=== PATIENT | male | born 1950 | race Caucasian/White ===

== ENCOUNTER 2021-02-25 08:13 | Outpatient (REF) | payer MEDICARE, OTHER, SELFPAY ==
[2021-02-25 12:06] LABS: Prostate Specific Antigen 3.41 ng/mL (<0.05-4.0)
== END 2021-02-25 08:14 | disposition home or self-care (01) ==
LOC: HO.HMGCLDS 08:13
PROVIDERS: Absent Provider Urology; PCP Internal Medicine; Visit Provider Internal Medicine
DX: Z12.5 Encounter for screening for malignant neoplasm of prostate (principal); R97.20 Elevated prostate specific antigen [PSA]
CPT/HCPCS: 36415; 84153

== ENCOUNTER → 2021-03-06 10:54 | Outpatient (BNVA) | payer MEDICARE, OTHER, SELFPAY | PROVIDERS: PCP Internal Medicine; Referring Provider Internal Medicine; Visit Provider Urology | CPT/HCPCS: Q3014 ==

== ENCOUNTER 2021-12-25 12:26 | Emergency (ER) | payer MEDICARE, OTHER, SELFPAY ==
--- NOTE | ~2021-12-25 | XR_ITS ---
EXAMINATION: XR CHEST CLINICAL INFORMATION: Fever COMPARISON: Previous chest x-ray October 2017 TECHNIQUE: Frontal view of the chest was obtained. FINDINGS: No significant abnormality is noted involving the heart, lungs, mediastinum, bony thorax or soft tissues. XR/XR chest 1V IMPRESSION: Unremarkable examination.
[2021-12-25 12:34] VITALS: BP 145/80; PULSE 96; RESP 18; TEMP 37.7; O2SAT 96; BMI 22.7
[2021-12-25] MEDS: Ondansetron ODT 4 MG TAB.RAPDIS TRANSLINGU ×2 (12:41→21:17)
[2021-12-25 12:51] LABS: MANUAL DIFF FLAG NO
[2021-12-25 13:03] LABS: Basophils Percent Auto 0.4 % (0-2); Hematocrit 45.3 % (42.0-52.0); Hemoglobin 16.2 g/dl (14.0-18.0); Imm Gran Abs Auto 0.02 X10*3/uL (0.00-0.03); Imm Gran Pct Auto 0.4 % (0.0-0.4); Lymphocytes Absolute Auto 0.3 X10*3/uL (1.2-4.9); Lymphocytes Percent Auto 5.7 % (20-40); Mean Corpuscular HGB Conc 35.8 g/dl (31.0-36.0); Mean Corpuscular Hemoglobin 31.9 pg (27.0-33.0); Mean Corpuscular Volume 89.2 fL (80.0-98.0); Mean Platelet Volume 8.7 fL (9.4-12.4); Monocytes Absolute Auto 0.4 X10*3/uL (0.1-1.2); Monocytes Percent Auto 6.9 % (2-11); Neutrophils Absolute Auto 4.6 x10*3/uL (2.0-8.3); Neutrophils Percent Auto 86.6 % (45-73); Platelet Count 131 X10*3/uL (160-400); Red Blood Count 5.08 X10*6/uL (4.60-5.80); Red Cell Distribution Width 12.3 % (11.0-16.0); White Blood Count 5.3 X10*3/uL (4.8-10.8)
[2021-12-25 13:07] LABS: Anion Gap 15 (12-20); Blood Urea Nitrogen 13 mg/dL (9-16); Calcium 9.3 mg/dL (8.4-10.2); Carbon Dioxide 24 mmol/L (22-29); Chloride 99 mmol/L (96-108); Estimated Glomerular Filt Rate > 60; Glucose Random 127 mg/dL (60-115); Potassium 4.5 mmol/L (3.3-5.1); Sodium 133 mmol/L (135-145)
[2021-12-25 13:09] LABS: COVID-19 Test Negative (Negative)
[2021-12-25 15:00] LABS: Alanine Aminotransferase 26 U/L (0-40); Albumin Level 4.3 g/dL (3.5-5.0); Alkaline Phosphatase 50 U/L (39-117); Aspartate Amino Transferase 41 U/L (5-37); Bilirubin Direct 0.4 mg/dL (0.0-0.5); Lipase 31 U/L (8-78); Magnesium 1.8 mg/dL (1.6-2.6); Total Protein 6.7 g/dL (6.5-8.0)
[2021-12-25 15:01] LABS: Appearance Urine CLEAR; Color Urine YELLOW; Glucose Urine UA NEG (NEG); Leukocyte Esterase Urine NEG (NEG); Nitrite Urine NEG (NEG); PH 5.5 (5.0-8.0); Specific Gravity - Urine >= 1.030 (1.005-1.025); UACC Culture Trigger NO; Urine Blood 1+ (NEG); Urine Ketones 40 MG/DL (NEG); Urine Protein 2+ MG/DL (NEG-TRACE)
[2021-12-25 15:09] LABS: WBC Urine 0-2 /HPF (0-4)
[2021-12-25 15:10] LABS: Bacteria Urine 1+ /LPF; Squamous Epithelial Cell Urine 1+ /LPF
[2021-12-25] MEDS: 0.9 % Sodium Chloride 1,000 ML 999 ML IV (15:12)
[2021-12-25] MEDS: Metoclopramide HCl 10 MG/2 ML VIAL IVPUSH (15:58)
[2021-12-25 16:00] VITALS: BP 138/82; PULSE 84; RESP 16; TEMP 38.8; O2SAT 98
--- NOTE | 2021-12-25 16:23 | ED.FEVER ---
HPI - Fever General Chief Complaint: Fever <PETE Hamm Last Filed: 12/25/21 16:46> Stated Complaint: Back pain/Fever/Nausea <PETE Hamm Last Filed: 12/25/21 16:46> Time Seen by Provider: 12/25/21 14:24 <PETE Hamm Last Filed: 12/25/21 16:46> Source: patient <PETE Hamm Last Filed: 12/25/21 16:46> Mode of arrival: ambulatory <PETE Hamm Last Filed: 12/25/21 16:46> History of Present Illness HPI Narrative: 71-year-old male with past medical history of BPH, presenting to the ED complaining of chills, intermittent fever T-max 101 degrees, body aches/myalgias, nausea, emesis, nonbloody watery diarrhea x3 days. Also reports tick bite to left lower extremity last which initially had a red circular rash which is now resolved. Denies recent antibiotic use/bad food exposure. Denies headache, CP/SOB, cough, dysuria/hematuria, recent travel <PETE Hamm Last Filed: 12/25/21 16:46> MD elicited complaint: fever <PETE Hamm Last Filed: 12/25/21 16:46> Onset (ago): day(s) <PETE Hamm Last Filed: 12/25/21 16:46> Related Data Home Medications: Previous Rx's Medication Instructions Recorded doxycycline hyclate 100 mg tablet 100 mg PO BID 7 Days #14 tab 12/25/21 <PETE Hamm Last Filed: 12/25/21 16:46> Allergies/Adverse Reactions: Allergies Allergy/AdvReac Type Severity Reaction Status Date / Time No Known Allergies Allergy Verified 12/25/21 12:34 <PETE Hamm Last Filed: 12/25/21 16:46> Review of Systems Review of Systems: Constitutional: + Fever, + Chills, No Night Sweats, + Fatigue, No Malaise ENT/Mouth: No Ear Pain, No Nasal Congestion, No Sinus Pain, No sore throat Eyes: No Eye Pain, No Swelling, No Redness Cardiovascular: No Chest Pain, No SOB, No Dyspnea on Exertion, No Edema, No Palpitations Respiratory: No Cough, No Dyspnea Gastrointestinal: + Nausea, + Vomiting, + Diarrhea, No Constipation, No Abdominal pain Genitourinary: No irregular bleeding, No Dysuria, No Urinary Frequency, No Hematuria, No Urinary Incontinence, No Urgency, No Flank Pain, No Urinary Flow Changes, No Hesitancy Musculoskeletal: No joint pain, No Myalgias, No Joint Swelling Skin: No Skin Lesions, No rash, +tick bite Neuro: No Weakness, No Numbness, No Loss of Consciousness, No Dizziness, No Headache <PETE Hamm - Last Filed: 12/25/21 16:46> Yes all other systems are reviewed and are negative <PETE Hamm - Last Filed: 12/25/21 16:46> [facility] Past Medical History Attestation statement: The following information was validated with the patient. <PETE Hamm - Last Filed: 12/25/21 16:46> Medical History: Medical History Benign prostatic hyperplasia with lower urinary tract symptoms Elevated PSA <PETE Hamm - Last Filed: 12/25/21 16:46> Surgical History: Surgical History History of surgery <PETE Hamm - Last Filed: 12/25/21 16:46> Social History Social History: Social History Advance Directives: No Advance Directives Information Provided: No <PETE Hamm - Last Filed: 12/25/21 16:46> Physical Exam Vital Signs: Vital Signs: Last Vital Signs Temp 102.1 F H 12/25/21 17:25 Pulse 87 12/25/21 17:25 Resp 16 12/25/21 17:25 BP 145/79 H 12/25/21 17:25 Pulse Ox 97 12/25/21 17:25 BMI result Body Mass Index 22.7 <PETE Hamm - Last Filed: 12/25/21 16:46> Vital Signs: Last Vital Signs Temp 102.1 F H 12/25/21 17:25 Pulse 87 12/25/21 17:25 Resp 16 12/25/21 17:25 BP 145/79 H 12/25/21 17:25 Pulse Ox 97 12/25/21 17:25 BMI result Body Mass Index 22.7 <PETE Lassiter - Last Filed: 12/25/21 20:41> Const: General: cooperative, healthy appearing and no acute distress <PETE Hamm - Last Filed: 12/25/21 16:46> Orientation/consciousness: patient oriented x3 <PETE Hamm - Last Filed: 12/25/21 16:46> Limitations: no limitations <PETE Hamm - Last Filed: 12/25/21 16:46> HENMT: Head: Yes normal to inspection and Yes atraumatic <PETE Hamm - Last Filed: 12/25/21 16:46> Ears: hearing grossly normal bilaterally <PETE Hamm - Last Filed: 12/25/21 16:46> General nose exam: Normal external nose present <PETE Hamm - Last Filed: 12/25/21 16:46> Face and sinus: Yes normal facial exam <PETE Hamm - Last Filed: 12/25/21 16:46> Eyes: General: appearance normal, both eyes and all related structures <PETE Hamm - Last Filed: 12/25/21 16:46> EOM: EOMs intact bilaterally <PETE Hamm - Last Filed: 12/25/21 16:46> Neck: Neck: Yes normal visual inspection and Yes no meningeal signs <PETE Hamm - Last Filed: 12/25/21 16:46> Resp: Effort & Inspection: normal respiratory effort and no respiratory distress <PETE Hamm - Last Filed: 12/25/21 16:46> Auscultation: clear to auscultation bilaterally, no rales, no rhonchi and no wheezes <PETE Hamm - Last Filed: 12/25/21 16:46> Cardio: Rate: regular rate <PETE Hamm - Last Filed: 12/25/21 16:46> Heart sounds: S1 normal heart sound present and S2 normal heart sound present <PETE Hamm - Last Filed: 12/25/21 16:46> GI: Inspection: Yes normal to inspection <PETE Hamm - Last Filed: 12/25/21 16:46> Palpation (GI): Soft to palpation, nontender, no guarding and not rigid <PETE Hamm - Last Filed: 12/25/21 16:46> : General: Yes no CVA tenderness <Lea Noel PA - Last Filed: 12/25/21 16:46> Back/Spine/Pelvis: Back: no CVA tenderness <PETE Hamm - Last Filed: 12/25/21 16:46> Skin: Other: No appreciable rash. Small papule noted to left lower extremity at prior tick site <PETE Hamm - Last Filed: 12/25/21 16:46> Rashes: no rashes <Lea Noel PA - Last Filed: 12/25/21 16:46> Wounds: no wounds <Lea Noel PA - Last Filed: 12/25/21 16:46> Neuro: General: patient oriented x3 and no meningeal signs <PETE Hamm - Last Filed: 12/25/21 16:46> Gait exam (Neuro): Normal gait present <PETE Hamm - Last Filed: 12/25/21 16:46> Extrem: General: Yes normal to inspection and Yes no pedal edema <PETE Hamm - Last Filed: 12/25/21 16:46> Course Course Course Narrative: -1640--no leukocytosis. H&H stable. Pale it is mildly low at 131. AST mildly elevated. Labs otherwise unremarkable. -UA with RBCs/not infected. -COVID-19 negative -1700--ED care transferred PETE Gayathri pending lactic/blood cultures, stool studies, influenza swab, CXR, and re-evaluation. <PETE Hamm - Last Filed: 12/25/21 16:46> Reevaluation(s) Reevaluation #1: Lactic of 1. C diff negative. Influenza negative. Chest x-ray within normal limits. At this time patient will be discharged home on doxycycline. <PETE Lassiter - Last Filed: 12/25/21 20:41> Time: 20:39 <PETE Lassiter - Last Filed: 12/25/21 20:41> MDM - Fever MDM Narrative Medical decision making narrative: 71-year-old male with past medical history of BPH, presenting to the ED complaining of chills, intermittent fever T-max 101 degrees, body aches/myalgias, nausea, emesis, nonbloody watery diarrhea x3 days. On exam low-grade temp 99.8 degrees orally, 101.9 rectally, NAD/nontoxic, abdomen soft/nontender, lungs CTA. No CVA tenderness. Concern for viral syndrome/COVID-19 versus influenza vs gastroenteritis/infectious diarrhea vs ?Tick-borne illness although less likely. Low concern for severe sepsis at this time. Unlikely appendicitis/diverticulitis without tenderness on exam Plan: Labs, UA, COVID-19 testing, influenza testing, IVF, stool studies, CXR, re-evaluate <PETE Hamm - Last Filed: 12/25/21 16:46> Differential Diagnosis Differential diagnosis: Likely fever of unknown origin, gastroenteritis and viral infection <PETE Hamm - Last Filed: 12/25/21 16:46> Medical Records Attestation: I reviewed the patient's medical records. <PETE Hamm - Last Filed: 12/25/21 16:46> Lab Data Attestation: I reviewed the patient's lab results. <PETE Hamm - Last Filed: 12/25/21 16:46> Result diagrams: : 12/25/21 12:47 12/25/21 12:47 <PETE Hamm - Last Filed: 12/25/21 16:46> Labs: Lab Results 12/25/21 12/25/21 12/25/21 Range/Units 12:47 12:47 12:47 WBC 5.3 (4.8-10.8) X10*3/uL RBC 5.08 (4.60-5.80) X10*6/uL Hgb 16.2 (14.0-18.0) g/dl Hct 45.3 (42.0-52.0) % MCV 89.2 (80.0-98.0) fL MCH 31.9 (27.0-33.0) pg MCHC 35.8 (31.0-36.0) g/dl RDW 12.3 (11.0-16.0) % Plt Count 131 L (160-400) X10*3/uL MPV 8.7 L (9.4-12.4) fL Immature Gran % (Auto) 0.4 (0.0-0.4) % Neut % (Auto) 86.6 H (45-73) % Lymph % (Auto) 5.7 L (20-40) % [place] % (Auto) 6.9 (2-11) % Eos % (Auto) 0.0 (0-4) % Baso % (Auto) 0.4 (0-2) % Lymph # (Auto) 0.3 L (1.2-4.9) X10*3/uL [place] # (Auto) 0.4 (0.1-1.2) X10*3/uL Eos # (Auto) 0.0 (0.0-0.4) X10*3/uL Baso # (Auto) 0.0 (0.0-0.2) X10*3/uL Abs Immat Gran (auto) 0.02 (0.00-0.03) X10*3/uL Absolute Neuts (auto) 4.6 (2.0-8.3) x10*3/uL Absolute Nucleated RBC 0.000 (0.0-0.012) X10*3/uL Nucleated RBC % (auto) 0.0 (0.0-0.2) /100WBC Sodium 133 L (135-145) mmol/L Potassium 4.5 (3.3-5.1) mmol/L Chloride 99 (96-108) mmol/L Carbon Dioxide 24 (22-29) mmol/L Anion Gap 15 (12-20) BUN 13 (9-16) mg/dL Creatinine 0.97 (0.5-1.4) mg/dL Estim Creat Clear Calc 63.0 Estimated GFR > 60 Random Glucose 127 H (60-115) mg/dL Lactic Acid (0.5-2.0) mmol/L Calcium 9.3 (8.4-10.2) mg/dL Magnesium 1.8 (1.6-2.6) mg/dL Total Bilirubin 1.0 (0.0-1.0) mg/dL Direct Bilirubin 0.4 (0.0-0.5) mg/dL AST 41 H (5-37) U/L ALT 26 (0-40) U/L Alkaline Phosphatase 50 (39-117) U/L Total Protein 6.7 (6.5-8.0) g/dL Albumin 4.3 (3.5-5.0) g/dL Lipase 31 (8-78) U/L Urine Color Urine Appearance Urine pH (5.0-8.0) Ur Specific [place] (1.005-1.025) Urine Protein (NEG-TRACE) MG/DL Urine Glucose (UA) (NEG) MG/DL Urine Ketones (NEG) MG/DL Urine Blood (NEG) Urine Nitrite (NEG) Ur Leukocyte Esterase (NEG) Urine RBC (0) /HPF Urine WBC (0-4) /HPF Ur Squamous Epith Cells /LPF Urine Bacteria /LPF Hyaline Casts /LPF Granular Casts /LPF Stool Leukocytes, Qual (NEGATIVE) C. difficile Tox B Gene (Negative) COVID-19 (JOLEEN) Negative (Negative) COVID-19 Clin Com See Note Influenza Type A ([facility]) (Negative) Influenza Type B ([facility]) (Negative) Influenza A & B Note 12/25/21 12/25/21 12/25/21 Range/Units 14:34 17:20 18:57 WBC (4.8-10.8) X10*3/uL RBC (4.60-5.80) X10*6/uL Hgb (14.0-18.0) g/dl Hct (42.0-52.0) % MCV (80.0-98.0) fL MCH (27.0-33.0) pg MCHC (31.0-36.0) g/dl RDW (11.0-16.0) % Plt Count (160-400) X10*3/uL MPV (9.4-12.4) fL Immature Gran % (Auto) (0.0-0.4) % Neut % (Auto) (45-73) % Lymph % (Auto) (20-40) % [place] % (Auto) (2-11) % Eos % (Auto) (0-4) % Baso % (Auto) (0-2) % Lymph # (Auto) (1.2-4.9) X10*3/uL [place] # (Auto) (0.1-1.2) X10*3/uL Eos # (Auto) (0.0-0.4) X10*3/uL Baso # (Auto) (0.0-0.2) X10*3/uL Abs Immat Gran (auto) (0.00-0.03) X10*3/uL Absolute Neuts (auto) (2.0-8.3) x10*3/uL Absolute Nucleated RBC (0.0-0.012) X10*3/uL Nucleated RBC % (auto) (0.0-0.2) /100WBC Sodium (135-145) mmol/L Potassium (3.3-5.1) mmol/L Chloride (96-108) mmol/L Carbon Dioxide (22-29) mmol/L Anion Gap (12-20) BUN (9-16) mg/dL Creatinine (0.5-1.4) mg/dL Estim Creat Clear Calc Estimated GFR Random Glucose (60-115) mg/dL Lactic Acid (0.5-2.0) mmol/L Calcium (8.4-10.2) mg/dL Magnesium (1.6-2.6) mg/dL Total Bilirubin (0.0-1.0) mg/dL Direct Bilirubin (0.0-0.5) mg/dL AST (5-37) U/L ALT (0-40) U/L Alkaline Phosphatase (39-117) U/L Total Protein (6.5-8.0) g/dL Albumin (3.5-5.0) g/dL Lipase (8-78) U/L Urine Color YELLOW Urine Appearance CLEAR Urine pH 5.5 (5.0-8.0) Ur Specific [place] >= 1.030 H (1.005-1.025) Urine Protein 2+ H (NEG-TRACE) MG/DL Urine Glucose (UA) NEG (NEG) MG/DL Urine Ketones 40 (NEG) MG/DL Urine Blood 1+ H (NEG) Urine Nitrite NEG (NEG) Ur Leukocyte Esterase NEG (NEG) Urine RBC 5-9 H (0) /HPF Urine WBC 0-2 (0-4) /HPF Ur Squamous Epith Cells 1+ /LPF Urine Bacteria 1+ /LPF Hyaline Casts 1-4 /LPF Granular Casts 1-4 /LPF Stool Leukocytes, Qual (NEGATIVE) C. difficile Tox B Gene NEGATIVE (Negative) COVID-19 (JOLEEN) (Negative) COVID-19 Clin Com Influenza Type A ([facility]) Negative (Negative) Influenza Type B ([facility]) Negative (Negative) Influenza A & B Note See Note 12/25/21 12/25/21 Range/Units 18:57 19:02 WBC (4.8-10.8) X10*3/uL RBC (4.60-5.80) X10*6/uL Hgb (14.0-18.0) g/dl Hct (42.0-52.0) % MCV (80.0-98.0) fL MCH (27.0-33.0) pg MCHC (31.0-36.0) g/dl RDW (11.0-16.0) % Plt Count (160-400) X10*3/uL MPV (9.4-12.4) fL Immature Gran % (Auto) (0.0-0.4) % Neut % (Auto) (45-73) % Lymph % (Auto) (20-40) % [place] % (Auto) (2-11) % Eos % (Auto) (0-4) % Baso % (Auto) (0-2) % Lymph # (Auto) (1.2-4.9) X10*3/uL [place] # (Auto) (0.1-1.2) X10*3/uL Eos # (Auto) (0.0-0.4) X10*3/uL Baso # (Auto) (0.0-0.2) X10*3/uL Abs Immat Gran (auto) (0.00-0.03) X10*3/uL Absolute Neuts (auto) (2.0-8.3) x10*3/uL Absolute Nucleated RBC (0.0-0.012) X10*3/uL Nucleated RBC % (auto) (0.0-0.2) /100WBC Sodium (135-145) mmol/L Potassium (3.3-5.1) mmol/L Chloride (96-108) mmol/L Carbon Dioxide (22-29) mmol/L Anion Gap (12-20) BUN (9-16) mg/dL Creatinine (0.5-1.4) mg/dL Estim Creat Clear Calc Estimated GFR Random Glucose (60-115) mg/dL Lactic Acid 1.0 (0.5-2.0) mmol/L Calcium (8.4-10.2) mg/dL Magnesium (1.6-2.6) mg/dL Total Bilirubin (0.0-1.0) mg/dL Direct Bilirubin (0.0-0.5) mg/dL AST (5-37) U/L ALT (0-40) U/L Alkaline Phosphatase (39-117) U/L Total Protein (6.5-8.0) g/dL Albumin (3.5-5.0) g/dL Lipase (8-78) U/L Urine Color Urine Appearance Urine pH (5.0-8.0) Ur Specific [place] (1.005-1.025) Urine Protein (NEG-TRACE) MG/DL Urine Glucose (UA) (NEG) MG/DL Urine Ketones (NEG) MG/DL Urine Blood (NEG) Urine Nitrite (NEG) Ur Leukocyte Esterase (NEG) Urine RBC (0) /HPF Urine WBC (0-4) /HPF Ur Squamous Epith Cells /LPF Urine Bacteria /LPF Hyaline Casts /LPF Granular Casts /LPF Stool Leukocytes, Qual NEGATIVE (NEGATIVE) C. difficile Tox B Gene (Negative) COVID-19 (OJLEEN) (Negative) COVID-19 Clin Com Influenza Type A ([facility]) (Negative) Influenza Type B ([facility]) (Negative) Influenza A & B Note <PETE Hamm - Last Filed: 12/25/21 16:46> Lab Results 12/25/21 12/25/21 12/25/21 Range/Units 12:47 12:47 12:47 WBC 5.3 (4.8-10.8) X10*3/uL RBC 5.08 (4.60-5.80) X10*6/uL Hgb 16.2 (14.0-18.0) g/dl Hct 45.3 (42.0-52.0) % MCV 89.2 (80.0-98.0) fL MCH 31.9 (27.0-33.0) pg MCHC 35.8 (31.0-36.0) g/dl RDW 12.3 (11.0-16.0) % Plt Count 131 L (160-400) X10*3/uL MPV 8.7 L (9.4-12.4) fL Immature Gran % (Auto) 0.4 (0.0-0.4) % Neut % (Auto) 86.6 H (45-73) % Lymph % (Auto) 5.7 L (20-40) % [place] % (Auto) 6.9 (2-11) % Eos % (Auto) 0.0 (0-4) % Baso % (Auto) 0.4 (0-2) % Lymph # (Auto) 0.3 L (1.2-4.9) X10*3/uL [place] # (Auto) 0.4 (0.1-1.2) X10*3/uL Eos # (Auto) 0.0 (0.0-0.4) X10*3/uL Baso # (Auto) 0.0 (0.0-0.2) X10*3/uL Abs Immat Gran (auto) 0.02 (0.00-0.03) X10*3/uL Absolute Neuts (auto) 4.6 (2.0-8.3) x10*3/uL Absolute Nucleated RBC 0.000 (0.0-0.012) X10*3/uL Nucleated RBC % (auto) 0.0 (0.0-0.2) /100WBC Sodium 133 L (135-145) mmol/L Potassium 4.5 (3.3-5.1) mmol/L Chloride 99 (96-108) mmol/L Carbon Dioxide 24 (22-29) mmol/L Anion Gap 15 (12-20) BUN 13 (9-16) mg/dL Creatinine 0.97 (0.5-1.4) mg/dL Estim Creat Clear Calc 63.0 Estimated GFR > 60 Random Glucose 127 H (60-115) mg/dL Lactic Acid (0.5-2.0) mmol/L Calcium 9.3 (8.4-10.2) mg/dL Magnesium 1.8 (1.6-2.6) mg/dL Total Bilirubin 1.0 (0.0-1.0) mg/dL Direct Bilirubin 0.4 (0.0-0.5) mg/dL AST 41 H (5-37) U/L ALT 26 (0-40) U/L Alkaline Phosphatase 50 (39-117) U/L Total Protein 6.7 (6.5-8.0) g/dL Albumin 4.3 (3.5-5.0) g/dL Lipase 31 (8-78) U/L Urine Color Urine Appearance Urine pH (5.0-8.0) Ur Specific [place] (1.005-1.025) Urine Protein (NEG-TRACE) MG/DL Urine Glucose (UA) (NEG) MG/DL Urine Ketones (NEG) MG/DL Urine Blood (NEG) Urine Nitrite (NEG) Ur Leukocyte Esterase (NEG) Urine RBC (0) /HPF Urine WBC (0-4) /HPF Ur Squamous Epith Cells /LPF Urine Bacteria /LPF Hyaline Casts /LPF Granular Casts /LPF Stool Leukocytes, Qual (NEGATIVE) C. difficile Tox B Gene (Negative) COVID-19 (JOLEEN) Negative (Negative) COVID-19 Clin Com See Note Influenza Type A ([facility]) (Negative) Influenza Type B ([facility]) (Negative) Influenza A & B Note 12/25/21 12/25/21 12/25/21 Range/Units 14:34 17:20 18:57 WBC (4.8-10.8) X10*3/uL RBC (4.60-5.80) X10*6/uL Hgb (14.0-18.0) g/dl Hct (42.0-52.0) % MCV (80.0-98.0) fL MCH (27.0-33.0) pg MCHC (31.0-36.0) g/dl RDW (11.0-16.0) % Plt Count (160-400) X10*3/uL MPV (9.4-12.4) fL Immature Gran % (Auto) (0.0-0.4) % Neut % (Auto) (45-73) % Lymph % (Auto) (20-40) % [place] % (Auto) (2-11) % Eos % (Auto) (0-4) % Baso % (Auto) (0-2) % Lymph # (Auto) (1.2-4.9) X10*3/uL [place] # (Auto) (0.1-1.2) X10*3/uL Eos # (Auto) (0.0-0.4) X10*3/uL Baso # (Auto) (0.0-0.2) X10*3/uL Abs Immat Gran (auto) (0.00-0.03) X10*3/uL Absolute Neuts (auto) (2.0-8.3) x10*3/uL Absolute Nucleated RBC (0.0-0.012) X10*3/uL Nucleated RBC % (auto) (0.0-0.2) /100WBC Sodium (135-145) mmol/L Potassium (3.3-5.1) mmol/L Chloride (96-108) mmol/L Carbon Dioxide (22-29) mmol/L Anion Gap (12-20) BUN (9-16) mg/dL Creatinine (0.5-1.4) mg/dL Estim Creat Clear Calc Estimated GFR Random Glucose (60-115) mg/dL Lactic Acid (0.5-2.0) mmol/L Calcium (8.4-10.2) mg/dL Magnesium (1.6-2.6) mg/dL Total Bilirubin (0.0-1.0) mg/dL Direct Bilirubin (0.0-0.5) mg/dL AST (5-37) U/L ALT (0-40) U/L Alkaline Phosphatase (39-117) U/L Total Protein (6.5-8.0) g/dL Albumin (3.5-5.0) g/dL Lipase (8-78) U/L Urine Color YELLOW Urine Appearance CLEAR Urine pH 5.5 (5.0-8.0) Ur Specific [place] >= 1.030 H (1.005-1.025) Urine Protein 2+ H (NEG-TRACE) MG/DL Urine Glucose (UA) NEG (NEG) MG/DL Urine Ketones 40 (NEG) MG/DL Urine Blood 1+ H (NEG) Urine Nitrite NEG (NEG) Ur Leukocyte Esterase NEG (NEG) Urine RBC 5-9 H (0) /HPF Urine WBC 0-2 (0-4) /HPF Ur Squamous Epith Cells 1+ /LPF Urine Bacteria 1+ /LPF Hyaline Casts 1-4 /LPF Granular Casts 1-4 /LPF Stool Leukocytes, Qual (NEGATIVE) C. difficile Tox B Gene NEGATIVE (Negative) COVID-19 ([facility]LEEN) (Negative) COVID-19 Clin Com Influenza Type A ([facility]) Negative (Negative) Influenza Type B ([facility]) Negative (Negative) Influenza A & B Note See Note 12/25/21 12/25/21 Range/Units 18:57 19:02 WBC (4.8-10.8) X10*3/uL RBC (4.60-5.80) X10*6/uL Hgb (14.0-18.0) g/dl Hct (42.0-52.0) % MCV (80.0-98.0) fL MCH (27.0-33.0) pg MCHC (31.0-36.0) g/dl RDW (11.0-16.0) % Plt Count (160-400) X10*3/uL MPV (9.4-12.4) fL Immature Gran % (Auto) (0.0-0.4) % Neut % (Auto) (45-73) % Lymph % (Auto) (20-40) % [place] % (Auto) (2-11) % Eos % (Auto) (0-4) % Baso % (Auto) (0-2) % Lymph # (Auto) (1.2-4.9) X10*3/uL [place] # (Auto) (0.1-1.2) X10*3/uL Eos # (Auto) (0.0-0.4) X10*3/uL Baso # (Auto) (0.0-0.2) X10*3/uL Abs Immat Gran (auto) (0.00-0.03) X10*3/uL Absolute Neuts (auto) (2.0-8.3) x10*3/uL Absolute Nucleated RBC (0.0-0.012) X10*3/uL Nucleated RBC % (auto) (0.0-0.2) /100WBC Sodium (135-145) mmol/L Potassium (3.3-5.1) mmol/L Chloride (96-108) mmol/L Carbon Dioxide (22-29) mmol/L Anion Gap (12-20) BUN (9-16) mg/dL Creatinine (0.5-1.4) mg/dL Estim Creat Clear Calc Estimated GFR Random Glucose (60-115) mg/dL Lactic Acid 1.0 (0.5-2.0) mmol/L Calcium (8.4-10.2) mg/dL Magnesium (1.6-2.6) mg/dL Total Bilirubin (0.0-1.0) mg/dL Direct Bilirubin (0.0-0.5) mg/dL AST (5-37) U/L ALT (0-40) U/L Alkaline Phosphatase (39-117) U/L Total Protein (6.5-8.0) g/dL Albumin (3.5-5.0) g/dL Lipase (8-78) U/L Urine Color Urine Appearance Urine pH (5.0-8.0) Ur Specific [place] (1.005-1.025) Urine Protein (NEG-TRACE) MG/DL Urine Glucose (UA) (NEG) MG/DL Urine Ketones (NEG) MG/DL Urine Blood (NEG) Urine Nitrite (NEG) Ur Leukocyte Esterase (NEG) Urine RBC (0) /HPF Urine WBC (0-4) /HPF Ur Squamous Epith Cells /LPF Urine Bacteria /LPF Hyaline Casts /LPF Granular Casts /LPF Stool Leukocytes, Qual NEGATIVE (NEGATIVE) C. difficile Tox B Gene (Negative) COVID-19 (JOLEEN) (Negative) COVID-19 Clin Com Influenza Type A ([facility]) (Negative) Influenza Type B ([facility]) (Negative) Influenza A & B Note <PETE Lassiter - Last Filed: 12/25/21 20:41> Critical Care Time Critical Care Time Critical Care Time: No <PETE Lassiter - Last Filed: 12/25/21 20:41> Discharge Plan Discharge Clinical Impression: Gastroenteritis, Tick bite <PETE Hamm - Last Filed: 12/25/21 16:46> Patient Disposition: Home, Self-Care <PETE Hamm - Last Filed: 12/25/21 16:46> Instructions: Tick Bite (ED), Gastroenteritis (DC) <PETE Hamm - Last Filed: 12/25/21 16:46> Additional Instructions: Your blood work is reassuring. Please follow-up with your primary care doctor. You need to have stool studies taken. You tested negative for COVID-19 Due to your history startg taking doxycycline twice daily for 1 week until your tick-borne illness studies result If symptoms persist or worsen, you have fever unresolved with medications, persistent or worsening nausea/vomiting or diarrhea please return to the ED <PETE Hamm - Last Filed: 12/25/21 16:46> Prescriptions: New doxycycline hyclate 100 mg tablet 100 mg PO BID 7 Days Qty: 14 0RF <PETE Hamm - Last Filed: 12/25/21 16:46> Referrals: Darryl Bone MD [Primary Care Provider] - 2 days <PETE Hamm - Last Filed: 12/25/21 16:46> Stand Alone Forms: Work/School Release <PETE Hamm - Last Filed: 12/25/21 16:46>
[2021-12-25 17:25] VITALS: BP 145/79; PULSE 87; RESP 16; TEMP 38.9; O2SAT 97
[2021-12-25] MEDS: Acetaminophen 325 MG TABLET 650 MG PO (17:56)
[2021-12-25 18:07] LABS: IDNOW Serial# 55D5AD1C; Influenza A Negative (Negative); Influenza B2 Negative (Negative)
[2021-12-25 19:40] LABS: Leukocytes Stool Qualitative NEGATIVE (NEGATIVE)
[2021-12-25 19:56] LABS: CDiff Gene PCR NEGATIVE (Negative)
[2021-12-25 20:43] VITALS: BP 141/76; PULSE 56; RESP 16; TEMP 37.1; O2SAT 98
--- NOTE | 2021-12-25 20:45 | PC.NURSE ---
patient tolerating PO intake, reports nausea comes and goes. patient in no obvious distress. reports feeling mostly improved at this time. family at bedside
[2021-12-26 08:32] LABS: Lyme Abs Screen <0.90 index
[2021-12-30 16:41] LABS: A. Phagocytphilium DNA,RT-PCR DETECTED (NOT DETECTED); Babesia Microti DNA, RT-PCR NOT DETECTED (NOT DETECTED); Borrelia Miyamotoi,DNA RT-PCR NOT DETECTED (NOT DETECTED); E.Chaffeensis DNA RT-PCR NOT DETECTED (NOT DETECTED); Lyme(Borrelia ssp)DNA RT-PCR NOT DETECTED (NOT DETECTED); Source-Tick borne disease BLOOD
== END 2021-12-25 21:28 | disposition home or self-care (01) ==
PROVIDERS: Physician Assistant; Emergency Provider Emergency Medicine Emergency Medical Services; PCP Internal Medicine
DX: A93.8 Other specified arthropod-borne viral fevers (principal); K52.9 Noninfective gastroenteritis and colitis, unspecified; M54.50 Low back pain, unspecified; M79.10 Myalgia, unspecified site; Z20.822 Contact with and (suspected) exposure to COVID-19; Z79.899 Other long term (current) drug therapy
CPT/HCPCS: 36415; 71045; 80048; 80076; 81001; 81003; 83605; 83690; 83735; 85025; 86617; 86618; 87040; 87045; 87046; 87493; 87502; 87635; 87798; 87801; 89055; 96361; 96374; 99284; 99285; J2765

== ENCOUNTER 2021-12-31 08:49 | Outpatient (REF) | payer MEDICARE, OTHER, SELFPAY ==
[2021-12-31 12:00] LABS: Estimated Average Glucose 103 mg/dL; Hemoglobin A1c % 5.2 %
[2021-12-31 12:02] LABS: Anion Gap 12 (12-20); Blood Urea Nitrogen 10 mg/dL (9-16); C Reactive Protein 0.55 mg/dL (< or = 0.50); Calcium 9.6 mg/dL (8.4-10.2); Carbon Dioxide 31 mmol/L (22-29); Chloride 104 mmol/L (96-108); Cholesterol 199 mg/dL; Estimated Glomerular Filt Rate > 60; Glucose Fasting 101 mg/dL (60-99); HDL Cholesterol 44 mg/dL; LDL Cholesterol Calculated 124 mg/dl; Lipase 71 U/L (8-78); Potassium 4.4 mmol/L (3.3-5.1); Sodium 143 mmol/L (135-145); Triglycerides 159 mg/dL
== END 2021-12-31 08:50 | disposition home or self-care (01) ==
LOC: HO.HMGCLDS 08:49
PROVIDERS: PCP Internal Medicine; Visit Provider Internal Medicine
DX: R10.9 Unspecified abdominal pain (principal); R19.7 Diarrhea, unspecified; E78.00 Pure hypercholesterolemia, unspecified; R73.9 Hyperglycemia, unspecified
CPT/HCPCS: 36415; 80048; 80061; 83036; 83690; 86140

== ENCOUNTER 2022-06-15 10:58 | Outpatient (REF) | payer MEDICARE, OTHER, SELFPAY ==
--- NOTE | ~2022-06-15 | XR_ITS ---
EXAMINATION: XR FOOT, LEFT CLINICAL INFORMATION: Heel pain COMPARISON: None TECHNIQUE: AP, lateral, and oblique views of the left foot. FINDINGS: No fracture or dislocation. Mild subchondral sclerosis and small osteophytes the PIP and DIP joints of the second third toes and fourth toe DIP joint. Joint spaces are maintained. Normal Lisfranc alignment. Minimal posterior calcaneal enthesophyte formation. XR/XR foot LT min 3V IMPRESSION: 1. No osseous injury identified. 2. Mild IP joint osteoarthritis.
== END 2022-06-15 10:59 | disposition home or self-care (01) ==
LOC: HO.XRAY 10:58
PROVIDERS: PCP Internal Medicine; Visit Provider Internal Medicine
DX: M79.672 Pain in left foot (principal)
CPT/HCPCS: 73630

== ENCOUNTER 2022-08-23 11:26 | Outpatient (REF) | payer MEDICARE, OTHER, SELFPAY ==
[2022-08-23 14:40] LABS: PSA,Total (Free>4and<10) 3.55 ng/mL (0.00-4.00)
== END 2022-08-23 11:27 | disposition home or self-care (01) ==
LOC: HO.HMGCLDS 11:26
PROVIDERS: PCP Internal Medicine; Visit Provider Urology
DX: R97.20 Elevated prostate specific antigen [PSA] (principal); Z12.5 Encounter for screening for malignant neoplasm of prostate
CPT/HCPCS: 36415; 84153

== ENCOUNTER → 2022-09-01 15:03 | Outpatient (BNVA) | payer MEDICARE, OTHER, SELFPAY | PROVIDERS: PCP Internal Medicine; Visit Provider Urology | DX: R97.20 Elevated prostate specific antigen [PSA] (principal); N40.0 Benign prostatic hyperplasia without lower urinary tract symptoms | CPT/HCPCS: 51798; 99212 ==

== ENCOUNTER 2023-08-29 09:01 | Outpatient (REF) | payer MEDICARE, OTHER, SELFPAY ==
[2023-08-30 11:53] LABS: Free Prostate Spec Ag 1.3 ng/mL; Percent Free Prostate Spec Ag 18 % (calc) (>25); Prostate Specific Ag Total 7.2 ng/mL (< OR = 4.0)
== END 2023-08-29 09:02 | disposition home or self-care (01) ==
LOC: HO.HMGCLDS 09:01
PROVIDERS: PCP Internal Medicine; Visit Provider Urology
DX: N40.1 Benign prostatic hyperplasia with lower urinary tract symptoms (principal); R97.20 Elevated prostate specific antigen [PSA]; Z12.5 Encounter for screening for malignant neoplasm of prostate
CPT/HCPCS: 36415; 84153; 84154

== ENCOUNTER 2023-09-01 08:55 | Outpatient (AMB) | payer MEDICARE, OTHER, SELFPAY ==
--- NOTE | 2023-09-01 08:55 | MHC.OFFVIS ---
Intake Intake Visit Reasons: 1Y PSA(set) Intake Note: Patient is Present for Telephone Follow Up For Urology Med:None Antibiotic Allergy: None Blood Thinner:None Allergies No Known Allergies Allergy (Verified 09/01/23 08:57) Medication List - Last Reconciled 09/01/23 by Bentley Torres MD doxycycline hyclate 100 mg PO BID 7 days doxycycline hyclate 100 mg PO BID 5 days ondansetron 4 mg PO ONCE PRN HPI HPI Comments History of Present Illness Details Tristan is a very pleasant male. He is a patient of Dr. Bone. He is in for the following issues - elevated PSA - lower urinary tract symptoms Telemedicine Evaluation 15 min Consultation [employer] Declan Video attempted Feeling slight incomplete bladder emptying PSA has jumped Previously high in 2019 with prostatic inflammation Recommend repeat PSA in 2 months with no coffee morning of If indicated would then plan MRI with directed biopsy Elevated PSA Discussed current results Prior biopsy 2018 negative, PSA at biopsy 9 PSA 03/12 4.4, 03/13 3.4, 08/14 3.5, 09/15 7.2 18% Keep doing green tea extract [facility] Medical History Benign prostatic hyperplasia with lower urinary tract symptoms Elevated PSA Surgical History History of surgery Review of Systems Const All systems reviewed & are unremarkable except as noted in HPI and below Reports no additional complaints Resp Reports no additional complaints GI Reports no additional complaints Reports as per HPI Musc Reports no additional complaints Physical Exam Telemedicine evaluation Appropriate responses Regular breathing rate and rhythm HEENT Head: Yes normal to inspection Ears: hearing grossly normal bilaterally Eyes General: appearance normal, both eyes and all related structures Neck Neck: Yes normal visual inspection Chest Chest palpation & inspection: normal inspection of the chest Resp Effort & Inspection: normal respiratory effort and able to speak in complete sentences Assessment & Plan Assessment & Plan (1) Elevated PSA: Code(s): R97.20 - Elevated prostate specific antigen [PSA] (2) Benign prostatic hyperplasia with lower urinary tract symptoms: Code(s): N40.1 - Benign prostatic hyperplasia with lower urinary tract symptoms Qualifiers: Lower urinary tract symptom detail: incomplete bladder emptying Qualified Code(s): N40.1 - Benign prostatic hyperplasia with lower urinary tract symptoms; R39.14 - Feeling of incomplete bladder emptying Plan Two month follow-up PSA Orders: Orders Prostate Specific Antigen 08/29/23 R97.20 - Elevated prostate specific antigen [PSA] PSA,Total (Free>4and<10) 2 Months R97.20 - Elevated prostate specific antigen [PSA] Patient Instructions: Imaging studies, laboratory and physical exam results were discussed and reviewed in detail. No major barriers to patient understanding were identified. An opportunity to ask questions regarding the treatment plan was provided. All questions were answered. The patient expressed understanding and agreement with the above treatment plan. The patient is aware they should contact our office by phone for worsening of their current condition or the appearance of new urologic symptoms. Compliance is encouraged with any medications and followup testing that is ordered. It is a privilege to participate in the urologic care of your patient. If you have any questions or concerns regarding treatment for the above conditions, or other urologic issues, please do not hesitate to contact me. The office telephone contact is [phone]. This note is constructed using voice recognition software. While every effort has been made to ensure accuracy developmental services worker errors may have been included. Yours sincerely, Dr Bentley Torres MD, [facility] - Urology Providers of Expert, Compassionate Care for the Genitourinary System Telehealth Telehealth Location of provider rendering services: practice address Location of patient: address on file Patient Identification confirmed using: Name, : Yes Telehealth method: video Patient verbally consented to treatment: Yes Patient verbally consented to billing insurance company: Yes Patient informed of any privacy concerns related to visit: Yes Coding Level of Care Code Tele Est Pt Level 4 (14410) Diagnoses Elevated PSA R97.20 Benign prostatic hyperplasia with incomplete bladder emptying N40.1; R39.14 Lower urinary tract symptom detail: incomplete bladder emptying
== END 2023-09-01 09:08 | disposition home or self-care (01) ==
LOC: HO.HUSH 08:55
PROVIDERS: PCP Internal Medicine; Visit Provider Urology
DX: R97.20 Elevated prostate specific antigen [PSA] (principal); N40.1 Benign prostatic hyperplasia with lower urinary tract symptoms; R39.14 Feeling of incomplete bladder emptying
CPT/HCPCS: 99213

== ENCOUNTER → 2023-09-01 08:55 | Outpatient (BNVA) | payer MEDICARE, OTHER, SELFPAY | PROVIDERS: PCP Internal Medicine; Visit Provider Urology | DX: R97.20 Elevated prostate specific antigen [PSA] (principal) ==

== ENCOUNTER 2023-10-28 10:31 | Outpatient (REF) | payer MEDICARE, OTHER, SELFPAY ==
[2023-10-28 14:26] LABS: PSA,Total (Free>4and<10) 3.27 ng/mL (0.00-4.00)
== END 2023-10-28 10:32 | disposition home or self-care (01) ==
LOC: HO.HMGCLDS 10:31
PROVIDERS: Visit Provider Urology
DX: R97.20 Elevated prostate specific antigen [PSA] (principal); Z12.5 Encounter for screening for malignant neoplasm of prostate
CPT/HCPCS: 36415; 84153

== ENCOUNTER 2023-11-04 09:41 | Outpatient (AMB) | payer MEDICARE, OTHER, SELFPAY ==
--- NOTE | 2023-11-04 10:06 | A.OFFVIS_ITS ---
Intake Intake Visit Reasons: 2m/PSA(set) Intake Note: Patient is Present for Follow Up PSA Urology Medication: None Antibiotic Allergies: None Blood Thinners: None PVR: 58 PSA- 10/28/2023 3.27 Patient states that he does get up 4-5 times during the night Allergies No Known Allergies Allergy (Verified 11/04/23 10:10) HPI HPI Comments History of Present Illness Details Tristan is a very pleasant male. He is a patient of Dr. Bone. He is in for the following issues - elevated PSA - lower urinary tract symptoms PSA 3.2 - dropped PVR 58 Discussed possible use of finasteride We will continue to check PSAs q.6 months Previously high in 2019 with prostatic inflammation Elevated PSA Discussed current results Prior biopsy 2019 negative, PSA at biopsy 9 PSA 03/12 4.4, 03/13 3.4, 08/14 3.5, 09/15 7.2 18% Keep doing green tea extract PFSH Medical History Elevated PSA Benign prostatic hyperplasia with lower urinary tract symptoms Surgical History History of surgery Review of Systems Const Denies chills and Denies fever(s) Card Reports no additional complaints and Denies syncope Resp Denies cough GI Denies abdominal pain and Denies heartburn Reports as per HPI and Denies change in libido Neuro Denies syncope Psych Denies change in libido Endo Denies change in libido Physical Exam Const General: cooperative, healthy appearing, comfortable and no acute distress Orientation/consciousness: patient oriented x3 HEENT Face and sinus: Yes normal facial exam Mouth: moist mucous membranes Neck Neck: Yes normal visual inspection, Yes full ROM and Yes trachea midline Chest Chest palpation & inspection: normal inspection of the chest Resp Effort & Inspection: normal respiratory effort, able to speak in complete sentences and no respiratory distress GI Inspection: Yes normal to inspection Back/Spine/Pelvis Cervical Spine: normal cervical lordosis Thoracic/Lumbar Spine: thoracic and lumbar spine normal to inspection Skin General skin exam: no rashes or lesions noted Neuro General: patient oriented x3, gait normal, tone normal and moves all extremities Extrem General: Yes normal to inspection and Yes capillary refill normal Office Procedures Post Void Residual Post Residual Void Post Void Residual (PVR): 58 [id number]-Egct Void Residual by ultrasound Assessment & Plan Assessment & Plan (1) Benign prostatic hyperplasia with lower urinary tract symptoms: Code(s): N40.1 - Benign prostatic hyperplasia with lower urinary tract symptoms Qualifiers: Lower urinary tract symptom detail: incomplete bladder emptying Qualified Code(s): N40.1 - Benign prostatic hyperplasia with lower urinary tract symptoms; R39.14 - Feeling of incomplete bladder emptying (2) Elevated PSA: Code(s): R97.20 - Elevated prostate specific antigen [PSA] Plan Six-month follow-up Orders: Orders AMB Post Void Residual by ultrasound Today N40.1 - Benign prostatic hyperplasia with lower urinary tract symptoms, R39.14 - Feeling of incomplete bladder emptying PSA,Total (Free>4and<10) 6 Months R97.20 - Elevated prostate specific antigen [PSA] Patient Instructions: Imaging studies, laboratory and physical exam results were discussed and reviewed in detail. No major barriers to patient understanding were identified. An opportunity to ask questions regarding the treatment plan was provided. All questions were answered. The patient expressed understanding and agreement with the above treatment plan. The patient is aware they should contact our office by phone for worsening of their current condition or the appearance of new urologic symptoms. Compliance is encouraged with any medications and followup testing that is ordered. It is a privilege to participate in the urologic care of your patient. If you have any questions or concerns regarding treatment for the above conditions, or other urologic issues, please do not hesitate to contact me. The office telephone contact is [phone]. This note is constructed using voice recognition software. While every effort has been made to ensure accuracy lockstitch tunnel elastic operator errors may have been included. Yours sincerely, Dr Bentley Torres MD, [facility] - Urology Providers of Expert, Compassionate Care for the Genitourinary System Coding Level of Care Code Est Pt Level 3 (81445) Diagnoses Benign prostatic hyperplasia with incomplete bladder emptying N40.1; R39.14 Lower urinary tract symptom detail: incomplete bladder emptying Elevated PSA R97.20 CPT Codes Post Residual Void - PVR CPT Code: 36230-Zaai Void Residual by ultrasound ([id number])
== END 2023-11-04 10:41 | disposition home or self-care (01) ==
PROVIDERS: PCP Internal Medicine; Visit Provider Urology
DX: N40.1 Benign prostatic hyperplasia with lower urinary tract symptoms (principal); R39.14 Feeling of incomplete bladder emptying; R97.20 Elevated prostate specific antigen [PSA]
CPT/HCPCS: 99213

== ENCOUNTER → 2023-11-04 09:41 | Outpatient (BNVA) | payer MEDICARE, OTHER, SELFPAY | PROVIDERS: PCP Internal Medicine; Visit Provider Urology | DX: N40.1 Benign prostatic hyperplasia with lower urinary tract symptoms (principal); R39.14 Feeling of incomplete bladder emptying; R97.20 Elevated prostate specific antigen [PSA] | CPT/HCPCS: 51798; 99212 ==

== ENCOUNTER 2024-02-13 08:48 | Outpatient (REF) | payer MEDICARE, OTHER, SELFPAY ==
[2024-02-13 10:24] LABS: MANUAL DIFF FLAG NO
[2024-02-13 10:33] LABS: Basophils Absolute Auto 0.1 X10*3/uL (0.0-0.2); Basophils Percent Auto 0.9 % (0-2); Eosinophils Absolute Auto 0.2 X10*3/uL (0.0-0.4); Eosinophils Percent Auto 2.8 % (0-4); Hemoglobin 15.1 g/dl (14.0-18.0); Imm Gran Abs Auto 0.03 X10*3/uL (0.00-0.03); Imm Gran Pct Auto 0.6 % (0.0-0.4); Lymphocytes Absolute Auto 1.9 X10*3/uL (1.2-4.9); Lymphocytes Percent Auto 35.6 % (20-40); Mean Corpuscular HGB Conc 34.3 g/dl (31.0-36.0); Mean Corpuscular Hemoglobin 31.9 pg (27.0-33.0); Mean Corpuscular Volume 92.8 fL (80.0-98.0); Mean Platelet Volume 9.4 fL (9.4-12.4); Monocytes Absolute Auto 0.6 X10*3/uL (0.1-1.2); Monocytes Percent Auto 10.3 % (2-11); Neutrophils Absolute Auto 2.7 x10*3/uL (2.0-8.3); Neutrophils Percent Auto 49.8 % (45-73); Platelet Count 220 X10*3/uL (160-400); Red Blood Count 4.74 X10*6/uL (4.60-5.80); White Blood Count 5.3 X10*3/uL (4.8-10.8)
[2024-02-13 10:58] LABS: Alanine Aminotransferase 13 U/L (0-40); Albumin Level 4.2 g/dL (3.5-5.0); Alkaline Phosphatase 40 U/L (39-117); Anion Gap 10 (12-20); Aspartate Amino Transferase 18 U/L (5-37); Bilirubin Total 0.6 mg/dL (0.0-1.0); Blood Urea Nitrogen 9 mg/dL (9-16); Calcium 9.4 mg/dL (8.4-10.2); Carbon Dioxide 27 mmol/L (22-29); Chloride 110 mmol/L (96-108); Cholesterol 207 mg/dL (<200); Estimated Glomerular Filt Rate > 60; Glucose Fasting 93 mg/dL (60-99); HDL Cholesterol 60 mg/dL (>40); LDL Cholesterol Calculated 125 mg/dL (<100); Potassium 3.9 mmol/L (3.3-5.1); Sodium 143 mmol/L (135-145); Total Protein 6.6 g/dL (6.5-8.0); Triglycerides 112 mg/dL (<150)
== END 2024-02-13 08:49 | disposition home or self-care (01) ==
LOC: HO.HMGCLDS 08:48
PROVIDERS: PCP Internal Medicine; Visit Provider Internal Medicine
DX: R07.9 Chest pain, unspecified (principal); N40.0 Benign prostatic hyperplasia without lower urinary tract symptoms
CPT/HCPCS: 36415; 80053; 80061; 85025

== ENCOUNTER → 2024-02-15 07:47 | Outpatient (REF) | payer MEDICARE, OTHER, SELFPAY ==
--- NOTE | 2024-02-15 07:51 | CA_ITS ---
Acquisition Time: 2024-02-15 08:13:27 Total Exercise Time: 00:07:31 Test Indications: CHEST PAIN Medications: NONE Protocol: PARAG Max HR: 142 BPM 96% of Pred: 147 BPM Max BP: 134/082 mmHG Max Work Load: 9.3 METS PT EXERCISED ON STD PARAG PROTOCOL FOR 730 INTO STAGE 3. MAX HR 141-95%MAX. NO CP OR SOB. NO EKG CHANGES. ONE ISOLATED COUPLET. CLINICALLY AND ELEC NEG TEST. Referred By: Darryl Swift Overread By: YADY SWIFT MD
== END ==
LOC: HO.CARD 07:47
PROVIDERS: PCP Internal Medicine; Visit Provider Internal Medicine
DX: R07.9 Chest pain, unspecified (principal)
CPT/HCPCS: 93017

== ENCOUNTER 2024-03-17 10:20 | Observation (INO) | payer MEDICARE, OTHER, SELFPAY ==
[2024-03-17] VITALS (9 sets, daily range): BP systolic 112–131; BP diastolic 64–75; PULSE 58–85; RESP 14–18; TEMP 36.6–37; O2SAT 96–98; BMI 23.4
--- NOTE | ~2024-03-17 | CT_ITS ---
EXAMINATION: CT HEAD WITHOUT CONTRAST CLINICAL INFORMATION: Syncope hit head COMPARISON: None TECHNIQUE: Contiguous axial imaging was performed from the skull base to vertex without intravenous administration of contrast. This CT examination was performed using dose optimization techniques as appropriate, variously including the following: *Automated exposure control *Adjustment of mA and/or kV according to patient size (this includes techniques or standardized protocols for targeted exams where dose is matched to indication/reason for exam; i.e. extremities or head) *Use of iterative reconstruction technique DLP: 756.56 mGy-cm FINDINGS: There is no evidence of acute intracranial hemorrhage or territorial infarction. Chronic white matter small vessel ischemic changes. No abnormal mass effect or midline shift is seen. [place]a to white matter differentiation is well preserved. No extra-axial fluid collections are identified. The ventricles are normal in size. There is no abnormal attenuation within the brain parenchyma. The osseous structures and soft tissues are normal. The mastoid air cells and visualized portions of the paranasal sinuses are well aerated. CT/CT cervical spine wo IV con IMPRESSION: 1. No acute intracranial pathology. 2. Chronic white matter small vessel ischemic changes. EXAMINATION: Noncontrast CT scan of the cervical spine. INDICATION: Hit head COMPARISON: None. TECHNIQUE: Helical, multidetector axial images were obtained from the occiput to the upper thorax. Coronal and sagittal reformats of the cervical spine were provided for interpretation. DLP: 1077 mGy-cm FINDINGS: No acute fractures or dislocations of the cervical spine are seen. Multilevel degenerative changes. Anatomic alignment and positioning of the vertebral bodies and posterior elements is noted. The atlantoaxial joint and craniovertebral articulations are normal without evidence of subluxation. There is no prevertebral soft tissue swelling. The thyroid gland and visualized portions of the lung apices and mediastinum are unremarkable. IMPRESSION: 1. No acute visible fracture or dislocation. 2. Multilevel degenerative changes.
--- NOTE | ~2024-03-17 | XR_ITS ---
EXAMINATION: XR chest 2V CLINICAL INFORMATION: Reason for Exam SYNCOPE COMPARISON: No prior chest x-ray available in our system for comparison at the time of this dictation. TECHNIQUE: XR chest 2V, 2 Views Lungs and Carleen: Both lungs are clear. Pleura: Normal. Costophrenic angles are sharp. No pneumothorax. Heart: The heart is normal in size. Mediastinum: The mediastinum is within normal limits.. Bones: Skeletal structures included are normal for patient's age. XR/XR chest 2V IMPRESSION: No radiographic evidence of acute cardiopulmonary disease.
--- NOTE | ~2024-03-17 | CT_ITS ---
EXAMINATION: CT ANGIOGRAM OF THE CHEST WITH AND WITHOUT CONTRAST (CT PULMONARY ANGIOGRAM FOR PE) CLINICAL INFORMATION: Reason for Exam syncope, + d dimer, recent flight COMPARISON: None available. TECHNIQUE: Prior to contrast administration, noncontrast localization images were obtained. Subsequently, multidetector volumetric imaging was performed from the thoracic inlet to below the diaphragms following the administration of 65 mL Omnipaque 350 intravenous contrast. No contrast reaction reported Sagittal, coronal, and MIP oblique sagittal reformatted images were obtained on the CT workstation, uploaded to PACS, and reviewed. This CT examination was performed using dose optimization techniques as appropriate, variously including the following: *Automated exposure control *Adjustment of mA and/or kV according to patient size (this includes techniques or standardized protocols for targeted exams where dose is matched to indication/reason for exam; i.e. extremities or head) *Use of iterative reconstruction technique Total exam dose-length product 259 mGy-cm FINDINGS: QUALITY OF STUDY/CONTRAST BOLUS: Satisfactory. PULMONARY ARTERIES: No pulmonary emboli. THORACIC AORTA: No aneurysm. LUNG: No focal consolidation, nodules or masses. PLEURA: No pleural effusion or pneumothorax. MEDIASTINUM: Normal heart size. No pericardial effusion. No hilar or mediastinal lymphadenopathy. No evidence of septal bowing or right heart strain. CORONARY ARTERY CALCIFICATION: Moderate CHEST WALL/AXILLA: Bilateral gynecomastia OSSEOUS STRUCTURES: Nondisplaced fracture of the left fifth rib posteriorly. UPPER ABDOMEN: Unremarkable. No reflux of contrast into the hepatic veins to suggest elevated right heart pressures. CT/CT angio chest PE protocol IMPRESSION: 1. No acute pulmonary embolus. 2. Nondisplaced fracture of the left fifth rib posteriorly. VTE: negative
--- NOTE | ~2024-03-17 | US_ITS ---
EXAMINATION: US VENOUS ULTRASOUND WITH DOPPLER LOWER EXTREMITY, BILATERAL CLINICAL INFORMATION: Positive d-dimer, syncope. Recent flight COMPARISON: None available. TECHNIQUE: Ultrasound of the deep veins is performed from the hip to the calf with compression sonography and color and pulse Doppler assessment. Spectral analysis with color-flow imaging is performed. FINDINGS: RIGHT: There is normal venous compression and respiratory variation and augmented flow. The visualized common femoral vein, superficial femoral vein, profunda femoral vein, popliteal vein, and the trifurcation region shows no evidence of deep venous thrombosis. There is no significant popliteal fossa cyst. LEFT: There is normal venous compression and respiratory variation and augmented flow. The visualized common femoral vein, superficial femoral vein, profunda femoral vein, popliteal vein, and the trifurcation region shows no evidence of deep venous thrombosis. There is no significant popliteal fossa cyst. If the patient's symptoms persist, followup ultrasound in 5 days 7 days might be of value to exclude proximal propagation from a non-visualized calf vein. US/US venous duplex LE BI IMPRESSION: No DVT demonstrated either lower extremity.
--- NOTE | 2024-03-17 10:39 | ECG_ITS ---
Test Reason : SYNCOPE Blood Pressure : / mmHG Vent. Rate : 057 BPM Atrial Rate : 057 BPM P-R Int : 232 ms QRS Dur : 102 ms QT Int : 412 ms P-R-T Axes : 062 -12 042 degrees QTc Int : 401 ms Sinus bradycardia with 1st degree A-V block Otherwise normal ECG When compared with ECG of 28-JAN-2010 15:11, Nonspecific T wave abnormality no longer evident in Inferior leads Referred By: Generic ED Physician Electronically Signed By:Rafael Richardson
[2024-03-17 11:04] LABS: Basophils Percent Auto 0.5 % (0-2); Eosinophils Absolute Auto 0.1 X10*3/uL (0.0-0.4); Eosinophils Percent Auto 0.9 % (0-4); Hematocrit 43.1 % (42.0-52.0); Hemoglobin 15.2 g/dl (14.0-18.0); Imm Gran Abs Auto 0.07 X10*3/uL (0.00-0.03); Imm Gran Pct Auto 0.9 % (0.0-0.4); Lymphocytes Absolute Auto 1.7 X10*3/uL (1.2-4.9); Lymphocytes Percent Auto 21.6 % (20-40); MANUAL DIFF FLAG NO; Mean Corpuscular HGB Conc 35.3 g/dl (31.0-36.0); Mean Corpuscular Hemoglobin 32.3 pg (27.0-33.0); Mean Corpuscular Volume 91.7 fL (80.0-98.0); Mean Platelet Volume 8.9 fL (9.4-12.4); Monocytes Absolute Auto 0.5 X10*3/uL (0.1-1.2); Monocytes Percent Auto 6.5 % (2-11); Neutrophils Absolute Auto 5.5 x10*3/uL (2.0-8.3); Neutrophils Percent Auto 69.6 % (45-73); Platelet Count 179 X10*3/uL (160-400); Red Cell Distribution Width 12.6 % (11.0-16.0); White Blood Count 7.8 X10*3/uL (4.8-10.8)
[2024-03-17 11:13] LABS: Appearance Urine Clear; Color Urine Yellow; Glucose Urine UA Negative (Negative); Leukocyte Esterase Urine Negative (Negative); Nitrite Urine Negative (Negative); PH 5.5 (5.0-9.0); Urine Blood Negative (Negative); Urine Ketones Trace mg/dL (Negative); Urine Protein Trace mg/dL (Neg-Trace)
[2024-03-17 11:32] LABS: Alanine Aminotransferase 15 U/L (0-40); Albumin Level 4.1 g/dL (3.5-5.0); Alkaline Phosphatase 41 U/L (39-117); Anion Gap 13 (12-20); Aspartate Amino Transferase 20 U/L (5-37); Bilirubin Total 0.6 mg/dL (0.0-1.0); Blood Urea Nitrogen 11 mg/dL (9-16); Calcium 9.1 mg/dL (8.4-10.2); Carbon Dioxide 26 mmol/L (22-29); Chloride 109 mmol/L (96-108); Creatinine Clr Calc Pharmacy 74.2; Estimated Glomerular Filt Rate > 60; Glucose Random 101 mg/dL (60-115); Potassium 4.1 mmol/L (3.3-5.1); Sodium 144 mmol/L (135-145); Total Protein 6.3 g/dL (6.5-8.0)
[2024-03-17 11:40] LABS: Troponin-I High Sensitivity < 2.7 ng/L (<3.5-35.0)
--- NOTE | 2024-03-17 12:11 | ED_ITS ---
HPI - Syncope General Chief Complaint: Syncope Stated Complaint: passed out inj back on radiator Time Seen by Provider: 03/17/24 11:35 Source: patient and family Mode of arrival: ambulatory Limitations: no limitations History of Present Illness ED Provider: Neida Scott APRN HPI narrative: This is a 73-year-old male who has a history of BPH who is otherwise healthy who presents to the ER with complaints of syncopal episode. Patient reports that he was brushing his hair when the next thing he remembers is he was waking up on the ground. Per his she was in the other room when she heard a loud Bang and found him lying on the ground unresponsive. She tells me that she gently shook the patient and he aroused 1-2 minutes later. There was no shaking activity. There was no confusion noted after. There was no incontinence of urine or stool. The patient denies any presyncopal symptoms. He has been feeling well lately with no complaints. Of note he did have a stress test on February 14 which was negative. Related Data Previous Rx's ?Medication ?Instructions ?Recorded doxycycline hyclate 100 mg tablet 100 mg PO BID 7 days #14 tabs 12/25/21 ondansetron 4 mg disintegrating 4 mg PO ONCE PRN nausea and 12/25/21 tablet vomiting #10 tabs Allergies Allergy/AdvReac Type Severity Reaction Status Date / Time No Known Allergies Allergy Verified 03/17/24 10:37 Review of Systems 2 Review of Systems: Yes all other systems are reviewed and are negative Constitutional: Constitutional: Reports no additional constitutional complaints, Denies body ache(s), Denies chills, Denies fever(s), Denies headache(s) and Denies weakness Eyes: Eyes: Reports no additional eye complaints and Denies change in vision ENT: Reports system reviewed and no additional complaints, except as documented, Denies dizziness, Denies headache(s), Denies nasal congestion, Denies nasal discharge and Denies neck pain Cardiovascular: Cardiovascular: Reports no additional cardiovascular complaints, Denies chest pain, Denies leg edema and Denies dyspnea Respiratory: Respiratory: Reports no additional respiratory complaints, Denies cough and Denies dyspnea Gastrointestinal: Gastrointestinal: Reports no additional gastrointestinal complaints, Denies abdominal pain, Denies diarrhea, Denies nausea and Denies vomiting Genitourinary: Genitourinary: Denies urinary incontinence Musculoskeletal: Musculoskeletal: Reports no additional musculoskeletal complaints, Denies back pain, Denies arthralgias, Denies joint swelling, Denies neck pain, Denies numbness and Denies tingling Integumentary/Breasts: Skin/Breast: Reports system reviewed and no additional complaints, except as docu and Denies rash Neurologic: Reports system reviewed and no additional complaints, except as documented, Denies Abnormal speech present, Denies dizziness, Denies headache(s), Denies numbness, Denies tingling and Denies weakness PMFSH Past Medical History Attestation statement: The following information was validated with the patient. Source: old records reviewed and nursing notes reviewed Medical History Elevated PSA Benign prostatic hyperplasia with lower urinary tract symptoms Surgical History History of surgery Social History Social History Advance Directives: No Advance Directives Information Provided: No Physical Exam 2 Vital Signs: Vital Signs: Last Vital Signs Temp 98.1 F 03/17/24 14:48 Pulse 75 03/17/24 14:48 Resp 15 03/17/24 14:48 BP 125/73 03/17/24 14:48 Pulse Ox 97 03/17/24 14:48 O2 Del Method Room Air 03/17/24 14:48 BMI result Body Mass Index 23.4 Const: General: cooperative, healthy appearing, comfortable and no acute distress Orientation/consciousness: patient oriented x3 Limitations: no limitations HEENT: Head: Yes normal to inspection, No Padilla's sign and No raccoon eyes Ears: hearing grossly normal bilaterally and TM's normal bilaterally General nose exam: Normal external nose present Face and sinus: Yes normal facial exam Mouth: Normal oral and palatal mucosa present Throat: Yes posterior oropharynx normal Eyes: General: appearance normal, both eyes and all related structures P upils: Equal, round and reactive pupils present Neck: Neck: Yes normal visual inspection Chest: Chest palpation & inspection: normal inspection of the chest Resp: Effort & Inspection: normal respiratory effort Auscultation: clear to auscultation bilaterally Cardio: Rate: regular rate Rhythm: regular rhythm Peripheral pulses: P eripheral pulses 2+ throughout GI: Inspection: Yes normal to inspection Palpation (GI): Soft to palpation and nontender Auscultation: normal bowel sounds Back/Spine/Pelvis: Other: Mild tenderness the left posterior scapula with no bony abnormalities noted. Thoracic/Lumbar Spine: thoracic and lumbar spine normal to inspection Skin: General skin exam: no rashes or lesions noted Neuro: General: patient oriented x3, moves all extremities, no focal motor deficits and normal sensation to monofilament Cranial nerves: Yes CN's II-XII intact bilaterally, Yes Equal, round and reactive pupils present, Yes Bilaterally intact EOM present, Yes Nystagmus not present, Yes Normal facial strength present and Yes Midline tongue present Cognition (Neuro): normal cognition Speech: No Abnormal speech present Gait exam (Neuro): Normal gait present Motor exam (neuro): 5/5 motor strength present throughout S ensory Exam: Normal double simultaneous stimulation for sensation Extrem: General: Yes normal to inspection, Yes no pedal edema and Yes no calf tenderness Course Course Course Narrative: [id number] is elevated. Patient reports 3 days ago he flew home from [place] on a 6 hour flight. Will obtain CTA to rule out PE and obtain bilateral venous ultrasound to rule out DVT Reevaluation(s) Reevaluation #1: 1630-ultrasound is negative for DVT. CTA is negative for PE but does show single rib fracture. Troponin x2 are flat. EKG is nonischemic. I spoke to Cardiology who recommended monitoring on tele Medications Administered Discontinued Medications Generic Name Dose Route Start Last Admin Trade Name Freq PRN Reason Stop Dose Admin Iohexol 100 ml 03/17/24 13:41 03/17/24 13:41 Iohexol 350 Mg/Ml 100 Ml Infus..Btl IV 03/17/24 13:42 65 ml ONCE ONE Administration Medical Decision Making Medical Decision Making MDM Narrative: This is a 73-year-old male who has a history of BPH who is otherwise healthy who presents to the ER with complaints of syncopal episode.? Patient reports that he was brushing his hair when the next thing he remembers is he was waking up on the ground.? Per his she was in the other room when she heard a loud Bang and found him lying on the ground unresponsive.? She tells me that she gently shook the patient and he aroused 1-2 minutes later.? There was no shaking activity.? There was no confusion noted after.? There was no incontinence of urine or stool.? The patient denies any presyncopal symptoms.? He has been feeling well lately with no complaints.? Of note he did have a stress test on February 14 which was negative On arrival patient is alert and oriented. Normal neuro exam no focal deficits. Vitals are stable. He has some mild left upper tenderness to the posterior scapula but denies any other complaints. Will obtain labs, EKG, chest x-ray, CT head, orthostatic vital signs Differential Diagnosis Differential Diagnoses: The differential diagnosis associated with the presentation includes Orthostatic hypotension, subarachnoid hemorrhage, PE, ACS, arrhythmia, electrolyte abnormality Admission/Observation Consideration of admission/observation: Escalation of care including admission/observation considered Consult Healthcare Provider Management of the patient was discussed with: Hospitalist and Certified Orthotist/Pedorthist Dylan 1630 monitor on tele Spoke to Dr Montoya who accepted admission Lab Data MDM Lab Attestation statement: I reviewed the patient's lab results. 03/17/24 10:59 03/17/24 10:59 Labs: Lab Results 03/17/24 03/17/24 03/17/24 Range/Units 10:59 11:05 12:29 WBC 7.8 (4.8-10.8) X10*3/uL RBC 4.70 (4.60-5.80) X10*6/uL Hgb 15.2 (14.0-18.0) g/dl Hct 43.1 (42.0-52.0) % MCV 91.7 (80.0-98.0) fL MCH 32.3 (27.0-33.0) pg MCHC 35.3 (31.0-36.0) g/dl RDW 12.6 (11.0-16.0) % Plt Count 179 (160-400) X10*3/uL MPV 8.9 L (9.4-12.4) fL Immature Gran % (Auto) 0.9 H (0.0-0.4) % Neut % (Auto) 69.6 (45-73) % Lymph % (Auto) 21.6 (20-40) % Trego % (Auto) 6.5 (2-11) % Eos % (Auto) 0.9 (0-4) % Baso % (Auto) 0.5 (0-2) % Lymph # (Auto) 1.7 (1.2-4.9) X10*3/uL Trego # (Auto) 0.5 (0.1-1.2) X10*3/uL Eos # (Auto) 0.1 (0.0-0.4) X10*3/uL Baso # (Auto) 0.0 (0.0-0.2) X10*3/uL Abs Immat Gran (auto) 0.07 H (0.00-0.03) X10*3/uL Absolute Neuts (auto) 5.5 (2.0-8.3) x10*3/uL Absolute Nucleated RBC 0.000 (0.0-0.012) X10*3/uL Nucleated RBC % (auto) 0.0 (0.0-0.2) /100WBC PT 12.1 (11.1-13.3) SEC INR 1.0 (0.9-1.1) D-Dimer High Sensitivty 1559 NG/ML Sodium 144 (135-145) mmol/L Potassium 4.1 (3.3-5.1) mmol/L Chloride 109 H (96-108) mmol/L Carbon Dioxide 26 (22-29) mmol/L Anion Gap 13 (12-20) BUN 11 (9-16) mg/dL Creatinine 0.80 (0.5-1.4) mg/dL Estim Creat Clear Calc 74.2 Estimated GFR > 60 Random Glucose 101 (60-115) mg/dL Lactic Acid 1.9 (0.5-2.0) mmol/L Calcium 9.1 (8.4-10.2) mg/dL Magnesium 2.0 (1.6-2.6) mg/dL Total Bilirubin 0.6 (0.0-1.0) mg/dL AST 20 (5-37) U/L ALT 15 (0-40) U/L Alkaline Phosphatase 41 (39-117) U/L Troponin I High Sens < 2.7 (<3.5-35.0) ng/L Total Protein 6.3 L (6.5-8.0) g/dL Albumin 4.1 (3.5-5.0) g/dL Urine Color Yellow Urine Appearance Clear Urine pH 5.5 (5.0-9.0) Ur Specific [place] 1.020 (1.005-1.025) Urine Protein Trace (Neg-Trace) mg/dL Urine Glucose (UA) Negative (Negative) mg/dL Urine Ketones Trace (Negative) mg/dL Urine Blood Negative (Negative) Urine Nitrite Negative (Negative) Ur Leukocyte Esterase Negative (Negative) 03/17/24 Range/Units 13:59 WBC (4.8-10.8) X10*3/uL RBC (4.60-5.80) X10*6/uL Hgb (14.0-18.0) g/dl Hct (42.0-52.0) % MCV (80.0-98.0) fL MCH (27.0-33.0) pg MCHC (31.0-36.0) g/dl RDW (11.0-16.0) % Plt Count (160-400) X10*3/uL MPV (9.4-12.4) fL Immature Gran % (Auto) (0.0-0.4) % Neut % (Auto) (45-73) % Lymph % (Auto) (20-40) % Trego % (Auto) (2-11) % Eos % (Auto) (0-4) % Baso % (Auto) (0-2) % Lymph # (Auto) (1.2-4.9) X10*3/uL Trego # (Auto) (0.1-1.2) X10*3/uL Eos # (Auto) (0.0-0.4) X10*3/uL Baso # (Auto) (0.0-0.2) X10*3/uL Abs Immat Gran (auto) (0.00-0.03) X10*3/uL Absolute Neuts (auto) (2.0-8.3) x10*3/uL Absolute Nucleated RBC (0.0-0.012) X10*3/uL Nucleated RBC % (auto) (0.0-0.2) /100WBC PT (11.1-13.3) SEC INR (0.9-1.1) D-Dimer High Sensitivty NG/ML Sodium (135-145) mmol/L Potassium (3.3-5.1) mmol/L Chloride (96-108) mmol/L Carbon Dioxide (22-29) mmol/L Anion Gap (12-20) BUN (9-16) mg/dL Creatinine (0.5-1.4) mg/dL Estim Creat Clear Calc Estimated GFR Random Glucose (60-115) mg/dL Lactic Acid (0.5-2.0) mmol/L Calcium (8.4-10.2) mg/dL Magnesium (1.6-2.6) mg/dL Total Bilirubin (0.0-1.0) mg/dL AST (5-37) U/L ALT (0-40) U/L Alkaline Phosphatase (39-117) U/L Troponin I High Sens < 2.7 (<3.5-35.0) ng/L Total Protein (6.5-8.0) g/dL Albumin (3.5-5.0) g/dL Urine Color Urine Appearance Urine pH (5.0-9.0) Ur Specific F[place] (1.005-1.025) Urine Protein (Neg-Trace) mg/dL Urine Glucose (UA) (Negative) mg/dL Urine Ketones (Negative) mg/dL Urine Blood (Negative) Urine Nitrite (Negative) Ur Leukocyte Esterase (Negative) Independent Interpretation I performed an independent interpretation of an: EKG, Plain X-Ray, Ultrasound and CT Scan Interpretation: I independently reviewed the EKG which shows sinus bradycardia with a first- degree AV block with a rate of 57, normal [place], normal QRS, normal QT I independently reviewed the x-ray, ultrasound and CT scan and agree with the radiology report Radiology Impression Discussion of test interpretation with radiology: I have reviewed the radiologist's reading. Radiologist Impression: Launch?Image [place] [address] XRay Report Signed Patient: Tristan Moon MR#: [id number] : 1950 Acct:[id number] Age/Sex: 73 / M ADM Date: 03/17/24 Loc: .ED Attending Dr: Ordering Physician: Essie Spears MD Date of Service: 03/17/24 Procedure(s): XR chest 2V Accession Number(s): [id number] cc: Essie Spears MD; Darryl Bone MD~ EXAMINATION: XR chest 2V CLINICAL INFORMATION: Reason for Exam SYNCOPE COMPARISON: No prior chest x-ray available in our system for comparison at the time of this dictation. TECHNIQUE: XR chest 2V, 2 Views Lungs and Carleen: Both lungs are clear. Pleura: Normal. Costophrenic angles are sharp. No pneumothorax. Heart: The heart is normal in size. Mediastinum: The mediastinum is within normal limits.. Bones: Skeletal structures included are normal for patient's age. XR/XR chest 2V IMPRESSION: No radiographic evidence of acute cardiopulmonary disease. [place] [address] Ultrasound Report Signed Patient: Tristan Moon MR#: [id number] : 1950 Acct:[id number] Age/Sex: 73 / M ADM Date: 03/17/24 Loc: .ED Attending Dr: Ordering Physician: Neida Aggarwal NP Date of Service: 03/17/24 Procedure(s): US venous duplex LE BI Accession Number(s): [id number] cc: Darryl Bone MD; Neida Aggarwal NP~ EXAMINATION: US VENOUS ULTRASOUND WITH DOPPLER LOWER EXTREMITY, BILATERAL CLINICAL INFORMATION: Positive d-dimer, syncope. Recent flight COMPARISON: None available. TECHNIQUE: Ultrasound of the deep veins is performed from the hip to the calf with compression sonography and color and pulse Doppler assessment. Spectral analysis with color-flow imaging is performed. FINDINGS: RIGHT: There is normal venous compression and respiratory variation and augmented flow. The visualized common femoral vein, superficial femoral vein, profunda femoral vein, popliteal vein, and the trifurcation region shows no evidence of deep venous thrombosis. There is no significant popliteal fossa cyst. LEFT: There is normal venous compression and respiratory variation and augmented flow. The visualized common femoral vein, superficial femoral vein, profunda femoral vein, popliteal vein, and the trifurcation region shows no evidence of deep venous thrombosis. There is no significant popliteal fossa cyst. If the patient's symptoms persist, followup ultrasound in 5 days 7 days might be of value to exclude proximal propagation from a non-visualized calf vein. US/US venous duplex LE BI IMPRESSION: No DVT demonstrated either lower extremity. [address] [address] [address] Scan Report Signed Patient: Tristan Moon MR#: [id number] : 1950 Acct:[id number] Age/Sex: 73 / M ADM Date: 03/17/24 Loc: .ED Attending Dr: Ordering Physician: Neida Aggarwal NP Date of Service: 03/17/24 Procedure(s): CT angio chest PE protocol Accession Number(s): [id number] cc: Darryl Bone MD; Neida Aggarwal NP~ EXAMINATION: CT ANGIOGRAM OF THE CHEST WITH AND WITHOUT CONTRAST (CT PULMONARY ANGIOGRAM FOR PE) CLINICAL INFORMATION: Reason for Exam syncope, + d dimer, recent flight COMPARISON: None available. TECHNIQUE: Prior to contrast administration, noncontrast localization images were obtained. Subsequently, multidetector volumetric imaging was performed from the thoracic inlet to below the diaphragms following the administration of 65 mL Omnipaque 350 intravenous contrast. No contrast reaction reported Sagittal, coronal, and MIP oblique sagittal reformatted images were obtained on the CT workstation, uploaded to PACS, and reviewed. This CT examination was performed using dose optimization techniques as appropriate, variously including the following: *Automated exposure control *Adjustment of mA and/or kV according to patient size (this includes techniques or standardized protocols for targeted exams where dose is matched to indication/reason for exam; i.e. extremities or head) *Use of iterative reconstruction technique Total exam dose-length product 259 mGy-cm FINDINGS: QUALITY OF STUDY/CONTRAST BOLUS: Satisfactory. PULMONARY ARTERIES: No pulmonary emboli. THORACIC AORTA: No aneurysm. LUNG: No focal consolidation, nodules or masses. PLEURA: No pleural effusion or pneumothorax. MEDIASTINUM: Normal heart size. No pericardial effusion. No hilar or mediastinal lymphadenopathy. No evidence of septal bowing or right heart strain. CORONARY ARTERY CALCIFICATION: Moderate CHEST WALL/AXILLA: Bilateral gynecomastia OSSEOUS STRUCTURES: Nondisplaced fracture of the left fifth rib posteriorly. UPPER ABDOMEN: Unremarkable. No reflux of contrast into the hepatic veins to suggest elevated right heart pressures. CT/CT angio chest PE protocol IMPRESSION: 1. No acute pulmonary embolus. 2. Nondisplaced fracture of the left fifth rib posteriorly. VTE: negative [place] [id number] [place] [address] CT Scan Report Signed Patient: Tristan Moon MR#: [id number] : 1950 Acct:[id number] Age/Sex: 73 / M ADM Date: 03/17/24 Loc: HO.ED Attending Dr: Ordering Physician: Neida Aggarwal NP Date of Service: 03/17/24 Procedure(s): CT head/brain wo IV con Accession Number(s): [id number] cc: Darryl Bone MD; Neida Aggarwal NP~ EXAMINATION: CT HEAD WITHOUT CONTRAST CLINICAL INFORMATION: Syncope hit head COMPARISON: None TECHNIQUE: Contiguous axial imaging was performed from the skull base to vertex without intravenous administration of contrast. This CT examination was performed using dose optimization techniques as appropriate, variously including the following: *Automated exposure control *Adjustment of mA and/or kV according to patient size (this includes techniques or standardized protocols for targeted exams where dose is matched to indication/reason for exam; i.e. extremities or head) *Use of iterative reconstruction technique DLP: 756.56 mGy-cm FINDINGS: There is no evidence of acute intracranial hemorrhage or territorial infarction. Chronic white matter small vessel ischemic changes. No abnormal mass effect or midline shift is seen. Verma to white matter differentiation is well preserved. No extra-axial fluid collections are identified. The ventricles are normal in size. There is no abnormal attenuation within the brain parenchyma. The osseous structures and soft tissues are normal. The mastoid air cells and visualized portions of the paranasal sinuses are well aerated. CT/CT head/brain wo IV con IMPRESSION: 1. No acute intracranial pathology. 2. Chronic white matter small vessel ischemic changes. EXAMINATION: Noncontrast CT scan of the cervical spine. INDICATION: Hit head COMPARISON: None. TECHNIQUE: Helical, multidetector axial images were obtained from the occiput to the upper thorax. Coronal and sagittal reformats of the cervical spine were provided for interpretation. DLP: 1077 mGy-cm FINDINGS: No acute fractures or dislocations of the cervical spine are seen. Multilevel degenerative changes. Anatomic alignment and positioning of the vertebral bodies and posterior elements is noted. The atlantoaxial joint and craniovertebral articulations are normal without evidence of subluxation. There is no prevertebral soft tissue swelling. The thyroid gland and visualized portions of the lung apices and mediastinum are unremarkable. IMPRESSION: 1. No acute visible fracture or dislocation. 2. Multilevel degenerative changes. Independent Historian Clinical information obtained from an independent historian. History obtained from or confirmed by: Spouse Discharge Plan Discharge Clinical Impression: Syncope, Closed rib fracture Patient Disposition: Admitted As Inpatient Additional Instructions: Please use the incentive spirometer every 2 hours while awake You may take Motrin or Tylenol for pain as needed Your lab work, EKG, x-ray, CT and ultrasound are all normal. You may need to have an outpatient Holter monitor done and therefore you should follow-up with your primary care doctor. Please return for any worsening symptoms. Print Language: Armenian
[2024-03-17 12:46] LABS: Prothrombin Time 12.1 SEC (11.1-13.3)
[2024-03-17 12:48] LABS: D Dimer High Sensitivity 1559 NG/ML
[2024-03-17 12:50] LABS: Lactic Acid 1.9 mmol/L (0.5-2.0)
[2024-03-17] MEDS: iohexoL 350 MG/ML 100 ML INFUS..BTL IV (13:41)
[2024-03-17 14:25] LABS: Troponin-I High Sensitivity < 2.7 ng/L (<3.5-35.0)
--- NOTE | 2024-03-17 16:42 | P.HPHOSP_ITS ---
History of Present Illness Date of Service: 03/17/24 Attending physician on admission: Jeane Montoya Chief Complaint: Syncopal episode Pt is a 73-year-old male with PMH significant for BPH who presents to the ED for evaluation after syncopal episode at home. Patient reports he woke this morning in his normal state of health. Went to the bathroom, had a normal bowel movement without straining, and then stood up to brush his hair when he suddenly syncopized. Patient's in the next bathroom heard a loud bang and came in to find patient unresponsive on the floor. Gently shook him until he awakened 1-2 minutes later. Did not witness any seizure-like activity or postictal state. Patient himself denies any prodromal symptoms: No lightheadedness, dizziness, headache, aura. Does endorse upper left back and left sided anterior chest wall pain, worse with movement. Patient denies any recent illness or sick contacts. Does report 3 days prior flew home from [place] on a 6 hour flight No nausea, vomiting, abdominal pain. Denies chest pressure or palpitations. No fever, chills. Denies shortness of breath. Of note, patient underwent stress test on 02/15/2024 which was negative. Patient initially could not remember why he had the stress test, though review of records indicate it was for chest pain. Patient is unable to provide any significant or detailed history regarding this chest pain, though says he probably mentioned experiencing intermittent chest pain to his PCP who ordered the stress test. Reports being quite active with walking 3-5 miles daily. In the ED pt was hemodynamically stable with vital signs WNL. Orthostatics negative. Labs were grossly unremarkable. No leukocytosis. Stable H& H. No electrolyte abnormalities. Renal and hepatic function WNL. Serial troponins negative. Lactic acid WNL. UA negative for UTI. CXR showed no radioactive evidence of acute cardiopulmonary disease. Head CT negative for acute intracranial pathology, though did show chronic white matter small-vessel ischemic changes. CT of cervical spine negative for acute visible fracture or dislocation, but with multilevel degenerative changes. Chest CTA found no acute pulmonary embolus, though showed nondisplaced fracture of the left 5th rib posteriorly. Venous duplex of lower extremities bilaterally negative for DVT. EKG demonstrated sinus bradycardia of 57 with first-degree AV block, but no evidence of significant ST elevations or depressions. Pt will be admitted to the hospital under observation for further monitoring and evaluation of syncopal episode. Review of Systems 2 Review of Systems: Syncope Left-sided upper back and anterior chest wall pain, worse with movement Denies lightheadedness or dizziness No nausea, vomiting, fever, chills, abdominal pain No diarrhea Denies chest pain/pressure, palpitations No shortness of breath or pleuritic chest pain PMFSH Medical History Elevated PSA Benign prostatic hyperplasia with lower urinary tract symptoms Surgical History History of surgery Social History Advance Directives: No Advance Directives Information Provided: No Meds Allergies Allergy/AdvReac Type Severity Reaction Status Date / Time No Known Allergies Allergy Verified 03/17/24 10:37 Home Medications ?Medication ?Instructions ?Recorded ?Confirmed ?Last Taken ?Type cranberry 400 mg capsule 400 mg PO Q OTHER DAY 03/17/24 03/17/24 Unknown History green tea extract 500 mg capsule 500 mg PO Q OTHER DAY 03/17/24 03/17/24 Unknown History Physical Exam 2 Vital Signs and Narrative: Vital Signs: Last Vital Signs Temp 98.1 F 03/17/24 14:48 Pulse 75 03/17/24 14:48 Resp 15 03/17/24 14:48 BP 125/73 03/17/24 14:48 Pulse Ox 97 03/17/24 14:48 O2 Del Method Room Air 03/17/24 14:48 BMI result Body Mass Index 23.4 Constitutional: Alert, in no acute distress. Mental Status: Oriented to person, place and time. Eyes: Pupils are equal, round, and reactive to light. Ear, Nose, and Throat: Oropharynx clear, mucous membranes moist. Ears and nose without deformities. Trachea midline. Respiratory: Clear to auscultation bilaterally. No wheezing, rales, or rhonchi. Cardiovascular: S1, S2 regular. No murmurs, rubs, or gallops. Chest: Left-sided anterior chest wall tenderness Gastrointestinal: Abdomen soft, non-tender, non-distended. Normal bowel sounds. Neurologic: Cranial nerves II-XII are grossly intact bilaterally. No focal neurological deficits. Moves all extremities spontaneously. Skin: Warm, dry. Extremities: No edema. Psychiatric: Normal mood and affect. Results Labs 03/17/24 10:59 03/17/24 10:59 Labs: Laboratory Results - last 24 hr 03/17/24 03/17/24 03/17/24 10:59 11:05 12:29 MCV 91.7 MCH 32.3 MCHC 35.3 RDW 12.6 Plt Count 179 MPV 8.9 L Immature Gran % (Auto) 0.9 H Neut % (Auto) 69.6 Lymph % (Auto) 21.6 [place] % (Auto) 6.5 Eos % (Auto) 0.9 Baso % (Auto) 0.5 Lymph # (Auto) 1.7 [place] # (Auto) 0.5 Eos # (Auto) 0.1 Baso # (Auto) 0.0 Abs Immat Gran (auto) 0.07 H Absolute Neuts (auto) 5.5 Absolute Nucleated RBC 0.000 Nucleated RBC % (auto) 0.0 PT 12.1 INR 1.0 D-Dimer High Sensitivty 1559 Anion Gap 13 Estim Creat Clear Calc 74.2 Estimated GFR > 60 Random Glucose 101 Lactic Acid 1.9 Calcium 9.1 Magnesium 2.0 Total Bilirubin 0.6 AST 20 ALT 15 Alkaline Phosphatase 41 Troponin I High Sens < 2.7 Total Protein 6.3 L Albumin 4.1 Urine Color Yellow Urine Appearance Clear Urine pH 5.5 Ur Specific [place] 1.020 Urine Protein Trace Urine Glucose (UA) Negative Urine Ketones Trace Urine Blood Negative Urine Nitrite Negative Ur Leukocyte Esterase Negative 03/17/24 13:59 MCV MCH MCHC RDW Plt Count MPV Immature Gran % (Auto) Neut % (Auto) Lymph % (Auto) [place] % (Auto) Eos % (Auto) Baso % (Auto) Lymph # (Auto) [place] # (Auto) Eos # (Auto) Baso # (Auto) Abs Immat Gran (auto) Absolute Neuts (auto) Absolute Nucleated RBC Nucleated RBC % (auto) PT INR D-Dimer High Sensitivty Anion Gap Estim Creat Clear Calc Estimated GFR Random Glucose Lactic Acid Calcium Magnesium Total Bilirubin AST ALT Alkaline Phosphatase Troponin I High Sens < 2.7 Total Protein Albumin Urine Color Urine Appearance Urine pH Ur Specific [place] Urine Protein Urine Glucose (UA) Urine Ketones Urine Blood Urine Nitrite Ur Leukocyte Esterase Imaging Radiologist's Impressions: Impressions Chest X-Ray 03/17/24 11:40 IMPRESSION: No radiographic evidence of acute cardiopulmonary disease. Cervical Spine CT 03/17/24 12:42 IMPRESSION: 1. No acute intracranial pathology. 2. Chronic white matter small vessel ischemic changes. EXAMINATION: Noncontrast CT scan of the cervical spine. INDICATION: Hit head COMPARISON: None. TECHNIQUE: Helical, multidetector axial images were obtained from the occiput to the upper thorax. Coronal and sagittal reformats of the cervical spine were provided for interpretation. DLP: 1077 mGy-cm FINDINGS: No acute fractures or dislocations of the cervical spine are seen. Multilevel degenerative changes. Anatomic alignment and positioning of the vertebral bodies and posterior elements is noted. The atlantoaxial joint and craniovertebral articulations are normal without evidence of subluxation. There is no prevertebral soft tissue swelling. The thyroid gland and visualized portions of the lung apices and mediastinum are unremarkable. IMPRESSION: 1. No acute visible fracture or dislocation. 2. Multilevel degenerative changes. Head CT 03/17/24 12:42 IMPRESSION: 1. No acute intracranial pathology. 2. Chronic white matter small vessel ischemic changes. EXAMINATION: Noncontrast CT scan of the cervical spine. INDICATION: Hit head COMPARISON: None. TECHNIQUE: Helical, multidetector axial images were obtained from the occiput to the upper thorax. Coronal and sagittal reformats of the cervical spine were provided for interpretation. DLP: 1077 mGy-cm FINDINGS: No acute fractures or dislocations of the cervical spine are seen. Multilevel degenerative changes. Anatomic alignment and positioning of the vertebral bodies and posterior elements is noted. The atlantoaxial joint and craniovertebral articulations are normal without evidence of subluxation. There is no prevertebral soft tissue swelling. The thyroid gland and visualized portions of the lung apices and mediastinum are unremarkable. IMPRESSION: 1. No acute visible fracture or dislocation. 2. Multilevel degenerative changes. Chest CTA 03/17/24 13:43 IMPRESSION: 1. No acute pulmonary embolus. 2. Nondisplaced fracture of the left fifth rib posteriorly. VTE: negative Venous Duplex 03/17/24 14:30 IMPRESSION: No DVT demonstrated either lower extremity. Assessment and Plan (1) Closed rib fracture: Status: Acute (2) Syncope: Status: Acute Plan Pt is a 73-year-old male with PMH significant for BPH who presents to the ED for evaluation after syncopal episode at home. Patient reports he woke this morning in his normal state of health. Went to the bathroom, had a normal bowel movement without straining, and then stood up to brush his hair when he suddenly syncopized. Pt will be admitted to the hospital under observation for further monitoring and evaluation of syncopal episode. Syncope Patient experienced syncopal episode with LOC 1-2 minutes Etiology unclear: Differential includes vasovagal, cardiac, neurogenic Orthostatics negative, random glucose 101, no witnessed seizure-like activity or postictal state, patient denies lightheadedness or dizziness Echocardiogram Cardiology consult Monitor on telemetry Echocardiogram Cardiology consult Monitor on telemetry Rib fracture CTA of chest found nondisplaced fracture of 5th rib posteriorly Secondary to syncopal episode Lidocaine patch, oxycodone for pain management BPH Only on dietary supplements, not prescription medicine Full Code Attending:?Dr. Montoya DVT Prophylaxis: Lovenox Pt will be admitted to the hospital under observation for monitoring and further workup for syncopal episode of unclear etiology. Patient will require hospitalization for 24 hour monitoring of cardiac function, as well as specialist consultation with Cardiology. Quality Stroke Does the patient have a stroke diagnosis?: No VTE Prior VTE?: No VTE Risk Level:: Medical - moderate - high VTE Device Contraindication: Treatment Not Indicated VTE Drug Contraindication: N/A - Med Ordered
--- NOTE | 2024-03-17 16:55 | PHA.MEDREC ---
Pharmacy Consult ? Medication Reconciliation Pharmacy has completed the medication reconciliation. spoke with patient to confirm. He takes no prescription medications. He takes cranberry and green tea extract every other day for BPH.
[2024-03-17] MEDS: Lidocaine 4 % Patch ADH..PATCH 1 PATCH TRANSDERMA (18:00)
[2024-03-17] MEDS: Enoxaparin Sodium 40 MG/0.4 ML SYRINGE SUBCUT (18:00)
[2024-03-17] MEDS: oxyCODONE HCl Immed Release 5 MG TABLET PO (19:08)
[2024-03-18] VITALS (8 sets, daily range): BP systolic 105–145; BP diastolic 60–77; PULSE 57–70; RESP 14–20; TEMP 36.3–36.8; O2SAT 95–97
--- NOTE | 2024-03-18 07:55 | PC.NURSE ---
patient is sitting at the edge of the bed eating breakfast, alert and oriented x4. respirations equal and unlabored, skin dry and intact VSS
--- NOTE | 2024-03-18 10:36 | P.CONCA_ITS ---
History of Present Illness History of Present Illness Date of Service: 03/18/24 Requesting physician: Jeane Montoya Chief complaint: Syncopal episode Narrative: 73-year-old gentleman with no significant past medical history presenting for syncope. He said he passed stool and was combing his hair when he passed out and found himself on the floor. He hit his chest and had rib fracture. No prodrome of nausea vomiting or feeling hot or flushed. He was in [place] recently where he was doing significant outdoor activities. Labs and imaging reviewed. [facility] Past Medical History Medical History Elevated PSA Benign prostatic hyperplasia with lower urinary tract symptoms Surgical History Surgical History History of surgery Social History Social History Patient Tobacco Use Status: Never used Tobacco Advance Directives: No Advance Directives Information Provided: No Do you have a plan to hurt others: No Plan Nutrition Risks: No Nutritional Risk service: No Meds Allergies Allergy/AdvReac Type Severity Reaction Status Date / Time No Known Allergies Allergy Verified 03/17/24 10:37 Active Medications: Current Medications Acetaminophen (Acetaminophen 325 Mg Tablet) 650 mg PO Q6H PRN PRN Reason: Pain, Mild (Pain Scale 1-3) Benzonatate (Benzonatate 100 Mg Capsule) 100 mg PO TID PRN PRN Reason: Cough Docusate Sodium (Docusate Sodium 100 Mg Capsule) 100 mg PO DAILY PRN PRN Reason: Constipation Enoxaparin Sodium (Enoxaparin Sodium 40 Mg/0.4 Ml Syringe) 40 mg SUBCUT Q24H ERICA Last Admin: 03/17/24 18:00 Dose: 40 mg Lidocaine (Lidocaine 4 % Patch Adh..Patch) 1 patch TRANSDERMA DAILY COUNTS INCLUDE 234 BEDS AT THE [facility]; Protocol Last Admin: 03/17/24 18:00 Dose: 1 patch Melatonin (Melatonin 3 Mg Tablet) 6 mg PO BEDTIME PRN PRN Reason: Insomnia Ondansetron HCl (Ondansetron Hcl 4 Mg/2 Ml Vial) 4 mg IVPUSH Q8H PRN PRN Reason: Nausea and Vomiting Oxycodone HCl (Oxycodone Hcl Immed Release 5 Mg Tablet) 5 mg PO Q4H PRN PRN Reason: Pain, Moderate(Pain Scale 4-6) Last Admin: 03/17/24 19:08 Dose: 5 mg Sodium Chloride (0.9 % Sodium Chloride Flush 3 Ml Syringe) 3 ml IVFLUSH QSHIFT ERICA Last Admin: 03/18/24 07:53 Dose: Not Given Home Medications ?Medication ?Instructions ?Recorded ?Confirmed ?Last Taken ?Type cranberry 400 mg capsule 400 mg PO Q OTHER DAY 03/17/24 03/17/24 Unknown History green tea extract 500 mg capsule 500 mg PO Q OTHER DAY 03/17/24 03/17/24 Unknown History Physical Exam 2 Vital Signs: Vital Signs: Last Vital Signs Temp 98.2 F 03/18/24 07:16 Pulse 66 03/18/24 10:03 Resp 18 03/18/24 07:16 BP 127/76 03/18/24 10:03 Pulse Ox 95 03/18/24 07:16 O2 Del Method Room Air 03/18/24 07:16 BMI result Body Mass Index 23.4 GENERAL APPEARANCE: in no acute distress, pleasant. NECK: no carotid bruit, no jugular venous distention. SKIN: no suspicious lesions, warm and dry. HEART: no murmurs, regular rate and rhythm. LUNGS: clear to auscultation bilaterally. ABDOMEN: soft, nontender. EXTREMITIES: no edema. PERIPHERAL PULSES: equal. NEUROLOGIC: No gross deficits, AAO X 3 Objective Labs and Meds 03/17/24 10:59 03/17/24 10:59 Lab results: Laboratory Results - last 24 hr 03/17/24 03/17/24 03/17/24 10:59 11:05 12:29 WBC 7.8 RBC 4.70 Hgb 15.2 Hct 43.1 MCV 91.7 MCH 32.3 MCHC 35.3 RDW 12.6 Plt Count 179 MPV 8.9 L Immature Gran % (Auto) 0.9 H Neut % (Auto) 69.6 Lymph % (Auto) 21.6 Moody % (Auto) 6.5 Eos % (Auto) 0.9 Baso % (Auto) 0.5 Lymph # (Auto) 1.7 Moody # (Auto) 0.5 Eos # (Auto) 0.1 Baso # (Auto) 0.0 Abs Immat Gran (auto) 0.07 H Absolute Neuts (auto) 5.5 Absolute Nucleated RBC 0.000 Nucleated RBC % (auto) 0.0 PT 12.1 INR 1.0 D-Dimer High Sensitivty 1559 Sodium 144 Potassium 4.1 Chloride 109 H Carbon Dioxide 26 Anion Gap 13 BUN 11 Creatinine 0.80 Estim Creat Clear Calc 74.2 Estimated GFR > 60 Random Glucose 101 Lactic Acid 1.9 Calcium 9.1 Magnesium 2.0 Total Bilirubin 0.6 AST 20 ALT 15 Alkaline Phosphatase 41 Troponin I High Sens < 2.7 Total Protein 6.3 L Albumin 4.1 Urine Color Yellow Urine Appearance Clear Urine pH 5.5 Ur Specific [place] 1.020 Urine Protein Trace Urine Glucose (UA) Negative Urine Ketones Trace Urine Blood Negative Urine Nitrite Negative Ur Leukocyte Esterase Negative 03/17/24 13:59 WBC RBC Hgb Hct MCV MCH MCHC RDW Plt Count MPV Immature Gran % (Auto) Neut % (Auto) Lymph % (Auto) Moody % (Auto) Eos % (Auto) Baso % (Auto) Lymph # (Auto) Moody # (Auto) Eos # (Auto) Baso # (Auto) Abs Immat Gran (auto) Absolute Neuts (auto) Absolute Nucleated RBC Nucleated RBC % (auto) PT INR D-Dimer High Sensitivty Sodium Potassium Chloride Carbon Dioxide Anion Gap BUN Creatinine Estim Creat Clear Calc Estimated GFR Random Glucose Lactic Acid Calcium Magnesium Total Bilirubin AST ALT Alkaline Phosphatase Troponin I High Sens < 2.7 Total Protein Albumin Urine Color Urine Appearance Urine pH Ur Specific [place] Urine Protein Urine Glucose (UA) Urine Ketones Urine Blood Urine Nitrite Ur Leukocyte Esterase Imaging Radiologist's impression: Impressions Chest X-Ray 03/17/24 11:40 IMPRESSION: No radiographic evidence of acute cardiopulmonary disease. Cervical Spine CT 03/17/24 12:42 IMPRESSION: 1. No acute intracranial pathology. 2. Chronic white matter small vessel ischemic changes. EXAMINATION: Noncontrast CT scan of the cervical spine. INDICATION: Hit head COMPARISON: None. TECHNIQUE: Helical, multidetector axial images were obtained from the occiput to the upper thorax. Coronal and sagittal reformats of the cervical spine were provided for interpretation. DLP: 1077 mGy-cm FINDINGS: No acute fractures or dislocations of the cervical spine are seen. Multilevel degenerative changes. Anatomic alignment and positioning of the vertebral bodies and posterior elements is noted. The atlantoaxial joint and craniovertebral articulations are normal without evidence of subluxation. There is no prevertebral soft tissue swelling. The thyroid gland and visualized portions of the lung apices and mediastinum are unremarkable. IMPRESSION: 1. No acute visible fracture or dislocation. 2. Multilevel degenerative changes. Head CT 03/17/24 12:42 IMPRESSION: 1. No acute intracranial pathology. 2. Chronic white matter small vessel ischemic changes. EXAMINATION: Noncontrast CT scan of the cervical spine. INDICATION: Hit head COMPARISON: None. TECHNIQUE: Helical, multidetector axial images were obtained from the occiput to the upper thorax. Coronal and sagittal reformats of the cervical spine were provided for interpretation. DLP: 1077 mGy-cm FINDINGS: No acute fractures or dislocations of the cervical spine are seen. Multilevel degenerative changes. Anatomic alignment and positioning of the vertebral bodies and posterior elements is noted. The atlantoaxial joint and craniovertebral articulations are normal without evidence of subluxation. There is no prevertebral soft tissue swelling. The thyroid gland and visualized portions of the lung apices and mediastinum are unremarkable. IMPRESSION: 1. No acute visible fracture or dislocation. 2. Multilevel degenerative changes. Chest CTA 03/17/24 13:43 IMPRESSION: 1. No acute pulmonary embolus. 2. Nondisplaced fracture of the left fifth rib posteriorly. VTE: negative Venous Duplex 03/17/24 14:30 IMPRESSION: No DVT demonstrated either lower extremity. Assessment and Plan (1) Syncope: Status: Acute Plan Pleasant 73-year-old gentleman presenting with syncope. He clearly had situational syncope after passing stool. No obvious arrhythmia or dynamic EKG changes. No PE on CT scan. I would discuss with him about doing echocardiography tomorrow but he wishes to go home. We will arrange outpatient workup including echo and 2 weeks Holter monitor. I have advised him to keep himself well hydrated and avoid heat as much as possible. Thank you for allowing me to participate in the care of your patient. Please feel free to contact me if you have any questions. Procedures Date of Service Date of Service: 03/18/24
--- NOTE | 2024-03-18 11:39 | MHC.CM.PN ---
CM met with Patient at bedside, in the ED and provided Patient with the original MARKHAM and a copy will be placed on the chart. Patient lives in a house with his /HCP and he required no services nor DME [employer]PER[employer]. Home/self care is the goal and CM has initiated and will follow for dc planning. PCP is Dr. Bone.
--- NOTE | 2024-03-18 13:07 | P.DS_ITS ---
DS: Providers Provider Date of Service: 03/18/24 Date of admission: 03/17/24 17:16 Date of discharge: 03/18/24 Primary care physician: Darryl Bone MD Consults: 03/17/24 17:34 Consult to Cardiology Routine Consulting Provider: [facility] Reason for consultation: Syncopal episode DS: Diagnosis Discharge Diagnosis (1) Closed rib fracture: Status: Acute (2) Syncope: Status: Acute DS: Summary Hospital Course Hospital Course: From the history and physical by the admitting hospitalist, PETE Castro, 03/17/24: Pt is a 73-year-old male with PMH significant for BPH who presents to the ED for evaluation after syncopal episode at home. Patient reports he woke this morning in his normal state of health. Went to the bathroom, had a normal bowel movement without straining, and then stood up to brush his hair when he suddenly syncopized. Patient's in the next bathroom heard a loud bang and came in to find patient unresponsive on the floor. Gently shook him until he awakened 1-2 minutes later. Did not witness any seizure-like activity or postictal state. Patient himself denies any prodromal symptoms: No lightheadedness, dizziness, headache, aura. Does endorse upper left back and left sided anterior chest wall pain, worse with movement. Patient denies any recent illness or sick contacts. Does report 3 days prior flew home from [place] on a 6 hour flight No nausea, vomiting, abdominal pain. Denies chest pressure or palpitations. No fever, chills. Denies shortness of breath. Of note, patient underwent stress test on 02/15/2024 which was negative. Patient initially could not remember why he had the stress test, though review of records indicate it was for chest pain. Patient is unable to provide any significant or detailed history regarding this chest pain, though says he probably mentioned experiencing intermittent chest pain to his PCP who ordered the stress test. Reports being quite active with walking 3-5 miles daily. In the ED pt was hemodynamically stable with vital signs WNL. Orthostatics negative. Labs were grossly unremarkable. No leukocytosis. Stable H& H. No electrolyte abnormalities. Renal and hepatic function WNL. Serial troponins negative. Lactic acid WNL. UA negative for UTI. CXR showed no radioactive evidence of acute cardiopulmonary disease. Head CT negative for acute intracranial pathology, though did show chronic white matter small-vessel ischemic changes. CT of cervical spine negative for acute visible fracture or dislocation, but with multilevel degenerative changes. Chest CTA found no acute pulmonary embolus, though showed nondisplaced fracture of the left 5th rib posteriorly. Venous duplex of lower extremities bilaterally negative for DVT. EKG demonstrated sinus bradycardia of 57 with first-degree AV block, but no evidence of significant ST elevations or depressions. Pt will be admitted to the hospital under observation for further monitoring and evaluation of syncopal episode. He was admitted to the hospitalist service on telemetry. No arrhythmias noted. Repeat orthostatics negative. No obvious heart murmurs. No recurrence of syncope or presyncope symptoms. Cardiology consulted; likely vasovagal syncope but will perform outpatient echocardiogram to rule out valvular heart disease. Discharged home with incentive spirometry for pulmonary toilet, lidocaine patch and oxycodone for pain relief from rib fracture. Should follow up with Primary Care and Cardiology in 1-2 weeks. Time Attestation Discharge Coordination Time (in mins): 35 Quality: Safe Use of Opioids Does Pt have an Active Cancer Diagnosis on the Problem List?: No Quality: Stroke Does the patient have a stroke diagnosis?: No Physical Exam Vital Signs: Vital Signs: Last Vital Signs Temp 97.9 F 03/18/24 11:51 Pulse 60 03/18/24 11:51 Resp 14 03/18/24 11:51 BP 141/77 H 03/18/24 11:51 Pulse Ox 97 03/18/24 11:51 O2 Del Method Room Air 03/18/24 11:51 BMI result Body Mass Index 23.4 Gen: in no acute distress HEENT: sclera anicteric, moist mucus membranes Neck: supple Lungs: clear to auscultation bilaterally Heart: regular rate and rhythm, no murmurs Abd: soft, non-tender, non-distended Ext: no edema Skin: warm/well-perfused Neuro: alert and oriented x3, no focal findings Psych: appropriate affect DS: Data Data Completed and Pending Completed studies during hospitalization [Text1]: Laboratory Results WBC 7.8 X10*3/uL (4.8-10.8) 03/17/24 10:59 RBC 4.70 X10*6/uL (4.60-5.80) 03/17/24 10:59 Hgb 15.2 g/dl (14.0-18.0) 03/17/24 10:59 Hct 43.1 % (42.0-52.0) 03/17/24 10:59 MCV 91.7 fL (80.0-98.0) 03/17/24 10:59 MCH 32.3 pg (27.0-33.0) 03/17/24 10:59 MCHC 35.3 g/dl (31.0-36.0) 03/17/24 10:59 RDW 12.6 % (11.0-16.0) 03/17/24 10:59 Plt Count 179 X10*3/uL (160-400) 03/17/24 10:59 MPV 8.9 fL (9.4-12.4) L 03/17/24 10:59 Immature Gran % (Auto) 0.9 % (0.0-0.4) H 03/17/24 10:59 Neut % (Auto) 69.6 % (45-73) 03/17/24 10:59 Lymph % (Auto) 21.6 % (20-40) 03/17/24 10:59 Ward % (Auto) 6.5 % (2-11) 03/17/24 10:59 Eos % (Auto) 0.9 % (0-4) 03/17/24 10:59 Baso % (Auto) 0.5 % (0-2) 03/17/24 10:59 Lymph # (Auto) 1.7 X10*3/uL (1.2-4.9) 03/17/24 10:59 Ward # (Auto) 0.5 X10*3/uL (0.1-1.2) 03/17/24 10:59 Eos # (Auto) 0.1 X10*3/uL (0.0-0.4) 03/17/24 10:59 Baso # (Auto) 0.0 X10*3/uL (0.0-0.2) 03/17/24 10:59 Abs Immat Gran (auto) 0.07 X10*3/uL (0.00-0.03) H 03/17/24 10:59 Absolute Neuts (auto) 5.5 x10*3/uL (2.0-8.3) 03/17/24 10:59 Absolute Nucleated RBC 0.000 X10*3/uL (0.0-0.012) 03/17/24 10:59 Nucleated RBC % (auto) 0.0 /100WBC (0.0-0.2) 03/17/24 10:59 PT 12.1 SEC (11.1-13.3) 03/17/24 12:29 INR 1.0 (0.9-1.1) 03/17/24 12:29 D-Dimer High Sensitivty 1559 NG/ML 03/17/24 12:29 Sodium 144 mmol/L (135-145) 03/17/24 10:59 Potassium 4.1 mmol/L (3.3-5.1) 03/17/24 10:59 Chloride 109 mmol/L (96-108) H 03/17/24 10:59 Carbon Dioxide 26 mmol/L (22-29) 03/17/24 10:59 Anion Gap 13 (12-20) 03/17/24 10:59 BUN 11 mg/dL (9-16) 03/17/24 10:59 Creatinine 0.80 mg/dL (0.5-1.4) 03/17/24 10:59 Estim Creat Clear Calc 74.2 03/17/24 10:59 Estimated GFR > 60 03/17/24 10:59 Random Glucose 101 mg/dL (60-115) 03/17/24 10:59 Lactic Acid 1.9 mmol/L (0.5-2.0) 03/17/24 12:29 Calcium 9.1 mg/dL (8.4-10.2) 03/17/24 10:59 Magnesium 2.0 mg/dL (1.6-2.6) 03/17/24 12:29 Total Bilirubin 0.6 mg/dL (0.0-1.0) 03/17/24 10:59 AST 20 U/L (5-37) 03/17/24 10:59 ALT 15 U/L (0-40) 03/17/24 10:59 Alkaline Phosphatase 41 U/L (39-117) 03/17/24 10:59 Troponin I High Sens < 2.7 ng/L (<3.5-35.0) 03/17/24 13:59 Total Protein 6.3 g/dL (6.5-8.0) L 03/17/24 10:59 Albumin 4.1 g/dL (3.5-5.0) 03/17/24 10:59 Urine Color Yellow 03/17/24 11:05 Urine Appearance Clear 03/17/24 11:05 Urine pH 5.5 (5.0-9.0) 03/17/24 11:05 Ur Specific [place] 1.020 (1.005-1.025) 03/17/24 11:05 Urine Protein Trace mg/dL (Neg-Trace) 03/17/24 11:05 Urine Glucose (UA) Negative mg/dL (Negative) 03/17/24 11:05 Urine Ketones Trace mg/dL (Negative) 03/17/24 11:05 Urine Blood Negative (Negative) 03/17/24 11:05 Urine Nitrite Negative (Negative) 03/17/24 11:05 Ur Leukocyte Esterase Negative (Negative) 03/17/24 11:05 Impressions Chest X-Ray 03/17/24 11:40 IMPRESSION: No radiographic evidence of acute cardiopulmonary disease. Cervical Spine CT 03/17/24 12:42 IMPRESSION: 1. No acute intracranial pathology. 2. Chronic white matter small vessel ischemic changes. EXAMINATION: Noncontrast CT scan of the cervical spine. INDICATION: Hit head COMPARISON: None. TECHNIQUE: Helical, multidetector axial images were obtained from the occiput to the upper thorax. Coronal and sagittal reformats of the cervical spine were provided for interpretation. DLP: 1077 mGy-cm FINDINGS: No acute fractures or dislocations of the cervical spine are seen. Multilevel degenerative changes. Anatomic alignment and positioning of the vertebral bodies and posterior elements is noted. The atlantoaxial joint and craniovertebral articulations are normal without evidence of subluxation. There is no prevertebral soft tissue swelling. The thyroid gland and visualized portions of the lung apices and mediastinum are unremarkable. IMPRESSION: 1. No acute visible fracture or dislocation. 2. Multilevel degenerative changes. Head CT 03/17/24 12:42 IMPRESSION: 1. No acute intracranial pathology. 2. Chronic white matter small vessel ischemic changes. EXAMINATION: Noncontrast CT scan of the cervical spine. INDICATION: Hit head COMPARISON: None. TECHNIQUE: Helical, multidetector axial images were obtained from the occiput to the upper thorax. Coronal and sagittal reformats of the cervical spine were provided for interpretation. DLP: 1077 mGy-cm FINDINGS: No acute fractures or dislocations of the cervical spine are seen. Multilevel degenerative changes. Anatomic alignment and positioning of the vertebral bodies and posterior elements is noted. The atlantoaxial joint and craniovertebral articulations are normal without evidence of subluxation. There is no prevertebral soft tissue swelling. The thyroid gland and visualized portions of the lung apices and mediastinum are unremarkable. IMPRESSION: 1. No acute visible fracture or dislocation. 2. Multilevel degenerative changes. Chest CTA 03/17/24 13:43 IMPRESSION: 1. No acute pulmonary embolus. 2. Nondisplaced fracture of the left fifth rib posteriorly. VTE: negative Venous Duplex 03/17/24 14:30 IMPRESSION: No DVT demonstrated either lower extremity. Discharge Plan Discharge Patient Disposition: Home, Self-Care Discharge Diagnosis: syncope likely vasovagal rib fracture due to fall Referrals: Darryl Bone MD [Primary Care Provider] - 3 days Discharge Medications: New lidocaine [Lidocaine Pain Relief] 4 % Adhesive Patch,Medicated 1 patch transdermal DAILY Qty: 30 0RF Protocol: Apply to: Apply to: Left side of back for posterior 5th rib fracture oxycodone 5 mg Tablet 5 mg PO Q6H PRN (Reason: Pain, Moderate(Pain Scale 4-6)) Qty: 12 0RF Rx Instructions: Partial Fill upon patient request. Continued cranberry 400 mg Capsule 400 mg PO Q OTHER DAY Rx Instructions: administer with a meal green tea extract 500 mg Capsule 500 mg PO Q OTHER DAY Discharge Orders: Discharge Order (Routine); Ordered 03/18/24 Ordered By: Jeane Montoya Diet: Advance to usual diet Activity on Discharge: As tolerated Stand Alone Forms: Patient Portal Discharge page Print Language: Algerian Activity Restrictions/Additional Instructions: Please use the incentive spirometer every 2 hours while awake You may take Motrin or Tylenol for pain as needed Your lab work, EKG, x-ray, CT and ultrasound are all normal. You may need to have an outpatient Holter monitor done and therefore you should follow-up with your primary care doctor. Please return for any worsening symptoms. Care Plan Goals: avoid syncope heal from fracture Health Concerns: syncope likely vasovagal rib fracture due to fall Plan of Treatment: follow up with [facility] for outpatient echocardiogram: [facility] Address: [address] [place] [address] [address], [place] [address] orthostatic precautions take acetaminophen [Tylenol] for mild pain, oxycodone for moderate-severe pain; also use lidocaine patch use incentive spirometer Please follow up with your primary care doctor within 1 week. Return to the hospital if you experience recurrent or worsening symptoms. Assessment: See Discharge Summary. Patient Instructions: Rib Fracture (ED), Syncope (ED)
--- NOTE | 2024-03-18 13:14 | MHC.CM.PN ---
Patient has been medically cleared for dc to home today, self care.
--- NOTE | 2024-03-18 13:47 | PC.NURSE ---
patient given incentive spirometer as ordered by inpatient doctor, patient educated on how/when to use, patient return demonstration to show understanding of use.
== END 2024-03-18 13:41 | disposition home or self-care (01) ==
LOC: HO.ED 16:28 → HO.EDOVER 17:28
PROVIDERS: Nurse Practitioner Family; Admitting Provider Student in an Organized Health Care Education/Training Program; Emergency Provider Student in an Organized Health Care Education/Training Program; PCP Internal Medicine; Visit Provider Family Medicine
DX: S22.39XA Fracture of one rib, unspecified side, initial encounter for closed fracture (principal); W18.30XA Fall on same level, unspecified, initial encounter; Y93.9 Activity, unspecified; Y92.89 Other specified places as the place of occurrence of the external cause; Y99.9 Unspecified external cause status; R55 Syncope and collapse; R79.1 Abnormal coagulation profile; N40.0 Benign prostatic hyperplasia without lower urinary tract symptoms; M54.89 Other dorsalgia; R07.89 Other chest pain
CPT/HCPCS: 36415; 70450; 71046; 71275; 72125; 80053; 81003; 83605; 83735; 84484; 85025; 85379; 85610; 93005; 93970; 96372; 99222; 99285; J1650; Q9967

== ENCOUNTER → 2024-03-17 17:16 | Outpatient (BNV) | payer MEDICARE, OTHER, SELFPAY | PROVIDERS: Admitting Provider Student in an Organized Health Care Education/Training Program; Emergency Provider Student in an Organized Health Care Education/Training Program; PCP Internal Medicine; Visit Provider Student in an Organized Health Care Education/Training Program | DX: S22.39XA Fracture of one rib, unspecified side, initial encounter for closed fracture (principal); R55 Syncope and collapse | CPT/HCPCS: 99222; 99239 ==

== ENCOUNTER → 2024-03-17 17:16 | Outpatient (BNV) | payer MEDICARE, OTHER, SELFPAY | PROVIDERS: Admitting Provider Student in an Organized Health Care Education/Training Program; Emergency Provider Student in an Organized Health Care Education/Training Program; PCP Internal Medicine; Visit Provider Internal Medicine Cardiovascular Disease | DX: R55 Syncope and collapse (principal) | CPT/HCPCS: 93010; 99223 ==

== ENCOUNTER → 2024-03-20 12:39 | Outpatient (REF) | payer MEDICARE, OTHER, SELFPAY ==
--- NOTE | 2024-03-20 12:45 | CA_ITS ---
Transthoracic Echocardiogram Patient (Last, First, Middle): Tristan Moon A Gender: Male Date of : 1950 Age: 73 Procedure Date: 03/20/2024 Procedure Type: Transthoracic Echocardiogram Location: OP Height: 165.1 cm Weight: 65.77 kg BSA: 1.73 m2 Heart Rate: bpm BP: 118 / 75 mmHg Priming Powder Premix Blender: JAIME Referring MD: Rafael Richardson MD Plasterer Spot: Rafael Richardson MD Symptoms: R55 - Syncope and collapse Study Quality: Adequate Conclusions: - Normal left ventricular size, thickness, systolic function, and wall motion. The visually estimated ejection fraction is between 60-65%. Diastolic function is normal for age. - Normal right ventricular cavity size and systolic function - There is mild dilatation of the sinuses of Valsalva measuring 4.08 cm. - The inferior vena cava is collapsed, consistent with reduced intravascular volume. Findings Left Ventricle Normal left ventricular size, thickness, systolic function, and wall motion. The visually estimated ejection fraction is between 60-65%. Diastolic function is normal for age. Right Ventricle Normal right ventricular cavity size and systolic function. Atria The left atrium is normal in size. The right atrium is normal in size. Aortic Valve There is a normal trileaflet aortic valve. There is no aortic valve stenosis. There is no aortic valve regurgitation. Mitral Valve The mitral valve appears normal. There is no mitral valve regurgitation. There is no mitral valve stenosis. Pulmonic Valve The pulmonic valve is likely normal. Tricuspid Valve Normal tricuspid valve structure and function. Low right atrial pressure. There is no evidence of pulmonary hypertension. Great Vessels There is mild dilatation of the sinuses of Valsalva measuring 4.08 cm. Venous The inferior vena cava is collapsed, consistent with reduced intravascular volume. Pericardium/Pleural There is no evidence of pericardial effusion. Prior Study Comparison No prior study available for comparison. Measurements 2D Linear Measurements IVSd: 0.98 0.6-0.9/0.6-1.0 cm LVIDd: 3.87 3.9-5.3/4.2-5.9 cm LVIDd Index: 2.24 2.4-3.2/2.2-3.1 cm/m2 LVIDs: 2.27 2.0-3.6 cm LVPWd: 0.93 0.7-1.1 cm LA Diam: 2.40 2.7-3.8/3.0-4.0 cm LAIDs Index: 1.39 1.5-2.3 cm/m2 LV Mass: 140.55 67-162/88-224 g LV Mass Index: 81.24 43-95/49-115 g/m2 LVOT Diam: 2.30 3.0+(-)1.3 cm 2D Systolic Function EF 4C: 68.50 >55% EF 2C: 67.80 >55% EF BiP: 68.50 >55% Mitral Valve MV Pk E: 0.63 MV PK A: 0.78 MV Decel Time: 337.00 E/A: 0.80 E'Lateral: 8.38 E'Medial: 6.85 E/E' Med: 9.20 E/E' Lat: 7.50 PHT: 99.00 MVA PHT: 2.[address] [place]: 1.87 Aortic Valve AoV Pk Ross: 1.43 AoV Mn Ross: 0.98 AoV VTI: 0.28 AoV Pk Grad: 8.00 Aov Mn Grad: 4.00 JONATHON Cont.VTI: 2.69 LVOT LVOT Pk Ross: 0.84 LVOT Mn Ross: 0.56 LVOT VTI: 0.18 LVOT Pk Grad: 3.00 LVOT Mn Grad: 1.00 LVOT Diam: 2.30 LVOT Area: 4.15 Diastolic Function MV Pk E: 0.63 MV Pk A: 0.78 E/A: 0.80 E'Medial: 6.85 E/E' Med: 9.20 E' Laterial: 8.38 E/E' Lat: 7.50 Right Ventricle TAPSE (mm): 23.80 TVS' Ross: 12.10 Tricuspid Valve TR Pk Ross: 2.02 TR Pk Grad: 16.00 RA Press: 3.00 RVSP: 19.00 Great Vessels Aorta Sinus of Valsalva: 4.08 2.0-3.[address] [place]: 2.43 1.7-3.4 cm Ao Asc: 3.30 2.1-3.4 cm Updated in Other Vendor System with Status of Final Rafael Richardson MD electronically signed on 03/21/2024 3:49:51 PM with status of Final
--- NOTE | 2024-03-20 12:45 | HM_ITS ---
Conclusion: 1. Patient was monitored for total period of 14 days 2. Baseline was normal sinus rhythm with average heart rate of 72 beats per minute 3. No significant pauses noted 4. Rare PACs and PVCs noted with 1 SVT episode at 128 beats per minute lasting 7 beats. 5. Patient entered 4 events 2 of which were during monitoring. Correlating with sinus rhythm. MTDD
== END ==
LOC: HO.CARD 12:39
PROVIDERS: Visit Provider Internal Medicine Cardiovascular Disease
DX: R55 Syncope and collapse (principal)
CPT/HCPCS: 93246; 93306

== ENCOUNTER → 2024-03-20 12:45 | Outpatient (BNV) | payer MEDICARE, OTHER, SELFPAY | PROVIDERS: Visit Provider Internal Medicine Cardiovascular Disease | DX: I49.1 Atrial premature depolarization (principal); I49.3 Ventricular premature depolarization | CPT/HCPCS: 93248; 93306 ==

== ENCOUNTER 2024-05-04 11:23 | Outpatient (REF) | payer MEDICARE, OTHER, SELFPAY ==
[2024-05-04 14:09] LABS: PSA,Total (Free>4and<10) 4.38 ng/mL (0.00-4.00)
[2024-05-07 11:03] LABS: Free Prostate Spec Ag 1.2 ng/mL; Percent Free Prostate Spec Ag 26 % (calc) (>25); Prostate Specific Ag Total 4.7 ng/mL (< OR = 4.0)
== END 2024-05-04 11:24 | disposition home or self-care (01) ==
LOC: HO.HMGCLDS 11:23
PROVIDERS: PCP Internal Medicine; Visit Provider Urology
DX: Z12.5 Encounter for screening for malignant neoplasm of prostate (principal); R97.20 Elevated prostate specific antigen [PSA]
CPT/HCPCS: 36415; 84153; 84154

== ENCOUNTER 2024-05-15 14:52 | Outpatient (AMB) | payer MEDICARE, OTHER, SELFPAY ==
[2024-05-15 15:09] VITALS: BP 120/82; PULSE 56; BMI 24.0
--- NOTE | 2024-05-15 15:09 | A.OFFVIS_ITS ---
Vital Signs 05/15/24 15:09 Height 5 ft 6 in Weight 148 lb 9.465 oz BMI 24.0 BP 120/82 Pulse 56 Pulse Source Pulse Oximeter Intake Visit Reasons: [facility]/03-17/Syncope (KM) Manager Strategic Required: No Allergies No Known Allergies Allergy (Verified 05/15/24 15:12) Medication List - Last Reconciled 05/15/24 by Monica Case, REAL ESTATE LEASING MANAGER-C cranberry 400 mg PO Q OTHER DAY green tea extract 500 mg PO Q OTHER DAY lidocaine 4% (Lidocaine Pain Relief) 1 patch See Protocol transdermal DAILY HPI HPI [facility]/Syncope (KM): Details: Tristan is a 74-year-old male with no cardiac history who recently presented to [facility] following a syncopal event at home. He describes that he was in the bathroom, had a bowel movement, was standing at the mirror brushing his hair then had syncope. He did not have any witnessed incontinence or abnormal movements. ER evaluation showed only a nondisplaced left 5th rib fracture. He was monitored overnight without abnormalities noted. He was seen by Dr. Celveland for cardiology and he was thought to have situational syncope. He had an outpatient echocardiogram and Holter monitor and now presents for follow- up. Today he reports that had a 2nd syncopal event approximately 1 month after the 1st. He describes the situation as being the same as the initial episode. This time he did not seek medical attention. He describes no warning sign. Upon awakening he felt mildly disoriented but cleared up within a minute. His was present. It has been approximately 3 weeks since that occurred and he has not had any recurrent episodes. He feels well with no lightheadedness, dizziness, presyncope, falls. No shortness of breath, PND, orthopnea or edema. No chest discomfort at rest or with activity. He has been doing normal physical activities and walks routinely. He has never had fainting in the past prior to these 2 episodes. Has no cardiac history that he is aware of. [facility] Medical History Elevated PSA Benign prostatic hyperplasia with lower urinary tract symptoms Surgical History History of surgery Social History Patient Tobacco Use Status: Never used Tobacco service: No Review of Systems Const Details: Second syncopal events All systems reviewed & are unremarkable except as noted in HPI and below ENT Denies dizziness Card Denies chest pain, Denies chest pain at rest, Denies chest pain with activity, Denies rapid heart rate, Denies pedal edema, Denies edema, Denies leg edema, Denies lightheadedness, Denies palpitations, Denies dyspnea, Denies dyspnea on exertion and Denies orthopnea Resp Denies cough, Denies dyspnea and Denies dyspnea on exertion GI Denies hematochezia and Denies change in stool character Musc Denies abnormal gait, Denies limited range of motion, Denies muscle cramps, Denies muscle weakness, Denies numbness, Denies radiating pain into limb, Denies stiffness and Denies tingling Neuro Denies abnormal gait, Denies dizziness, Denies numbness and Denies tingling Endo Denies palpitations Physical Exam Vital Signs: Last Vital Signs Pulse 56 05/15/24 15:09 BP 120/82 05/15/24 15:09 BMI result Body Mass Index 24.0 Const General: cooperative, healthy appearing, comfortable and no acute distress Orientation/consciousness: patient oriented x3 Neck Neck: Yes normal visual inspection and Yes no JVD Resp Effort & Inspection: normal respiratory effort Auscultation: clear to auscultation bilaterally, no crackles, no rales, no rhonchi and no wheezes Cardio Jugular venous distension: no JVD Rate: regular rate Rhythm: regular rhythm Heart sounds: S1 normal heart sound present, S2 normal heart sound present, no murmurs and no rubs Neuro General: patient oriented x3 Extrem General: Yes normal to inspection, No no pedal edema and No calf tenderness Psych Appearance: grossly normal Mental Status: mental status grossly normal Speech and movement: Normal speech and movement present Assessment & Plan Assessment & Plan (1) Syncope: Code(s): R55 - Syncope and collapse Category: Medical Plan: Two episodes of what seems like situational syncope. Each occurred after having a bowel movement then standing up at the sink to brush his hair. No warning sign, no incontinence. Awakened with only brief disorientation that lasted less than a minute. ER evaluation showed no DVT, no PE, normal troponins, EKG with no acute abnormalities. Head CT was negative. He was found to have a nondisplaced left 5th rib fracture. Telemetry monitoring overnight showed no arrhythmia. An echocardiogram done 03/20/2024 showed EF 60-65%, no regional wall motion abnormalities, inferior vena cava collapsed, decreased intravascular volume, sinus of Valsalva 4.08 cm. Holter monitor done to 03/20/2024 for 14 days shows sinus rhythm with average heart rate 72, rare PACs and PVCs, 1 SVT run, 7 beats. Test results reviewed with him in detail. Instructed on the need for increasing his hydration. Continue physical activity as tolerated. Situation of his syncope discussed with him and informed to use much caution when standing after bowel movement. Symptoms of presyncope discussed. Instructed to sit/lay down if he feels any presyncope. Will further discuss case with , to determine if any further testing is needed at this time. Office visit follow-up in 2 months, sooner if needed. Plan Time spent on chart review, documentation, intravenous assessment Coding Level of Care Code Est Pt Level 3 (31376) Diagnoses Syncope R55 Time Spent (min) 24
== END 2024-05-15 15:39 | disposition home or self-care (01) ==
PROVIDERS: Visit Provider Nurse Practitioner Family
DX: R55 Syncope and collapse (principal)
CPT/HCPCS: 99213

== ENCOUNTER → 2024-05-15 14:52 | Outpatient (BNVA) | payer MEDICARE, OTHER, SELFPAY | PROVIDERS: Visit Provider Nurse Practitioner Family | DX: R55 Syncope and collapse (principal) | CPT/HCPCS: 99212 ==

== ENCOUNTER 2024-05-16 09:13 | Outpatient (AMB) | payer MEDICARE, OTHER, SELFPAY ==
--- NOTE | 2024-05-16 09:10 | A.OFFVIS_ITS ---
Intake Visit Reasons: 6M Follow Up- PSA(set) Intake Note: Patient is Present for 6M Follow Up/ PSA Urology Medication: None Antibiotic Allergies: None Blood Thinners: NONE Music Copyist Required: No Allergies No Known Allergies Allergy (Verified 05/16/24 09:11) Medication List - Last Reconciled 05/16/24 by Bentley Torres MD cranberry 400 mg PO Q OTHER DAY green tea extract 500 mg PO Q OTHER DAY lidocaine 4% (Lidocaine Pain Relief) 1 patch See Protocol transdermal DAILY HPI Comments Details: Tristan is a very pleasant male. He is a patient of Dr. Bone. He is in for the following issues - elevated PSA - lower urinary tract symptoms Telemedicine Evaluation 15 min Consultation Doximity Declan Video attempted Six-month follow-up PSA PSA 05/16 4.7 26% PVR 58 Previously high in 2019 with prostatic inflammation Previously discussed finasteride Start finasteride, six-month follow-up PSA, six-month follow-up bladder ultrasound Elevated PSA Discussed current results Prior biopsy 2018 negative, PSA at biopsy 9 PSA 03/12 4.4, 03/13 3.4, 08/14 3.5, 09/15 7.2 18%, 11/16 3.4, 05/16 4.7 26% Keep doing green tea extract PFSH Medical History Elevated PSA Benign prostatic hyperplasia with lower urinary tract symptoms Surgical History History of surgery Social History Patient Tobacco Use Status: Never used Tobacco service: No Review of Systems Const All systems reviewed & are unremarkable except as noted in HPI and below Reports no additional complaints Resp Reports no additional complaints GI Reports no additional complaints Reports as per HPI Musc Reports no additional complaints Physical Exam Telemedicine evaluation Appropriate responses Regular breathing rate and rhythm HEENT Head: Yes normal to inspection Ears: hearing grossly normal bilaterally Eyes General: appearance normal, both eyes and all related structures Neck Neck: Yes normal visual inspection Chest Chest palpation & inspection: normal inspection of the chest Resp Effort & Inspection: normal respiratory effort and able to speak in complete sentences Telehealth Telehealth Telehealth Platform: [employer] Location of provider rendering services: practice address Location of patient: address on file Patient Identification confirmed using: Name, : Yes Telehealth method: video Patient verbally consented to treatment: Yes Patient verbally consented to billing insurance company: Yes Patient informed of any privacy concerns related to visit: Yes Minutes spent on Phone/Video with Pt.: 15 Assessment & Plan Assessment & Plan (1) Benign prostatic hyperplasia with lower urinary tract symptoms: Code(s): N40.1 - Benign prostatic hyperplasia with lower urinary tract symptoms Category: Medical Qualifiers: Lower urinary tract symptom detail: incomplete bladder emptying Qualified Code(s): N40.1 - Benign prostatic hyperplasia with lower urinary tract symptoms; R39.14 - Feeling of incomplete bladder emptying (2) Elevated PSA: Code(s): R97.20 - Elevated prostate specific antigen [PSA] Category: Medical Plan Finasteride six-month follow-up Orders: Orders US bladder 6 Months N40.1 - Benign prostatic hyperplasia with lower urinary tract symptoms, R39.12 - Poor urinary stream, R39.14 - Feeling of incomplete bladder emptying Prostate Specific Antigen 6 Months N40.1 - Benign prostatic hyperplasia with lower urinary tract symptoms, R39.14 - Feeling of incomplete bladder emptying Medications: New finasteride 5 mg PO DAILY 90 days 90 tabs 1RF N13.8 - Other obstructive and reflux uropathy, N40.1 - Benign prostatic hyperplasia with lower urinary tract symptoms, R33.9 - Retention of urine, unspecified, R39.14 - Feeling of incomplete bladder emptying Patient Instructions: Imaging studies, laboratory and physical exam results were discussed and reviewed in detail. No major barriers to patient understanding were identified. An opportunity to ask questions regarding the treatment plan was provided. All questions were answered. The patient expressed understanding and agreement with the above treatment plan. The patient is aware they should contact our office by phone for worsening of their current condition or the appearance of new urologic symptoms. Compliance is encouraged with any medications and followup testing that is ordered. It is a privilege to participate in the urologic care of your patient. If you have any questions or concerns regarding treatment for the above conditions, or other urologic issues, please do not hesitate to contact me. The office telephone contact is [phone]. This note is constructed using voice recognition software. While every effort has been made to ensure accuracy strap folding machine operator errors may have been included. Yours sincerely, Dr Bentley Torres MD, [facility] - Urology Providers of Expert, Compassionate Care for the Genitourinary System Coding Level of Care Code Tele Est Pt Level 4 (05932) Diagnoses Benign prostatic hyperplasia with incomplete bladder emptying N40.1; R39.14 Lower urinary tract symptom detail: incomplete bladder emptying Elevated PSA R97.20
== END 2024-05-16 09:52 | disposition home or self-care (01) ==
LOC: HO.HUSH 09:13
PROVIDERS: PCP Internal Medicine; Visit Provider Urology
DX: N40.1 Benign prostatic hyperplasia with lower urinary tract symptoms (principal); R39.14 Feeling of incomplete bladder emptying; R97.20 Elevated prostate specific antigen [PSA]
CPT/HCPCS: 99214

== ENCOUNTER → 2024-05-16 09:13 | Outpatient (BNVA) | payer MEDICARE, OTHER, SELFPAY | PROVIDERS: PCP Internal Medicine; Visit Provider Urology ==

== ENCOUNTER 2024-07-30 12:33 | Outpatient (AMB) | payer MEDICARE, OTHER, SELFPAY ==
--- NOTE | 2024-07-30 12:42 | A.OFFVIS_ITS ---
Vital Signs 07/30/24 12:43 Height 5 ft 6 in Weight 151 lb 10.848 oz BMI 24.5 BP 130/60 Blood Pressure Location Lt brachial Position Sitting Pulse 54 Pulse Source Monitor Intake Visit Reasons: 2 mth/colonoscopy 09/04 Intake Note: 2 mth f/up/colonoscopy Clearance 09/04 Filament Tester Required: No Accompanied by: Spouse Allergies No Known Allergies Allergy (Verified 05/16/24 09:11) Medication List - Last Reconciled 07/30/24 by Rafael Richardson MD cranberry 400 mg PO Q OTHER DAY green tea extract 500 mg PO Q OTHER DAY lidocaine 4% (Lidocaine Pain Relief) 1 patch See Protocol transdermal DAILY HPI Comments Details: [age] year gentleman who is here for follow-up. He was seen in the hospital in 03/12/2024 when he presented with syncope. He was passing stool and just passed out afterwards. It was felt that he has situational syncope. He underwent echocardiography which showed normal LVEF per the IVC was collapsed and we thought that he has dehydration which led to vasovagal syncope. He was advised to increase fluid intake. He also had 14 days Holter monitor which did not show any significant issues except 1 episode of SVT at 128 beats per minute lasting for 7 beats. He did not have any symptoms. He also had a tilt-table test where after getting nitroglycerin he had significant tachycardia which was documented as sinus tachycardia although his heart rate were 170s to 180s. He said he did not feel dizzy or passed out at that time. He had 1 episode of tunnel vision while driving which was self-limiting without syncope before he went for the tilt-table test. In the last week he has started drinking more water. He was not hydrating well before that as per the . [facility] Medical History Elevated PSA Benign prostatic hyperplasia with lower urinary tract symptoms Surgical History History of surgery Social History Patient Tobacco Use Status: Never used Tobacco service: No Review of Systems Const Denies chills, Denies fatigue, Denies fever(s), Denies frequent falls, Denies weakness, Denies weight gain and Denies weight loss ENT Denies dizziness Card Denies chest pain, Denies leg edema, Denies lightheadedness, Denies palpitations, Denies dyspnea and Denies dyspnea on exertion Resp Denies cough, Denies dyspnea and Denies dyspnea on exertion GI Denies hematochezia Musc Denies abnormal gait, Denies muscle weakness, Denies numbness, Denies radiating pain into limb and Denies tingling Neuro Denies abnormal gait, Denies dizziness, Denies frequent falls, Denies numbness, Denies tingling and Denies weakness Endo Denies fatigue and Denies palpitations Physical Exam Vital Signs: Last Vital Signs Pulse 54 07/30/24 12:43 BP 130/60 07/30/24 12:43 BMI result Body Mass Index 24.5 Last Vital Signs Temp 98.2 F 03/18/24 07:16 Pulse 66 03/18/24 10:03 Resp 18 03/18/24 07:16 BP 127/76 03/18/24 10:03 Pulse Ox 95 03/18/24 07:16 O2 Del Method Room Air 03/18/24 07:16 BMI result Body Mass Index 23.4 GENERAL APPEARANCE: in no acute distress, pleasant. NECK: no carotid bruit, no jugular venous distention. SKIN: no suspicious lesions, warm and dry. HEART: no murmurs, regular rate and rhythm. LUNGS: clear to auscultation bilaterally. ABDOMEN: soft, nontender. EXTREMITIES: no edema. PERIPHERAL PULSES: equal. NEUROLOGIC: No gross deficits, AAO X 3 Office Procedures EKG Details: Sinus bradycardia 54 beats per minute first-degree AV block with IA interval 230 milliseconds, normal axis, normal ECG otherwise, QTC 385 milliseconds. [id number], Complete Assessment & Plan Assessment & Plan (1) Syncope: Code(s): R55 - Syncope and collapse Category: Medical Plan [age] year gentleman who is here for follow-up for syncope. He had 1 episode of situation syncope after passing stool. He also had another episode while driving where he had tunnel vision which recovered on its own. He did not black out at that time. His echocardiography showed collapsed IVC. During tilt-table test he did not have any reproducible syncope but did have significant tachycardia after getting nitroglycerin. I am not sure whether he had a run of supraventricular tachycardia then or not but documentation is that it heart rates were quite fast in 170s to 180s. He has started drinking water in the last week. I have advised him to drink sports drinks like Powerade or Gatorade daily. He has can continue to hydrate himself as before. I think his presentation was due to dehydration and vasovagal syncope. I have advised him to avoid heat as much as possible. No significant issues picked up on his workup so far. He will follow-up with us in few months. He will do general measures as advised to him a as above. Thank you for allowing me to participate in the care of your patient. Please feel free to contact me if you have any questions. Coding Level of Care Code Est Pt Level 4 (33811) Diagnoses Syncope R55 CPT Codes EKG - CPT: 35584-[id number], Complete ([id number])
[2024-07-30 12:43] VITALS: BP 130/60; PULSE 54; BMI 24.5
== END 2024-07-30 13:13 | disposition home or self-care (01) ==
PROVIDERS: PCP Internal Medicine; Visit Provider Internal Medicine Cardiovascular Disease
DX: R55 Syncope and collapse (principal)
CPT/HCPCS: 93010; 99214

== ENCOUNTER → 2024-07-30 12:33 | Outpatient (BNVA) | payer MEDICARE, OTHER, SELFPAY | PROVIDERS: PCP Internal Medicine; Visit Provider Internal Medicine Cardiovascular Disease | DX: I44.0 Atrioventricular block, first degree (principal); R55 Syncope and collapse | CPT/HCPCS: 93005; 99212 ==

== ENCOUNTER 2024-09-04 06:16 | Day surgery (SDC) | payer MEDICARE, OTHER, SELFPAY ==
[2024-08-31 12:54] VITALS: BMI 24.4
[2024-09-04 06:31] VITALS: BP 134/67; PULSE 52; RESP 20; TEMP 36.9; O2SAT 97; BMI 24.3
[2024-09-04] MEDS: Lactated Ringers 1,000 ML 50 ML IVCONT (06:51)
--- NOTE | 2024-09-04 07:21 | HO.ANESPROP2 ---
[facility] Active Problems Active Problems: All Active Problems Closed rib fracture (Acute) Syncope (Acute) Benign prostatic hyperplasia with lower urinary tract symptoms (Acute) Elevated PSA (Acute) Past Medical History Medical History Elevated PSA Benign prostatic hyperplasia with lower urinary tract symptoms Family History Family history of problems with anesthesia: No Surgical History Surgical History History of surgery History of Problems with Anesthesia: No Social History Social History Patient Tobacco Use Status: Never used Tobacco Have you been hit, kicked, punched, or otherwise hurt by someone within the past year? If so, by whom?: No Are you DNR?: No Advance Directives: No Advance Directives Information Provided: Yes service: No Meds Allergies Allergy/AdvReac Type Severity Reaction Status Date / Time No Known Allergies Allergy Verified 05/16/24 09:11 Active Medications: Current Medications Lactated Ringer's (Lr) 1,000 mls @ 50 mls/hr IVCONT .Q20H ERICA Last Admin: 09/04/24 06:51 Dose: 50 mls/hr Home Medications ?Medication ?Instructions ?Recorded ?Confirmed ?Last Taken ?Type cranberry 400 mg capsule 400 mg PO Q OTHER DAY 03/17/24 07/30/24 Unknown History green tea extract 500 mg capsule 500 mg PO Q OTHER DAY 03/17/24 07/30/24 Unknown History Exam Height,Weight and Vital Signs: Height 5 ft 6 in Weight 68.23 kg Last Vital Signs Temp 98.5 F 09/04/24 06:31 Pulse 52 09/04/24 06:31 Resp 20 09/04/24 06:31 BP 134/67 09/04/24 06:31 Pulse Ox 97 09/04/24 06:31 O2 Del Method Room Air 09/04/24 06:31 Airway Mallampati Class: II TM Dist: >3cm Neck ROM: Full Heart: RRR Lungs: CTA Assessment and Plan Assessment Anesthesia Assessment: Anesthesia Plan Discussed Final Anesthetic Review Family History of Problems with Anesthesia: No History of Problems with Anesthesia: No NPO: Yes ASA Class: II Final Preanesthetic Review: Meds/Allgs Chart Reviewed, Consent Obtained/Reviewed and Anes Risks/Benef Reviewed Patient Risk: Low Procedure Risk: Low Anesthetic Plan Anesthetic Plan: MAC: Disposition: Standard PACU
--- NOTE | 2024-09-04 07:28 | P.HPSUR_ITS ---
Pre-Procedural Eval Section A - 24 Hr Update-Section A only Date of Service: 09/04/24 Section B - Complete if H&P > 30 days Chief Complaint: Encounter for screening for malignant neoplasm of Details of Present Illness: see H&P no changes Relevant Family History (Specify if Yes): No Relevant Social History: None Present Medications: see Short Stay Collaborative assessment Medical History: No relevant PMH History of Previous Operations: No relevant previous surgery Allergies: Allergies Allergy/AdvReac Type Severity Reaction Status Date / Time No Known Allergies Allergy Verified 05/16/24 09:11 Review of Systems Sugical H&P ROS: Negative: Constitution, Cardiovascular, Respiratory, Neurological, Psychiatric, Hem-Onc, Allergic/Immunologic, Gastrointestinal, Genitourinary, Musculoskeletal, Integumentary, Endocrine and Eyes/Ears/No se/Throat Exam Surgical H&P Exam: Normal: HEENT, Normal: Heart, Normal: Lungs, Normal: Extremities, Normal: Abdomen, Normal: Skin and Normal: Neurological Plan Diagnosis/Plan: Unchanged I have reviewed the history and physical and performed a pertinent physical examination on my patient. No changes have occurred unless specified. Time Spent With Patient Time: Total time managing care of this patient today ____ minutes.
[2024-09-04 08:16] VITALS: BP 91/46; PULSE 63; RESP 16; TEMP 36.1; O2SAT 97
--- NOTE | 2024-09-04 08:26 | OP_ITS ---
DATE OF SERVICE: 09/04/2024 SURGEON: Dakota Howell MD INDICATIONS: Colon cancer screening. PREOPERATIVE DIAGNOSIS: POSTOPERATIVE DIAGNOSIS: PROCEDURE PERFORMED: Colonoscopy to the terminal ileum. ESTIMATED BLOOD LOSS: COMPLICATIONS: ANESTHESIA: Monitored anesthesia care. ASSISTANTS: SPECIMENS: DESCRIPTION OF PROCEDURE: History and physical performed, the risks and benefits of procedure were explained to the patient. Informed consent was obtained. The patient was placed in the left lateral decubitus position. A digital rectal exam was performed and was found to be normal. The Olympus pediatric video colonoscope was introduced into the rectum and advanced to the cecum. The cecum was identified by transillumination, palpation, and identification of ileocecal valve. Examination was performed. The scope was removed. He tolerated the procedure well and was returned to recovery in stable condition. FINDINGS: The terminal ileum was examined and appeared normal. The visualized colonic mucosa was normal. The quality of prep was good. No polyps were identified. There was mild sigmoid diverticulosis. Retroflexed examination showed moderate-sized internal hemorrhoids. IMPRESSION: Normal colonoscopy. RECOMMENDATION: 1. Follow up as needed. 2. Repeat colonoscopy is recommended in 10 years for average-risk individuals. This will be optional based on the patient's age. MD TENA Chavez/ROXANA / [phone]
[2024-09-04 08:31] VITALS: BP 123/63; PULSE 55; RESP 18; TEMP 36.1; O2SAT 98
--- NOTE | 2024-09-04 09:14 | HO.POSTANES ---
Post Anesthesia Evaluation Post Anesthesia Evaluation Date of Service: 09/04/24 Vital Signs: Vital Signs Temp Pulse Resp BP Pulse Ox O2 Del Method 09/04/24 08:31 97 F 55 18 123/63 98 Room Air 09/04/24 08:16 97 F 63 16 91/46 L 97 Room Air 09/04/24 06:31 98.5 F 52 20 134/67 97 Room Air Anesthesia: Monitored Mental Status: Awake Pain Control: Satisfactory Nausea/Vomiting: None Hydration: Adequate Anesthesia-Related Issues: No Anes. Related Issues
== END 2024-09-04 08:57 | disposition home or self-care (01) ==
PROVIDERS: PCP Internal Medicine; Visit Provider Internal Medicine Gastroenterology
PROC: 0DJD8ZZ Inspection of Lower Intestinal Tract, Via Natural or Artificial Opening Endoscopic (ICD-10-PCS; CPT 45378; principal; 2024-09-04 07:30)
DX: Z12.11 Encounter for screening for malignant neoplasm of colon (principal); Z86.0101 Personal history of adenomatous and serrated colon polyps; K57.30 Diverticulosis of large intestine without perforation or abscess without bleeding; K64.8 Other hemorrhoids; R97.20 Elevated prostate specific antigen [PSA]; R55 Syncope and collapse; Z87.891 Personal history of nicotine dependence
CPT/HCPCS: G0105; J2003; J2704

== ENCOUNTER 2024-11-02 09:54 | Outpatient (REF) | payer MEDICARE, OTHER, SELFPAY ==
--- NOTE | ~2024-11-02 | US_ITS ---
CLINICAL HISTORY: R39.12 - Poor urinary stream US Urinary Bladder Comparison: None Findings: The urinary bladder is unremarkable. Prevoid volume: 133 mLPostvoid volume: 96.6 mL Ureteral jets are visualized bilaterally. The prostate is enlarged measuring approximately 51 mL in volume. IMPRESSION: 1. significant postvoid residual. 2. Enlarged prostate. This document has been electronically signed by: Clarke Rock MD on 11/05/2024 12:25:32
--- OUTSIDE RECORDS SUMMARY | 2024-11-02 10:00 | XMS_ITS ---
Author Organization [facility] Address [address] [place] [address] Care Team Providers Care Barrel Burner Name Role Phone Darryl Bone MD Primary Care Provider UnavailDakota Priest Jr REASON FOR VISIT please lock 06-27-2024 office note Encounters Encounter Location Date Provider Diagnosis [facility] [address] [place] [address] 08/08/2024 Dakota Howell Jr PLAN OF TREATMENT No Information
--- OUTSIDE RECORDS SUMMARY | 2024-11-02 10:01 | XMS_ITS ---
Author Organization [facility] Address [address] [place] [address] Care Team Providers Care Placement Secretary Name Role Phone Darryl Bone MD Primary Care Provider Dakota Corrales Jr Unavailable [phone] ALLERGIES No Known Allergies REASON FOR VISIT Tequila is seen today in consultation SOCIAL HISTORY Tobacco Use: Social History Observation Description Date Details (start date - stop date) Former Smoker NA - NA Sex Assigned At : Social History Observation Description Sex Assigned At Unknown Tobacco Use/Smoking Question Answer Notes Patient is a former smoker How long has it been since you last smoked? 5-10 years Alcohol Screen Question Answer Notes Did you have a drink contain ing alcohol in the past year? Yes How often did you have a dri nk containing alcohol in the past year? Monthly or less (1 point) How many drinks did you have on a typical day when you were drinking in the past year? 1 or 2 drinks (0 point) How often did you have 6 or more drinks on one occasion in the past year? Never (0 point) Points 1 Interpretation Negative PROBLEMS Problem Type ICD Code Onset Dates Problem Status W/U Status Risk SNOMED Code Notes Problem Syncope, unspecified syncope type (R55) Active confirmed [id number] VITAL SIGNS BMI 24.05 kg/m2 06/27/2024 Blood pressure systolic 00 mm Hg 06/27/20 24 Blood pressure diastolic 00 mm Hg 024 Height 66 in 06/27/2024 Weight 149 lbs 06/27/2024 Encounters Encounter Location Date Provider Diagnosis [facility] [address] [place] [address] 06/27/2024 Dakota Howell Jr Colon cancer screening Z12.11 and Syncope, unspecified syncope type R55 ASSESSMENTS Encounter Date Diagnosis Assessment Notes Treatment Notes Treatment Clinical Notes 06/27/2024 Colon cancer screening (ICD-10 - Z12.11) Colonoscopy material was printed 06/27/2024 Syncope, unspecified syncope type (ICD-10 - R55) PLAN OF TREATMENT Treatment Notes Assessment Notes Colon cancer screening Colonoscopy mater ial was printed Future Test Test Name Order Date COLONOSCOPY 06/27/2024 Next Appt Details Follow Up: 1 Year, Reason: Progress Notes * Examination Category Sub-Category Detail Notes General Examination GENERAL APPEARANCE: in no ac ramana distress HEAD: normocephalic EYES: sclera non-icteric NECK/THYROID: no lymphadenopathy HEART: S1, S2 normal, no mu rmurs CHEST: normal shape and exp ansion LUNGS: clear to auscultatio n bilaterally ABDOMEN: soft, nontender, non distended, bowel sounds present, no organomegaly SKIN: anicteric EXTREMITIES: no clubbing, cyanosi s, or edema PSYCH: cognitive function i ntact ORAL CAVITY: mucosa moist
--- OUTSIDE RECORDS SUMMARY | 2024-11-02 10:01 | XMS_ITS | Patient Health Record ---
Author Organization [facility] Address [address] [place] [address] Care Team Providers Care Captain'S Assistant Name Role Phone Darryl Bone MD Primary Care Provider Dakota Corrales Jr Unavailable ALLERGIES No Known Allergies REASON FOR REFERRAL No Information SOCIAL HISTORY Tobacco Use: Social History Observation [...] W/U Status Risk SNOMED Code Notes Problem Colon cancer screening (Z12.11) Active confirmed 349839818 Problem Syncope, unspecified syncope type (R55) Active confirmed [id number] VITAL SIGNS Blood pressure diastolic 00 mm Hg 06/27/2024 Height 66 in 06/27/2024 Blood pressure systolic 00 mm Hg 06/27/2024 Weight 149 lbs 06/27/2024 BMI 24.05 kg/m2 06/27/2024 Encounters Encounter Location Date Provider Diagnosis [facility] [address] [place] [address] [place] [phone] 09/04/2024 Dakota Howell Jr Colon cancer screening Z12.11 and Personal history of colonic polyps Z86.0100 [facility] [address] [place] [phone] 12/26/2023 Dakota Howell Jr [facility] [address] [place] [phone] 06/27/2024 Dakota Howell Jr Colon cancer screening Z12.11 and Syncope, unspecified syncope type R55 [facility] [address] [place] [phone] 11/16/2023 Dakota Howell Jr [facility] [address] [place] [phone] 08/08/2024 Dakota Howell Jr ASSESSMENTS Encounter Date Diagnosis Assessment Notes Treatment Notes Treatment Clinical Notes 09/04/2024 Colon cancer screening (ICD-10 - Z12.11) 09/04/2024 Personal history of colonic polyps (ICD-10 - Z86.0100) 06/27/2024 Colon cancer screening (ICD-10 - Z12.11) Colonoscopy material was printed 06/27/2024 Syncope, unspecified syncope type (ICD-10 - R55) PLAN OF TREATMENT Future Test Test Name Order Date COLONOSCOPY 02/16/2018 COLONOSCOPY 06/27/2024 Insurance Providers Payer Name Payer Address Payer Phone Subscriber Number Group Number Insured Name Patient Relationship to Insured Coverage Start Date Coverage End Date MEDICARE OF [place] [address] [place] [id number] TEQUILA VILLEDA Self - patient is the insured [employer] ([employer]) [address] [place] [address] [phone] [id number] TEQUILA VILLEDA Self - patient is the insured MEDICAL (GENERAL) HISTORY Medical History History ICD Code elevated PSA with negative biopsy Syncope Surgical History Surgery Date(Month/Year) hernia repair
--- OUTSIDE RECORDS SUMMARY | 2024-11-02 10:01 | XMS_ITS | Patient Health Record ---
[facility] Address [address] [place] [address] Care Team Providers Care Deposition Reporter Name Role Phone Darryl Bone MD Primary Care Provider UnavailBenjamin Montano Unavailable [phone] Allergies No Known Allergies Reason For Referral No Information Medications Medication SIG (Take, Route, Frequency, Duration) Notes Start Date End Date Status Feldene 20 MG 1 capsule with food Orally Once a day for 30 day(s) 07/09/2022 Active Social History Tobacco Use: Social History Observation Description Date Details (start date - stop date) Former Smoker NA - NA Tobacco Use/Smoking Question Answer Notes Are you a: former smoker Additional Findings: Tobacco Non-User Current no n-smoker Alcohol Screen Question Answer Notes Did you have a drink containing alcohol in the p ast year? Yes Points 0 Interpretation Negative Tobacco use other than smoking: Question Answer Notes Are you an other tobacco user? No Plan Of Treatment Pending Test Test Name Order Date X ray : Foot, left 3V 07/09/2022 Insurance Providers Payer Name Payer Address Payer Phone Subscriber Number Group Number Insured Name Patient Relationship to Insured Coverage Start Date Coverage End Date [facility] [address] [place] [phone] [id number] Tristan Moon Self - patient is the insured [facility] [address] [place] [address] [id number] Olivia Moon Spouse - patient is the spouse of the insured Medical (General) History Medical History History ICD Code Chicken pox Surgical History Surgery Date(Month/Year)
== END 2024-11-02 09:55 | disposition home or self-care (01) ==
LOC: HO.HMGCX 09:54
PROVIDERS: PCP Internal Medicine; Visit Provider Psychiatry & Neurology Neurology
DX: R39.12 Poor urinary stream (principal); N40.1 Benign prostatic hyperplasia with lower urinary tract symptoms; R39.14 Feeling of incomplete bladder emptying
CPT/HCPCS: 76857

== ENCOUNTER → 2024-11-02 10:00 | Outpatient (BNV) | payer MEDICARE, OTHER, SELFPAY | PROVIDERS: PCP Internal Medicine; Visit Provider Radiology Diagnostic Radiology | DX: N40.1 Benign prostatic hyperplasia with lower urinary tract symptoms (principal) | CPT/HCPCS: 76857 ==

== ENCOUNTER 2024-11-08 14:43 | Outpatient (AMB) | payer MEDICARE, OTHER, SELFPAY ==
[2024-11-08 15:41] VITALS: BP 125/72; PULSE 56; BMI 24.2
--- NOTE | 2024-11-08 15:41 | MHC.OFFVIS ---
Vital Signs 11/08/24 15:41 11/08/24 15:51 11/08/24 15:51 Height 5 ft 6 in Weight 149 lb 14.629 oz BMI 24.2 BP 125/72 124/76 130/85 Blood Pressure Location Lt brachial Lt brachial Lt brachial Position Supine Sitting Standing Pulse 56 62 65 Intake Visit Reasons: Syncope- KM pt Intake Note: Follow-up dx syncope on Tuesday passed out again Fiber Machine Tender Required: No Dietary Supervisor: Dietary Supervisor Present Accompanied by: Spouse Allergies No Known Allergies Allergy (Verified 05/16/24 09:11) Medication List - Last Reconciled 11/08/24 by Colton Ramos NP cranberry 400 mg PO Q OTHER DAY green tea extract 500 mg PO Q OTHER DAY lidocaine 4% (Lidocaine Pain Relief) 1 patch See Protocol transdermal DAILY HPI Comments Details: This is a 74-year-old male patient presenting for a follow-up. He has been seen in the office for this in the past. He was previously in the hospital after experiencing a syncopal episode causing rib fractures. The syncope at that time occurred after passing stool. Patient had an echo that showed a normal EF with IVC being collapsed, suggesting dehydration. He was advised to increase fluid intake. He also underwent 14 day Holter monitor which revealed 1 brief episode of SVT at a rate of 128 beats per minute lasting 7 beats, but no associated symptoms were noted at that time. Patient also had reported 1 episode of tunnel vision while driving which was self-limiting and did not progress to syncope. He also underwent a tilt-table test, which after administration of nitro, induced significant tachycardia, rates 170 to 180s, although the patient did not experience any dizziness or syncope. Today, the patient reports an episode last week while riding in the car, during which he suddenly passed out and regained consciousness about 10 seconds later. He denied any associated symptoms such as chest pain, shortness of breath, palpitations. However the patient also notes that he has been experiencing random right-sided chest pain for the past few days, lasting a few seconds, and it occurs both at rest and with exertion. Otherwise, patient denies any orthopnea, PND, or edema. Patient notes that his PCP has referred him to Neurology for an EEG. [facility] Medical History Elevated PSA Benign prostatic hyperplasia with lower urinary tract symptoms Surgical History History of surgery Social History Patient Tobacco Use Status: Never used Tobacco service: No Review of Systems Const Denies chills, Denies fatigue, Denies fever(s), Denies frequent falls, Denies weakness, Denies weight gain and Denies weight loss ENT Denies dizziness Card Denies chest pain, Denies leg edema, Denies lightheadedness, Denies palpitations, Denies dyspnea, Denies dyspnea on exertion, Denies orthopnea and Denies other (loss of consciousness) Resp Denies cough, Denies dyspnea and Denies dyspnea on exertion GI Denies hematochezia and Denies change in stool character Musc Denies abnormal gait, Denies muscle weakness, Denies numbness, Denies radiating pain into limb and Denies tingling Neuro Denies abnormal gait, Denies dizziness, Denies frequent falls, Denies numbness, Denies tingling and Denies weakness Endo Denies fatigue and Denies palpitations Physical Exam Vital Signs: Last Vital Signs Pulse 65 11/08/24 15:51 BP 130/85 11/08/24 15:51 BMI result Body Mass Index 24.2 Assessment & Plan Assessment & Plan (1) Syncope: Code(s): R55 - Syncope and collapse Category: Medical Plan: 03/20/2024- echo showed normal EF 60-65%, mild dilation of the sinuses of Valsalva, collapse inferior vena cava that is consistent with reduce intravascular volume. Recommended to push more fluids, refrain from caffeinated drinks. Advised to reduce drinking Gatorade daily. We will get a Holter monitor to rule out any potential arrhythmias. (2) Atypical chest pain: Code(s): R07.89 - Other chest pain Category: Medical Plan: Chest pain sounding very atypical, specially with no history of coronary artery disease. We will get a treadmill stress test to look for any ischemic changes. Follow-up after completion of these tests. In the interim, call the office with any concerns. This note was generated using voice recognition software. While every effort has been made to ensure accuracy and proper lodging house keeper, there may be occasional errors that could affect the content or meaning of the described symptoms. Orders: Orders ECG 7 day holter monitor Today R55 - Syncope and collapse Basic Metabolic Panel Today R07.89 - Other chest pain, R55 - Syncope and collapse CA stress test Today R07.89 - Other chest pain Coding Level of Care Code Est Pt Level 4 (84584) Diagnoses Syncope R55 Atypical chest pain R07.89 Time Spent (min) 31 Comment Time spent in reviewing the chart, test results, assessment, counseling and documentation.
[2024-11-08 15:51] VITALS: BP 124/76; BP 130/85; PULSE 62; PULSE 65
== END 2024-11-08 16:17 | disposition home or self-care (01) ==
PROVIDERS: PCP Internal Medicine
DX: R55 Syncope and collapse (principal); R07.89 Other chest pain
CPT/HCPCS: 99214

== ENCOUNTER → 2024-11-08 14:43 | Outpatient (BNVA) | payer MEDICARE, OTHER, SELFPAY | PROVIDERS: PCP Internal Medicine | DX: R55 Syncope and collapse (principal); R07.89 Other chest pain | CPT/HCPCS: 99212 ==

== ENCOUNTER → 2024-11-12 09:04 | Outpatient (REF) | payer MEDICARE, OTHER, SELFPAY ==
--- NOTE | 2024-11-12 09:15 | CA_ITS ---
Acquisition Time: 2024-11-12 09:35:58 Total Exercise Time: 00:07:35 Test Indications: Syncope BRADYCARDIA SVT Medications: Protocol: PARAG Max HR: 146 BPM 100% of Pred: 146 BPM Max BP: 200/86 mmHG Max Work Load: 9.4 METS Exercise Stress Test with exercise 7 mins 35 secs of Parag Protocol, achieving 98% MPHR, with reprots of lightheadedness, no chest discomfort, without any arrythmias, with hypertensive response- max BP 200/86. Without EKG changes meeting criteria for ischemia. In recovery, lightheadedness resolved and BP improved. Test reviewed with Dr. Sands. Referred By: Colton Ramos Electronically Signed By: Colton Ramos
[2024-11-12 10:56] LABS: Prostate Specific Antigen 3.81 ng/mL (<0.05-4.0)
== END ==
LOC: HO.CARD 09:04
PROVIDERS: Urology; PCP Internal Medicine
DX: R07.89 Other chest pain (principal); R55 Syncope and collapse; N40.1 Benign prostatic hyperplasia with lower urinary tract symptoms; R39.14 Feeling of incomplete bladder emptying; Z12.5 Encounter for screening for malignant neoplasm of prostate
CPT/HCPCS: 36415; 80048; 84153; 93017; 93242

== ENCOUNTER → 2024-11-12 09:15 | Outpatient (BNV) | payer MEDICARE, OTHER, SELFPAY | PROVIDERS: PCP Internal Medicine | DX: R42 Dizziness and giddiness (principal) | CPT/HCPCS: 93016; 93018 ==

== ENCOUNTER 2024-11-16 09:11 | Outpatient (AMB) | payer MEDICARE, OTHER, SELFPAY ==
--- NOTE | 2024-11-16 09:13 | A.OFFVIS_ITS ---
Intake Visit Reasons: 6m/US/PSA/PVR(set) Intake Note: Patient is present for 6M/US/PSA/ PVR Urology Medication:NONE Antibiotic Allergy:NONE Blood Thinner:NONE Todays PVR:110ML'S Molding Process Technician Required: No Allergies No Known Allergies Allergy (Verified 11/16/24 09:14) HPI Comments Details: Tristan is a very pleasant male. He is a patient of Dr. Bone. He is in for the following issues - elevated PSA - lower urinary tract symptoms Six-month follow-up PSA PSA 05/16 4.7 26%, 11/17 3.8 PVR 58 Did not actually take finasteride. Had worried about side effects. Does have a known variable PSA Repeat in six-month Elevated PSA Discussed current results Prior biopsy 2018 negative, PSA at biopsy 9 PSA 03/12 4.4, 03/13 3.4, 08/14 3.5, 09/15 7.2 18%, 11/16 3.4, 05/16 4.7 26%, 11/17 3.8 Prostate ultrasound 11/17 - 50 g Keep doing green tea extract PFS Medical History Elevated PSA Benign prostatic hyperplasia with lower urinary tract symptoms Surgical History History of surgery Social History Patient Tobacco Use Status: Never used Tobacco service: No Review of Systems Const Denies chills and Denies fever(s) Card Reports no additional complaints and Denies syncope Resp Denies cough GI Denies abdominal pain and Denies heartburn Reports as per HPI and Denies change in libido Neuro Denies syncope Psych Denies change in libido Endo Denies change in libido Physical Exam Const General: cooperative, healthy appearing, comfortable and no acute distress Orientation/consciousness: patient oriented x3 HEENT Face and sinus: Yes normal facial exam Mouth: moist mucous membranes Neck Neck: Yes normal visual inspection, Yes full ROM and Yes trachea midline Chest Chest palpation & inspection: normal inspection of the chest Resp Effort & Inspection: normal respiratory effort, able to speak in complete sentences and no respiratory distress GI Inspection: Yes normal to inspection Back/Spine/Pelvis Cervical Spine: normal cervical lordosis Thoracic/Lumbar Spine: thoracic and lumbar spine normal to inspection Skin General skin exam: no rashes or lesions noted Neuro General: patient oriented x3, gait normal, tone normal and moves all extremities Extrem General: Yes normal to inspection and Yes capillary refill normal Office Procedures Post Void Residual Post Residual Void Post Void Residual (PVR): 110 39406-Aqiv Void Residual by ultrasound Results AMB Urinalysis, Automated UA Leukoctes 0 Itzel/uL Last Edit by ELOISA Parra on 11/16/24 09:29 UA Nitrite Negative Last Edit by ELOISA Parra on 11/16/24 09:29 UA Urobilinogen 0.2 mg/dL Last Edit by ELOISA Parra on 11/16/24 09:2 9 UA Protein 15 mg/dL Last Edit by ELOISA Parra on 11/16/24 09:29 UA pH 5.5 Last Edit by ELOISA Parra on 11/16/24 09:29 UA Blood 0 Tigre/uL Last Edit by ELOISA Parra on 11/16/24 09:29 UA Specific Acworth 1.025 Last Edit by ELOISA Parra on 11/16/24 09: 29 UA Ketone Negative Last Edit by ELOISA Parra on 11/16/24 09:29 UA Bilirubin 0 mg/dL Last Edit by ELOISA Parra on 11/16/24 09:29 UA Glucose 0 mg/dL Last Edit by ELOISA Parra on 11/16/24 09:29 Results Reviewed Results Reviewed: Laboratory Last Values Urine pH (Auto) 5.5 11/16/24 09:28 Specific Acworth (Auto) 1.025 11/16/24 09:28 Urine Protein (Auto) 15 mg/dL 11/16/24 09:28 Glucose (UA)(Auto) 0 mg/dL 11/16/24 09:28 Urine Ketones (Auto) Negative 11/16/24 09:28 Urine Blood (Auto) 0 Tigre/uL 11/16/24 09:28 Urine Nitrite (Auto) Negative 11/16/24 09:28 Urine Bilirubin (Auto) 0 mg/dL 01/24/25 09:28 Urine Urobilinogen (Auto) 0.2 mg/dL 11/16/24 09:28 Leukocyte Esterase (Auto) 0 Itzel/uL 11/16/24 09:28 Assessment & Plan Assessment & Plan (1) Benign prostatic hyperplasia with lower urinary tract symptoms: Code(s): N40.1 - Benign prostatic hyperplasia with lower urinary tract symptoms Category: Medical Qualifiers: Lower urinary tract symptom detail: incomplete bladder emptying Qualified Code(s): N40.1 - Benign prostatic hyperplasia with lower urinary tract symptoms; R39.14 - Feeling of incomplete bladder emptying (2) Elevated PSA: Code(s): R97.20 - Elevated prostate specific antigen [PSA] Category: Medical Plan Six-month follow-up PSA Orders: Orders AMB Urinalysis Automated Today Z13.9 - Encounter for screening, unspecified Prostate Specific Antigen 6 Months R97.20 - Elevated prostate specific antigen [PSA] Patient Instructions: Imaging studies, laboratory and physical exam results were discussed and reviewed in detail. No major barriers to patient understanding were identified. An opportunity to ask questions regarding the treatment plan was provided. All questions were answered. The patient expressed understanding and agreement with the above treatment plan. The patient is aware they should contact our office by phone for worsening of their current condition or the appearance of new urologic symptoms. Compliance is encouraged with any medications and followup testing that is ordered. It is a privilege to participate in the urologic care of your patient. If you have any questions or concerns regarding treatment for the above conditions, or other urologic issues, please do not hesitate to contact me. The office telephone contact is [phone]. This note is constructed using voice recognition software. While every effort has been made to ensure accuracy pipe cleaning machine operator errors may have been included. Yours sincerely, Dr Bentley Torres MD, [facility] - Urology Providers of Expert, Compassionate Care for the Genitourinary System Coding Level of Care Code Est Pt Level 3 (12244) Diagnoses Benign prostatic hyperplasia with incomplete bladder emptying N40.1; R39.14 Lower urinary tract symptom detail: incomplete bladder emptying Elevated PSA R97.20 CPT Codes Post Residual Void - PVR CPT Code: 76058-Zuow Void Residual by ultrasound ([id number])
== END 2024-11-16 10:06 | disposition home or self-care (01) ==
PROVIDERS: PCP Internal Medicine; Visit Provider Urology
DX: N40.1 Benign prostatic hyperplasia with lower urinary tract symptoms (principal); R39.14 Feeling of incomplete bladder emptying; R97.20 Elevated prostate specific antigen [PSA]; Z13.9 Encounter for screening, unspecified
CPT/HCPCS: 99213

== ENCOUNTER → 2024-11-16 09:11 | Outpatient (BNVA) | payer MEDICARE, OTHER, SELFPAY | PROVIDERS: PCP Internal Medicine; Visit Provider Urology | DX: N40.1 Benign prostatic hyperplasia with lower urinary tract symptoms (principal); R39.14 Feeling of incomplete bladder emptying; R97.20 Elevated prostate specific antigen [PSA] | CPT/HCPCS: 51798; 81003; 99212 ==

== ENCOUNTER 2024-11-28 11:48 | Outpatient (REF) | payer MEDICARE, OTHER, SELFPAY ==
[2024-11-28 13:06] LABS: Anion Gap 12 (12-20); Blood Urea Nitrogen 10 mg/dL (9-16); Calcium 9.1 mg/dL (8.4-10.2); Carbon Dioxide 26 mmol/L (22-29); Chloride 108 mmol/L (96-108); Estimated Glomerular Filt Rate > 60; Glucose Random 94 mg/dL (60-115); Potassium 5.8 mmol/L (3.3-5.1); Sodium 140 mmol/L (135-145)
== END 2024-11-28 11:49 | disposition home or self-care (01) ==
LOC: HO.LAB 11:48
PROVIDERS: PCP Internal Medicine
DX: R07.89 Other chest pain (principal); R55 Syncope and collapse
CPT/HCPCS: 36415; 80048

== ENCOUNTER 2025-03-06 15:15 | Outpatient (AMB) | payer MEDICARE, OTHER, SELFPAY ==
[2025-03-06 14:20] VITALS: BP 132/80; PULSE 59; TEMP 36.2; O2SAT 98; BMI 23.9
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
--- OUTSIDE RECORDS SUMMARY | 2025-03-06 15:19 | XMS_ITS ---
Author Organization [facility] Address [address] [place] [address] Care Team Providers Care Wildlife Forensic Geneticist Name Role Phone Lizandro BEARD, Darryl Primary Care Provider Dakota Corrales Jr REASON FOR VISIT screening Encounters Encounter Location Date Provider Diagnosis [facility] [address] [place] [id number] 09/04/2024 Dakota Howell Jr Colon cancer screening Z12.11 and Personal history of colonic polyps Z86.0100 Assessments Encounter Date Diagnosis (ICD Code) Assessment Notes Treatment Notes Treatment Clinical Notes Section Notes 09/04/2024 Colon cancer screening (ICD-10 - Z12.11) 09/04/2024 Personal history of colonic polyps (ICD-10 - Z86.0100) Plan Of Treatment No Information Progress Notes * TEQUILA HERNANDEZ ADOB:[birth year] (74 yo M)Acc No.[id number]:09/04/2024 COLON WITH MAC Patient:?TEQUILA HERNANDEZ Provider:?Dakota Howell MD :1950???Age:74 Y???Sex:Male Jose e:09/04/2024 Address:[address] [place], [place] [id number] Pcp:Darryl Bone MD Subjective: * Chief Complaints: * ???1. Screening. * Medical History:? Objective: * Vitals:? Assessment: * Assessment: 1.?Colon cancer screening - Z12.11 (Primary)???2.?Personal history of colonic polyps - Z86.0100??? Plan: * Treatment: * Procedure Codes:?G0105 COLOR EC CANCR SCR; COLNSCPY HI RISK, 80277 DIAGNOSTIC COLONOSCOPY, 0529F INTRVL 3+YRS PTS CLNSCP DOCD, 0528F RCMND FLW-UP 10 YRS DOCD * * The named appointment provid er may or may not be the originator of this progress note, and it is not deemed complete until electronically signed by the appointment provider. Sign off status: Pending * Provider:?Dakota Howell MD Date:?1 11/04/2023 Generated for Celena neri/Rashaun/Bisiitting on:?03/06/2025 03:19 PM EDT
--- OUTSIDE RECORDS SUMMARY | 2025-03-06 15:19 | XMS_ITS | Patient Health Record ---
[facility] Address [address] [place] [address] Care Team Providers Care Pick Up Man Name Role Phone Darryl Bone MD Primary Care Provider UnavailBenjamin Montano Unavailable [phone] Allergies No Known Allergies Reason For Referral [...] Start Date Coverage End Date Medicare [facility] [address] [place] [id number] Tristan Moon Self - patient is the insured [facility] [address] [place] [address] [id number] Olivia Moon Spouse - patient is the spouse of the insured Medical (General) History Medical History History ICD Code Chicken pox Surgical History Surgery Date(Month/Year)
--- OUTSIDE RECORDS SUMMARY | 2025-03-06 15:19 | XMS_ITS | Patient Health Record ---
Author Organization [facility] Address [address] [place] [address] Care Team Providers Care Collar Runner Name Role Phone Darryl Bone MD Primary Care Provider Dakota Corrales Jr Allergies No Known Allergies Reason For Referral No Information Social History Tobacco Use: Social History Observation Description Date Details (start date - stop date) Former Smoker NA - NA Tobacco Use/Smoking Question Answer Notes Patient is [...] Never (0 point) Points 1 Interpretation Negative Problems Problem Type SNOMED Code ICD Code Onset Dates Problem Status W/U Status Risk Notes Problem 993667991 Colon cancer screening (Z12.11) Active confirmed Problem 283967090 Syncope, unspecified syncope type (R55) Active confirmed Vital Signs Blood pressure diastolic 00 mm Hg 06/27/2024 Height 66 in 06/27/2024 Blood pressure systolic 00 mm Hg 06/27/2024 Weight 149 lbs 06/27/2024 BMI 24.05 kg/m2 06/27/2024 Encounters Encounter Location Date Provider Diagnosis [facility] Out[place] [address] [place] [id number] 09/04/2024 Dakota Howell Jr Colon cancer screening Z12.11 and Personal history of colonic polyps Z86.0100 [facility] [address] [place] [address] 06/27/2024 Dakota Howell Jr Colon cancer screening Z12.11 and Syncope, unspecified syncope type R55 [facility] [address] [place] [phone] 08/08/2024 Dakota Howell Jr Assessments Encounter Date Diagnosis (ICD Code) Assessment Notes Treatment Notes Treatment Clinical Notes Section Notes 09/04/2024 Colon cancer screening (ICD-10 - Z12.11) 09/04/2024 Personal history of colonic polyps (ICD-10 - Z86.0100) 06/27/2024 Colon cancer screening (ICD-10 - Z12.11) Colonoscopy material was printed We discussed colonoscopy today. We discussed risks and benefits of the procedure today. He understands these and agrees to proceed. He is advised to followup with his manager of financial prior to the procedure because of his history of syncope. 06/27/2024 Syncope, unspecified syncope type (ICD-10 - R55) We discussed colonoscopy today. We discussed risks and benefits of the procedure today. He understands these and agrees to proceed. He is advised to followup with his manager of financial prior to the procedure because of his history of syncope. Plan Of Treatment Future Test Test Name Order Date COLONOSCOPY 02/16/2018 COLONOSCOPY 06/27/2024 Insurance Providers Payer Name Payer Address Payer Phone Subscriber Number Group Number Insured Name Patient Relationship to Insured Coverage Start Date Coverage End Date MEDICARE [place] [address] [place] [id number] TEQUILA VILLEDA Self - patient is the insured [employer] ([employer]) [address] [place] [address] [phone] [id number] TEQUILA VILLEDA Self - patient is the insured Medical (General) History Medical History History ICD Code elevated PSA with negative biopsy Syncope Surgical History Surgery Date(Month/Year) hernia repair
--- OUTSIDE RECORDS SUMMARY | 2025-03-06 15:19 | XMS_ITS ---
Author Organization [facility] Address [address] [place] [phone] Care Team Providers Care Digital Sales Executive Name Role Phone Darryl Bone MD Primary Care Provider Dakota Corrales Jr [phone] REASON FOR VISIT please lock 06-27-2024 office note Encounters Encounter Location Date Provider Diagnosis [facility] [address] [place] [phone] 08/08/2024 Dakota Howell Jr Plan Of Treatment No Information Progress Notes * TEQUILA HERNANDEZ ADOB:[birth year] (74 yo M)Acc No.[id number]:08/08/2024 Patient:?TEQUILA HERNANDEZ :1950???Age:74 Y???Sex:Male Address:[address] [place] [phone] * true * Date:? Generated for Greggi halle/Rashaun/eTransmitting on:?03/06/2025 03:19 PM EDT
--- OUTSIDE RECORDS SUMMARY | 2025-03-06 15:20 | XMS_ITS ---
Author Organization [facility] Address [address] [place] [address] Care Team Providers Care Food And Drug Research Scientist Name Role Phone Darryl Bone MD Primary Care Provider Dakota Corrales Jr [phone] Allergies No Known Allergies REASON FOR VISIT Tequila is seen today in consultation Social History Tobacco Use: Social History Observation [...] Problem Status W/U Status Risk Notes Problem 622713236 Syncope, unspecified syncope type (R55) Active confirmed Vital Signs Blood pressure systolic 00 mm Hg 06/27/20 24 Blood pressure diastolic 00 mm Hg 024 Height 66 in 06/27/2024 Weight 149 lbs 06/27/2024 BMI 24.05 kg/m2 06/27/2024 Encounters Encounter Location Date Provider Diagnosis [facility] [address] [place] [phone] 06/27/2024 Dakota Howell Jr Colon cancer screening Z12.11 and Syncope, unspecified syncope type R55 Assessments Encounter Date Diagnosis (ICD Code) Assessment Notes Treatment Notes Treatment Clinical Notes Section Notes 06/27/2024 Colon cancer screening (ICD-10 - Z12.11) Colonoscopy material was printed We discussed colonoscopy today. We discussed risks and benefits of the procedure today. He understands these and agrees to proceed. He is advised to followup with his correspondence renew clerk prior to the procedure because of his history of syncope. 06/27/2024 Syncope, unspecified syncope type (ICD-10 - R55) We discussed colonoscopy today. We discussed risks and benefits of the procedure today. He understands these and agrees to proceed. He is advised to followup with his correspondence renew clerk prior to the procedure because of his history of syncope. Plan Of Treatment Treatment Notes Assessment Notes Colon cancer screening Colonoscopy mater ial was printed Future Test Test Name Order Date COLONOSCOPY 06/27/2024 Next Appt Details Follow Up: 1 Year, Reason: Progress Notes * TEQUILA HERNANDEZ ADOB:[birth year] (74 yo M)Acc No.[id number]:06/27/2024 Progress Notes Patient:?TEQUILA HERNANDEZ Provider:?Dakota Howell MD :1950???Age:74 Y???Sex:Male Jose e:06/27/2024 Address:[address] [place] [address] Pcp:Darryl Bone MD Subjective: * Chief Complaints: * ???1. Tequila is seen today in consultation. * HPI: ???New symptom(s):? Tequila is a pleasant 74-year-old man seen today in consultation. He has a history of syncope currently under evaluation by his correspondence renew clerk. Etiology is unclear. He has no complaints of rectal bleeding or change in his bowel habits. Colonoscopy in 2018 showed no polyps. He does have a prior history of adenomatous colon polyps. Five-year followup was recommended. * ROS:?General/Constitutional:?Change in appetite?denies.?Fatigue?denies.?ENT:?Patient denies?difficulty swallowing.?Respiratory:?Patient denies?shortness of breath.?Cardiovascular:?Patient denies?chest pain.?Gastrointestinal:?Comments?See HPI for details.?Genitourinary:?Difficulty urinating?denies.?Incontinence?denies.?Musculoskeletal:?Patient denies?muscle aches.?Skin:?Patient denies?pruritis.?Neurologic:?Patient denies?low back pain.?Psychiatric:?Patient denies?mental or physical abuse.? * Medical History:?elevated PS A with negative biopsy, Syncope. * Surgical History:?hernia rep air . * Family History:?Father: dece ased.?Mother: .? no known hx of colon cancer polyps or liver ds. * Social History:?Tobacco Use:?Tobacco Use/Smoking?Patient is a?former smoker,?How long has it been since you last smoked??5-10 years.?Drugs/Alcohol:?Alcohol Screen?Did you have a drink containing alcohol in the past year??Yes,?How often did you have a drink containing alcohol in the past year??Monthly or less (1 point), How many drinks did you have on a typical day when you were drinking in the past year??1 or 2 drinks (0 point),?How often did you have 6 or more drinks on one occasion in the past year??Never (0 point),?Points?1,?Interpretation?Negative.?Miscellaneous:?Marital status: . Occupation: retired. * Medications:?Discontinued Co lyte with Flavor Packs 240 GM Solution Reconstituted As directed Orally Over the specified time., Medication List reviewed and reconciled with the patient * Allergies:?N.K.D.A. Objective: * Vitals:?Wt: 149 lbs, Ht: 66 in, BMI:24.05 Index, BP: 00/00 mm Hg. * Examination: ???General Examination: ?GENERAL APPEARANCE:?in no acute distress.?HEAD:?normocephalic.?EYES:?sclera non-icteric.?ORAL CAVITY:?mucosa moist.?NECK/THYROID:?no lymphadenopathy.?SKIN:?anicteric.?HEART:?S1, S2 normal, no murmurs.?LUNGS:?clear to auscultation bilaterally.?CHEST:?normal shape and expansion.?ABDOMEN:?soft, nontender, nondistended, bowel sounds present, no organomegaly .?EXTREMITIES:?no clubbing, cyanosis, or edema.?PSYCH:?cognitive function intact.? Assessment: * Assessment: 1.?Syncope, unspecified sync ope type - R55 (Primary)?2.?Colon cancer screening - Z12.11? We discussed colonoscopy tod ay. We discussed risks and benefits of the procedure today. He understands these and agrees to proceed. He is advised to followup with his correspondence renew clerk prior to the procedure because of his history of syncope. Plan: * Treatment: * Procedure Codes:?3017F COLOR ECTAL CA SCREEN DOC REV, G9903 Pt scrn tbco id as non user, G9745 DOC RSN FOR NOT SCREEN/REC F/U HBP * Preventive Medicine:? ??Screenings:?Fall Risk Screening?Fall Risk Assessment:?Two or more falls without injury in the past year passed out,?Plan of Care:?Documented,?Type of fall plan of care:?Balance, strength and gait training or instruction provided.? * Follow Up:?1 Year * * Sign off status: Completed true * Provider:?Dakota Howell MD Date:?0 06/27/2024 Generated for Celena neri/Rashaun/eTransmitting on:?03/06/2025 03:19 PM EDT History and Physical Notes * HPI (History of Present Illness) Category Sub-Category Detail Notes Category Not es New symptom(s) Tequila is a pl easant 74-year-old man seen today in consultation. He has a history of syncope currently under evaluation by his correspondence renew clerk. Etiology is unclear. He has no complaints of rectal bleeding or change in his bowel habits. Colonoscopy in 2018 showed no polyps. He does have a prior history of adenomatous colon polyps. Five-year followup was recommended. Examination Category Sub-Category Detail Notes Category Not es General Examination GENERAL APPEARANCE: in no acute di stress HEAD: normocephalic EYES: sclera non-icteric NECK/THYROID: no lymphadenopathy HEART: S1, S2 normal, no mu rmurs CHEST: normal shape and exp ansion LUNGS: clear to auscultatio n bilaterally ABDOMEN: soft, nontender, non distended, bowel sounds present, no organomegaly SKIN: anicteric EXTREMITIES: no clubbing, cyanosi s, or edema PSYCH: cognitive function i ntact ORAL CAVITY: mucosa moist
== END 2025-03-06 16:08 | disposition home or self-care (01) ==
LOC: HO.HMCHD 15:16
PROVIDERS: PCP Internal Medicine; Visit Provider Internal Medicine
DX: R55 Syncope and collapse (principal)

== ENCOUNTER → 2025-03-06 15:15 | Outpatient (BNVA) | payer MEDICARE, OTHER, SELFPAY | PROVIDERS: PCP Internal Medicine; Visit Provider Internal Medicine | DX: R55 Syncope and collapse (principal) | CPT/HCPCS: 99202 ==

== ENCOUNTER 2025-03-08 08:15 | Outpatient (REF) | payer MEDICARE, OTHER, SELFPAY ==
--- OUTSIDE RECORDS SUMMARY | 2025-03-08 08:27 | XMS_ITS ---
Author Organization [facility] Address [address] [place] [phone] Care Team Providers Care Mailer Name Role Phone Darryl Bone MD Primary Care Provider Dakota Corrales Jr REASON FOR VISIT please lock 06-27-2024 office note Encounters Encounter Location Date Provider Diagnosis [facility] [address] [place] [phone] 08/08/2024 Dakota Howell Jr Plan Of Treatment No Information Progress Notes * TEQUILA HERNANDEZ ADOB:[birth year] (74 yo M)Acc No.[id number]:08/08/2024 Patient:?TEQUILA HERNANDEZ :1950???Age:74 Y???Sex:Male Address:[address] [place] [address] * true * Date:? Generated for Greggi halle/Rashaun/eTransmitting on:?03/08/2025 08:27 AM EDT
--- OUTSIDE RECORDS SUMMARY | 2025-03-08 08:27 | XMS_ITS ---
Author Organization [facility] Address [address] [place] [address] Care Team Providers Care Manager Of International Name Role Phone Lizandro BEARD, Darryl Primary Care Provider Dakota Corrales Jr REASON FOR VISIT screening Encounters Encounter Location Date Provider Diagnosis [facility] Outpatient [address] [place] [phone] 09/04/2024 Dakota Howell Jr Colon cancer screening Z12.11 and Personal history of colonic polyps Z86.0100 Assessments Encounter Date Diagnosis (ICD Code) Assessment Notes Treatment Notes Treatment Clinical Notes Section Notes 09/04/2024 Colon cancer screening (ICD-10 - Z12.11) 09/04/2024 Personal history of colonic polyps (ICD-10 - Z86.0100) Plan Of Treatment No Information Progress Notes * TEQUILA HERNANDEZ ADOB:[birth year] (74 yo M)Acc No.[id number]:09/04/2024 COLON WITH MAC Patient:?TEQUILA HERNANDEZ Provider:?Dakota Howell MD :1950???Age:74 Y???Sex:Male Jose e:09/04/2024 Address:[address] [place], [place] [id number] Pcp:Darryl Bone MD Subjective: * Chief Complaints: * ???1. Screening. * Medical History:? Objective: * Vitals:? Assessment: * Assessment: 1.?Colon cancer screening - Z12.11 (Primary)???2.?Personal history of colonic polyps - Z86.0100??? Plan: * Treatment: * Procedure Codes:?G0105 COLOR EC CANCR SCR; COLNSCPY HI RISK, 04251 DIAGNOSTIC COLONOSCOPY, 0529F INTRVL 3+YRS PTS CLNSCP DOCD, 0528F RCMND FLW-UP 10 YRS DOCD * * The named appointment provid er may or may not be the originator of this progress note, and it is not deemed complete until electronically signed by the appointment provider. Sign off status: Pending * Provider:?Dakota Howell MD Date:?1 11/04/2023 Generated for Celena neri/Rashaun/Bisiitting on:?03/08/2025 08:27 AM EDT
--- OUTSIDE RECORDS SUMMARY | 2025-03-08 08:27 | XMS_ITS | Patient Health Record ---
Author Organization [facility] Address [address] [place] [phone] Care Team Providers Care Publicity Expert Name Role Phone Darryl Bone MD Primary Care Provider UnavailBenjamin Montano Unavailable [phone] Allergies No Known Allergies Reason For Referral [...] Start Date Coverage End Date Medicare [facility] [address] [place] [id number] Tristan Moon Self - patient is the insured [facility] [address] [place] [address] [id number] Olivia Moon Spouse - patient is the spouse of the insured Medical (General) History Medical History History ICD Code Chicken pox Surgical History Surgery Date(Month/Year)
--- OUTSIDE RECORDS SUMMARY | 2025-03-08 08:28 | XMS_ITS | Patient Health Record ---
Author Organization [facility] Address [address] [place] [address] Care Team Providers Care Washateria Attendant Name Role Phone Darryl Bone MD Primary [...] Problem Status W/U Status Risk Notes Problem [id number] Colon cancer screening (Z12.11) Active confirmed Problem [id number] Syncope, unspecified syncope type (R55) Active confirmed Vital Signs Blood pressure diastolic 00 mm Hg 06/27/2024 Height 66 in 06/27/2024 Blood pressure systolic 00 mm Hg 06/27/2024 Weight 149 lbs 06/27/2024 BMI 24.05 kg/m2 06/27/2024 Encounters Encounter Location Date Provider Diagnosis [facility] Outpatient [address] [place] [phone] 09/04/2024 Dakota Howell Jr Colon cancer screening Z12.11 and Personal history of colonic polyps Z86.0100 [facility] [address] [place] [address] 06/27/2024 Dakota Howell Jr Colon cancer screening Z12.11 and Syncope, unspecified syncope type R55 [facility] [address] [place] [phone] 08/08/2024 Dakota Howell Jr Assessments Encounter Date [...] He is advised to followup with his city surveyor prior to the procedure because of his history of syncope. 06/27/2024 Syncope, unspecified syncope type (ICD-10 - R55) We discussed colonoscopy today. We discussed risks and benefits of the procedure today. He understands these and agrees to proceed. He is advised to followup with his city surveyor prior to the procedure because of his history of syncope. Plan Of Treatment Future Test Test Name Order Date COLONOSCOPY 02/16/2018 COLONOSCOPY 06/27/2024 Insurance Providers Payer Name Payer Address Payer Phone Subscriber Number Group Number Insured Name Patient Relationship to Insured Coverage Start Date Coverage End Date MEDICARE [place] [address] [place] [id number] TEQUILA VILLEDA Self - patient is the insured [employer] ([employer]) [address] [place] [id number] TEQUILA VILLEDA Self - patient is the insured Medical (General) History Medical History History ICD Code elevated PSA with negative biopsy Syncope Surgical History Surgery Date(Month/Year) hernia repair
--- OUTSIDE RECORDS SUMMARY | 2025-03-08 08:29 | XMS_ITS ---
Author Organization [facility] Address [address] [place] [address] Care Team Providers Care Professor Of Food Biochemistry Name Role Phone Darryl Bone MD Primary Care Provider Dakota Corrales Jr [phone] Allergies No Known Allergies REASON FOR VISIT [...] Problem Status W/U Status Risk Notes Problem [id number] Syncope, unspecified syncope type (R55) Active confirmed Vital Signs Blood pressure systolic 00 mm Hg 06/27/20 24 Blood pressure diastolic 00 mm Hg 024 Height 66 in 06/27/2024 Weight 149 lbs 06/27/2024 BMI 24.05 kg/m2 06/27/2024 Encounters Encounter Location Date Provider Diagnosis [facility] [address] [place] [phone] 06/27/2024 Dakota Howell Jr Colon cancer screening [...] He is advised to followup with his legal intern prior to the procedure because of his history of syncope. 06/27/2024 Syncope, unspecified syncope type (ICD-10 - R55) We discussed colonoscopy today. We discussed risks and benefits of the procedure today. He understands these and agrees to proceed. He is advised to followup with his legal intern prior to the procedure because of his history of syncope. Plan Of Treatment Treatment Notes Assessment Notes Colon cancer screening Colonoscopy mater ial was printed Future Test Test Name Order Date COLONOSCOPY 06/27/2024 Next Appt Details Follow Up: 1 Year, Reason: Progress Notes * TEQIULA HERNANDEZ ADOB:[birth year] (74 yo M)Acc No.[id number]:06/27/2024 Progress Notes Patient:?TEQUILA HERNANDEZ Provider:?Dakota Howell MD :1950???Age:74 Y???Sex:Male Jose e:06/27/2024 Address:[address] [place] [address] Pcp:Darryl Bone MD Subjective: * Chief Complaints: * ???1. Tequila is seen today in consultation. * HPI: ???New symptom(s):? Tequila is a pleasant 74-year-old man seen today in consultation. He has a history of syncope currently under evaluation by his legal intern. Etiology is unclear. He has no complaints [...] He is advised to followup with his legal intern prior to the procedure because of his [...] MD Date:?0 06/27/2024 Generated for Celena neri/Rashaun/eTransmitting on:?03/08/2025 08:28 AM EDT History and Physical Notes * HPI (History of Present Illness) Category Sub-Category Detail Notes Category Not es New symptom(s) Tequila is a pl easant 74-year-old man seen today in consultation. He has a history of syncope currently under evaluation by his legal intern. Etiology is unclear. He has no complaints [...]
[2025-03-08 10:00] LABS: Appearance Urine Clear; Color Urine Yellow; Glucose Urine UA Negative (Negative); Leukocyte Esterase Urine Negative (Negative); Nitrite Urine Negative (Negative); PH 6.5 (5.0-9.0); Urine Blood Negative (Negative); Urine Ketones Negative (Negative); Urine Protein Negative (Neg-Trace)
[2025-03-08 10:25] LABS: Hematocrit 43.9 % (42.0-52.0); Hemoglobin 15.3 g/dl (14.0-18.0); Mean Corpuscular HGB Conc 34.9 g/dl (31.0-36.0); Mean Corpuscular Hemoglobin 32.3 pg (27.0-33.0); Mean Corpuscular Volume 92.8 fL (80.0-98.0); Mean Platelet Volume 9.8 fL (9.4-12.4); Platelet Count 195 X10*3/uL (160-400); Red Blood Count 4.73 X10*6/uL (4.60-5.80); White Blood Count 6.1 X10*3/uL (4.8-10.8)
[2025-03-08 11:18] LABS: Alanine Aminotransferase 19 U/L (0-40); Albumin Level 4.1 g/dL (3.5-5.0); Alkaline Phosphatase 40 U/L (39-117); Anion Gap 10 (12-20); Aspartate Amino Transferase 26 U/L (5-37); Bilirubin Direct 0.3 mg/dL (0.0-0.5); Bilirubin Total 0.7 mg/dL (0.0-1.0); Blood Urea Nitrogen 9 mg/dL (9-16); Carbon Dioxide 27 mmol/L (22-29); Chloride 110 mmol/L (96-108); Cholesterol 215 mg/dL (<200); Estimated Glomerular Filt Rate > 60; Glucose Random 96 mg/dL (60-115); HDL Cholesterol 65 mg/dL (>40); LDL Cholesterol Calculated 133 mg/dL (<100); Potassium 4.2 mmol/L (3.3-5.1); Sodium 143 mmol/L (135-145); Total Protein 6.3 g/dL (6.5-8.0); Triglycerides 87 mg/dL (<150)
[2025-03-08 11:19] LABS: Thyroid Stimulating Hormone 2.19 uIU/mL (0.32-4.0)
== END 2025-03-08 08:16 | disposition home or self-care (01) ==
LOC: HO.HMGCLDS 08:15
PROVIDERS: PCP Internal Medicine; Visit Provider Internal Medicine
DX: R55 Syncope and collapse (principal)
CPT/HCPCS: 36415; 80048; 80061; 80076; 81003; 82088; 82530; 84443; 85027

== ENCOUNTER 2025-03-27 14:18 | Outpatient (AMB) | payer MEDICARE, OTHER, SELFPAY ==
--- OUTSIDE RECORDS SUMMARY | 2025-03-27 14:22 | XMS_ITS ---
Author Organization [facility] Address [address] [place] [phone] Care Team Providers Care Platform Supervisor Name Role Phone Darryl Bone MD Primary Care Provider Dakota Corrales Jr REASON FOR VISIT please lock 06-27-2024 office note Encounters Encounter Location Date Provider Diagnosis [facility] [address] [place] [phone] 08/08/2024 Dakota Howell Jr Plan Of Treatment No Information Progress Notes * TEQUILA HERNANDEZ ADOB:[birth year] (74 yo M)Acc No.[id number]:08/08/2024 Patient:?TEQUILA HERNANDEZ :1950???Age:74 Y???Sex:Male Address:[address] [place] [address] * true * Date:? Generated for Greggi halle/Rashaun/eTransmitting on:?03/27/2025 02:21 PM EDT
[2025-03-27 14:34] VITALS: BP 126/72; PULSE 58; TEMP 36.2; O2SAT 98; BMI 23.9
--- NOTE | 2025-03-27 14:34 | MHC.PC.OV ---
Vital Signs 03/27/25 14:34 Height 5 ft 6 in Weight 148 lb BMI 23.9 BP 126/72 Blood Pressure Location Lt brachial Position Sitting Pulse 58 Pulse Source Pulse Oximeter Temp 97.1 F Temp Source Axillary Pulse Oximetry (%) 98 Oxygen Delivery Method Room Air Intake Visit Reasons: 2 week f/u Wool Mixer Required: No Accompanied by: Self / Same As Patient Allergies No Known Allergies Allergy (Verified 03/27/25 14:35) Tobacco use date assessed: 03/27/25 Fall risk assessment: No Falls in past year Last assessed Fall Risk: 03/27/25 Dental Screening Dental Screen Date: 03/27/25 Did you have a dental visit in the last 12 months?: Yes Did you have a dental problem in the last 6 months where you did not have access to dental care?: No [facility] Medical History Elevated PSA Benign prostatic hyperplasia with lower urinary tract symptoms Surgical History History of colonoscopy (~09/04/24) History of surgery Family History Mother No problems noted. Father No problems noted. Social History Housing: House Patient Tobacco Use Status: Former Tobacco user e-Cigarette/Vaping Use: Former Use service: No Current occupational status: retired Cognitive needs: No Hearing needs: No Vision needs: Yes (rx glasses) Questionnaire PHQ-9 Over the last 2 weeks, how often have you been bothered by any of the following problems? 1. Little interest or pleasure in doing things: not at all 2. Feeling down, depressed, or hopeless: not at all 3. Trouble falling or staying asleep, or sleeping too much: not at all 4. Feeling tired or having little energy: not at all 5. Poor appetite or overeating: not at all 6. Feeling bad about yourself - or that you are a failure or have let yourself or your family down: not at all 7. Trouble concentrating on things, such as reading the newspaper or watching television: not at all 8. Moving or speaking so slowly that other people could have noticed. Or the opposite - being so fidgety or restless that you have been moving around a lot more than usual: not at all 9. Thoughts that you would be better off or of hurting yourself in some way: not at all Total score: 0 Source: Developed by Drs. Antony Soria, Rakel Rockwell, Reddy Lundy and colleagues, with an educational sophy from [employer]. Thrive Questionnaire Date Thrive assessed: 03/27/25 I am a: Patient Within the past 12 months, did the food you bought not last and you didn't have the money to get more?: Never true Within the past 12 months, did you worry whether your food would run out before you got money to buy more?: Never true Do you have trouble paying for medicines?: No Do you have trouble getting transportation to medical appointments?: No Do you have trouble paying your heating and electricity bill?: No Do you have trouble taking care of your child, family member or friend?: No Do you have trouble with day-to-day activities such as bathing, preparing meals, shopping, managing finances, etc.?: No Are you currently unemployed and looking for a job?: No Are you interested in more education?: No THRIVE Score: 0 AUDIT C Alcohol Use Questionnaire (AUDIT-C) 1. How often do you have a drink containing alcohol?: Monthly or less 2. How many drinks containing alcohol do you have on a typical day when you are drinking?: 1 or 2 3. How often do you have six or more drinks on one occasion?: Less than monthly Total Score: 2 PEEWEE-7 AMB Questionnaire PEEWEE-7 Date PEEWEE - 7 assessed: 03/27/25 Feeling nervous, anxious, or on edge: 0 = Not at all Not being able to stop or control worryin = Not at all Worrying too much about different things: 0 = Not at all Trouble relaxin = Not at all Being so restless that it is hard to sit still: 0 = Not at all Becoming easily annoyed or irritable: 0 = Not at all Feeling afraid as if something awful might happen: 0 = Not at all Total PEEWEE-7 score (0-4 normal; 5-9 mild; 10-14 moderate; 15-21 severe): 0 Source: Developed by Drs. Antony Soria, Rakel Rockwell, Reddy Lundy and colleagues, with an educational sophy from [employer]. Physical exam (Primary Care) Vital Signs: Last Vital Signs Temp 97.1 F 03/27/25 14:34 Pulse 58 03/27/25 14:34 BP 126/72 03/27/25 14:34 Pulse Ox 98 03/27/25 14:34 Oxygen Delivery Method Room Air 03/27/25 14:34 BMI result Body Mass Index 23.9 Tobacco/Smoking Status: Tobacco use Status Tobacco use date assessed 03/27/25 03/27/25 14:36 Patient Tobacco Use Status Former Tobacco user 03/27/25 14:36 e-Cigarette/Vaping Use Former Use 03/27/25 14:36 PHQ-9: PHQ-9 Score PHQ-9: Total score 0 03/27/25 14:36 Thrive Assessment: Date of Thrive Assessment Date Thrive assessed 03/27/25 03/27/25 14:36 Coding Level of Care Code Est Pt Level 4 (90416) Complex EM visit Add On G2211 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 If all tests are negative, will consider neurology appt for evaluation of dizziness Plan History of Present Illness - The patient is a 74-year-old male presenting with syncope. - Episodes of syncope led to falls resulting in a rib fracture; initial episode occurred last February. - The patient experiences daily lightheadedness, particularly when active. - A recent near-syncopal episode happened while seated, with symptoms resolving after rest. - No positional changes trigger symptoms. - Blood tests revealed low-normal aldosterone levels; cortisol testing remains incomplete. - Cardiological evaluation has indicated normal cardiac health. - A recommended neurologist consultation has yet to occur. Social History - The patient consumes beer, typically on weekends; recently increased to a couple of beers during weekdays due to stress. - Has reduced driving due to concerns about passing out, although occasional short trips are made. - , with accompaniment by spouse during conversations. Review of Systems - Neurological: Reports lightheadedness and dizziness; denies further episodes of syncope. - Cardiovascular: Denies recent vertigo or cardiac symptoms. - Musculoskeletal: History of rib fracture. - Psychiatric: Reports normal fluctuations of mood; denies taking medications for anxiety or depression. Physical Exam General: Cooperative and healthy appearing Nutritional Appearance: Well nourished Orientation/consciousness: Patient oriented x3 Limitations: No limitations Head: Normal to inspection General: Appearance normal, both eyes and all related structures Neck: Normal visual inspection Chest: Normal palpation of entire chest wall Respiratory: N ormal respiratory effort Neurology: Patient oriented x3, but reports lightheadedness and dizziness when up and about. No recent falls, but history of syncopal episodes and rib fracture. No neurologist consultation yet. Results - Lab: Aldosterone levels at the lower limit of normal. - Lab: Cortisol test not conducted due to blood sample issue. Plan 1. Syncope - Monitor for recurrence of syncope, avoid triggers, and consult neurology regarding unexplored aspects. 2. Lightheadedness - Persistent monitoring, ensuring hydration, symptom rest response, and escalation addressal. Discussion Notes During the visit, I discussed with the patient the importance of monitoring for further syncope episodes and outlined the plan to pursue a neurology consultation given the concerns for unexplained syncopal episodes. We reviewed his abnormal aldosterone findings and the incompletion of the cortisol test. The influence of alcohol consumption on his syncopal episodes was considered, with recommendations to reduce intake emphasized. The patient was advised on the recognition of worsening symptoms that might necessitate prompt re-evaluation. Detailed attention was given to the importance of keeping his episodes under control and seeking medical intervention if symptoms exacerbate. Patient Instructions - Avoid alcohol to mitigate potential syncope triggers. - Monitor for any signs of syncope or increased dizziness. - Rest as needed and report any new or worsening episodes. - Attempt to get an appointment with a neurologist as previously recommended. - Maintain safe practices when considering driving; avoid if dizzy. - Return to the clinic if symptoms worsen or further assistance is needed. 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
== END 2025-03-27 15:22 | disposition home or self-care (01) ==
LOC: HO.HMCHD 14:18
PROVIDERS: PCP Internal Medicine; Visit Provider Internal Medicine
DX: E27.40 Unspecified adrenocortical insufficiency (principal)

== ENCOUNTER → 2025-03-27 14:18 | Outpatient (BNVA) | payer MEDICARE, OTHER, SELFPAY | PROVIDERS: PCP Internal Medicine; Visit Provider Internal Medicine | DX: E27.40 Unspecified adrenocortical insufficiency (principal) | CPT/HCPCS: 99212 ==

== ENCOUNTER 2025-04-04 08:48 | Outpatient (REF) | payer MEDICARE, OTHER, SELFPAY ==
--- OUTSIDE RECORDS SUMMARY | 2025-04-04 09:15 | XMS_ITS ---
Author Organization [facility] Address [address] [place] [phone] Care Team Providers Care Second Baker Name Role Phone Darryl Bone MD Primary Care Provider Dakota Corrales Jr [phone] REASON FOR VISIT please lock 06-27-2024 office note Encounters Encounter Location Date Provider Diagnosis [facility] [address] [place] [phone] 08/08/2024 Dakota Howell Jr Plan Of Treatment No Information Progress Notes * TEQUILA HERNANDEZ ADOB:[birth year] (74 yo M)Acc No.[id number]:08/08/2024 Patient:?TEQUILA HERNANDEZ :1950???Age:74 Y???Sex:Male Address:[address] [place] [address] * true * Date:? Generated for Printi halle/Rashaun/eTransmitting on:?04/04/2025 09:14 AM EDT
[2025-04-04 10:10] LABS: Anion Gap 10 (12-20); Blood Urea Nitrogen 11 mg/dL (9-16); Calcium 9.2 mg/dL (8.4-10.2); Carbon Dioxide 29 mmol/L (22-29); Chloride 107 mmol/L (96-108); Estimated Glomerular Filt Rate > 60; Glucose Random 90 mg/dL (60-115); Potassium 4.5 mmol/L (3.3-5.1); Sodium 141 mmol/L (135-145)
[2025-04-04 10:42] LABS: Cortisol Random 12.2 ug/dL
[2025-04-08 14:37] LABS: Adrenocorticotropic Hormone 11 pg/mL (6-50)
[2025-04-12 06:04] LABS: Aldosterone/Renin Ratio 3.6 Ratio (0.9-28.9); Plasma Renin Activity 1.38 ng/mL/h (0.25-5.82)
== END 2025-04-04 08:49 | disposition home or self-care (01) ==
LOC: HO.LAB 08:48
PROVIDERS: PCP Internal Medicine; Visit Provider Internal Medicine
DX: E27.40 Unspecified adrenocortical insufficiency (principal)
CPT/HCPCS: 36415; 80048; 82024; 82088; 82533

== ENCOUNTER 2025-07-04 10:06 | Outpatient (REF) | payer MEDICARE, OTHER, SELFPAY ==
--- OUTSIDE RECORDS SUMMARY | 2024-09-04 03:30 | XMS_ITS ---
Author Organization [facility] Address [address] [place] [address] Care Team Providers Care Charge Nurse Name Role Phone Lizandro (RETIRED) Darryl BEARD Primary Care Provide r Dakota Andino Jr REASON FOR VISIT screening Encounters Encounter Location Date Provider Diagnosis [facility] [place] [address] [place] [id number] 09/04/2024 Dakota Howell Jr Colon cancer screening Z12.11 and Personal history of colonic polyps Z86.0100 Assessments Encounter Date Diagnosis (ICD Code) Assessment Notes Treatment Notes Treatment Clinical Notes Section Notes 09/04/2024 Colon cancer screening (ICD-10 - Z12.11) 09/04/2024 Personal history of colonic polyps (ICD-10 - Z86.0100) Plan Of Treatment No Information Progress Notes * TEQUILA HERNANDEZ ADOB:[birth year] (75 yo M)Acc No.[id number]:09/04/2024 COLON WITH MAC Patient: TEQUILA SHARP Provider: Maverick Howell MD :1950 A ge:74 Y S ex:Male Date:09/04/2024 Address:[address] [place], [place] [phone] Pcp:Darryl Bone (RETIRED )MD Subjective: * Chief Complaints: * 1 . Screening. * Medical History: Objective: * Vitals: Assessment: * Assessment: 1. C olon cancer screening - Z12.11 (Primary) 2 . P ersonal history of colonic polyps - Z86.0100 Plan: * Treatment: * Procedure Codes: G 0105 COLOREC CANCR SCR; COLNSCPY HI RISK, 41178 DIAGNOSTIC COLONOSCOPY, 0529F INTRVL 3+YRS PTS CLNSCP DOCD, 0528F RCMND FLW-UP 10 YRS DOCD * * The named appointment provid er may or may not be the originator of this progress note, and it is not deemed complete until electronically signed by the appointment provider. Sign off status: Pending * Provider: Maverick Howell MD Date: 1 11/04/2023 Generated for Celena neri/Rashaun/Bisiitting on: 0 07/04/2025 12:19 PM EDT
--- OUTSIDE RECORDS SUMMARY | 2025-07-04 12:20 | XMS_ITS | Patient Health Record ---
Author Organization [facility] Address [address] [place] [phone] Care Team Providers Care Cable Tv Installer Name Role Phone Darryl Bone MD Primary Care Provider Unavaila Benjamin Cerda Unavailable [phone] Allergies No Known Allergies Reason For Referral No Information Medications Medication SIG (Take, Route, Frequency, Duration) Notes Start Date End Date Status Feldene 20 MG 1 capsule with food Orally Once a day; Duration: 30 day(s) 07/09/2022 Active Social History Tobacco [...] Coverage End Date Medicare [facility] [address] [place] [phone] [id number] Tristan Moon Self - patient is the insured [facility] [address] [place] [address] [id number] Olivia Moon Spouse - patient is the spouse of the insured Medical (General) History Medical History History ICD Code Chicken pox Surgical History Surgery Date(Month/Year)
--- OUTSIDE RECORDS SUMMARY | 2025-07-04 12:20 | XMS_ITS | Patient Health Record ---
Author Organization [facility] Address [address] [place] [phone] Care Team Providers Care Setter Juice Packaging Machines Name Role Phone Lizandro (RETIRED) Darryl BEARD Primary Care Provide r Unavailable Dante Ledesma, Dakota Fuller Allergies No Known Allergies Reason For Referral [...] Problem Status W/U Status Risk Notes Problem [id number] Colon cancer screening (Z12.11) Active confirmed Problem [id number] Syncope, unspecified syncope type (R55) Active confirmed Encounters Encounter Location Date Provider Diagnosis [facility] [place] [address], [place] [phone] 09/04/2024 Dakota Howell Jr Colon cancer screening Z12.11 and Personal history of colonic polyps Z86.0100 [facility] [address] [place] [phone] 08/08/2024 Dakota Howell Jr Assessments Encounter Date Diagnosis (ICD Code) Assessment Notes Treatment Notes Treatment Clinical Notes Section Notes 09/04/2024 Colon cancer screening (ICD-10 - Z12.11) 09/04/2024 Personal history of colonic polyps (ICD-10 - Z86.0100) Plan Of Treatment Future Test Test Name Order Date COLONOSCOPY 02/16/2018 COLONOSCOPY 06/27/2024 Insurance Providers Payer Name Payer Address Payer Phone Subscriber Number Group Number Insured Name Patient Relationship to Insured Coverage Start Date Coverage End Date MEDICARE OF [place] [address] [place] [phone] [id number] TEQUILA VILLEDA Self - patient is the insured [employer] ([employer]) [address] [place] [address] [id number] TEQUILA VILLEDA Self - patient is the insured Medical (General) History Medical History History ICD Code elevated PSA with negative biopsy Syncope Surgical History Surgery Date(Month/Year) hernia repair
[2025-07-04 14:10] LABS: Prostate Specific Antigen 5.14 ng/mL (<0.05-4.0)
== END 2025-07-04 10:07 | disposition home or self-care (01) ==
LOC: HO.HMGCLDS 10:06
PROVIDERS: Visit Provider Urology
DX: Z12.5 Encounter for screening for malignant neoplasm of prostate (principal); R97.20 Elevated prostate specific antigen [PSA]
CPT/HCPCS: 36415; 84153

== ENCOUNTER 2025-07-18 09:47 | Outpatient (AMB) | payer MEDICARE, OTHER, SELFPAY ==
--- OUTSIDE RECORDS SUMMARY | 2024-09-04 03:30 | XMS_ITS ---
Author Organization [facility] Address [address] [place] [address] Care Team Providers Care Agronomy Teacher Name Role Phone Lizandro (RETIRED) Darryl BEARD Primary Care Provide r Dakota Andino Jr REASON FOR VISIT screening Encounters Encounter Location Date Provider Diagnosis [facility] [place] [address] [place] [id number] 09/04/2024 Dakota Howell Jr Colon cancer screening Z12.11 and Personal history of colonic polyps Z86.0100 Assessments Encounter Date Diagnosis (ICD Code) Assessment Notes Treatment Notes Treatment Clinical Notes Section Notes 09/04/2024 Colon cancer screening (ICD-10 - Z12.11) 09/04/2024 Personal history of colonic polyps (ICD-10 - Z86.0100) Plan Of Treatment No Information Progress Notes * TEQUILA HERNANDEZ ADOB:[birth year] (75 yo M)Acc No.[id number]:09/04/2024 COLON WITH MAC Patient: TEQUILA SHARP Provider: Maverick Howell MD :1950 A ge:74 Y S ex:Male Date:09/04/2024 Address:[address] [place], [place] [phone] Pcp:Darryl Bone (RETIRED )MD Subjective: * Chief Complaints: * 1 . Screening. * Medical History: Objective: * Vitals: Assessment: * Assessment: 1. C olon cancer screening - Z12.11 (Primary) 2 . P ersonal history of colonic polyps - Z86.0100 Plan: * Treatment: * Procedure Codes: G 0105 COLOREC CANCR SCR; COLNSCPY HI RISK, 98682 DIAGNOSTIC COLONOSCOPY, 0529F INTRVL 3+YRS PTS CLNSCP DOCD, 0528F RCMND FLW-UP 10 YRS DOCD * * The named appointment provid er may or may not be the originator of this progress note, and it is not deemed complete until electronically signed by the appointment provider. Sign off status: Pending * Provider: Maverick Howell MD Date: 1 11/04/2023 Generated for Celena neri/Rashaun/Bisiitting on: 0 07/18/2025 11:40 AM EDT
--- NOTE | 2025-07-18 09:57 | MHC.OFFVIS ---
Intake Visit Reasons: 6m/ PSA Intake Note: Patient is present for 6M/US/PSA/ PVR Urology Medication:NONE Antibiotic Allergy:NONE Blood Thinner:NONE Labs done 07/04/25 PSA 5.14 Todays PVR:23ML'S Crusher Setter Required: No Accompanied by: Self / Same As Patient Allergies No Known Allergies Allergy (Verified 07/18/25 09:58) HPI Comments Details: Tristan is a very pleasant male. He is a patient of Dr. Bone. He is in for the following issues - elevated PSA - lower urinary tract symptoms PSA continues to be variable Six-month follow-up PSA PSA 05/16 4.7 26%, 11/17 3.8, 07/18 5.1 Did not actually take finasteride. Had worried about side effects. Does have a known variable PSA Discussed appropriate length of follow-up for PSA I suggested we follow until he has less than a 10 year life expectancy Based on current social [employer] database he has a 12 year expectancy Six-month follow-up Elevated PSA Discussed current results Prior biopsy 2018 negative, PSA at biopsy 9 PSA 03/12 4.4, 03/13 3.4, 08/14 3.5, 09/15 7.2 18%, 11/16 3.4, 05/16 4.7 26%, 11/17 3.8 Prostate ultrasound 11/17 - 50 g Keep doing green tea extract PFSH Medical History Elevated PSA Benign prostatic hyperplasia with lower urinary tract symptoms Surgical History History of colonoscopy (~09/04/24) History of surgery Family History Mother No problems noted. Father No problems noted. Social History Housing: House Patient Tobacco Use Status: Former Tobacco user e-Cigarette/Vaping Use: Former Use service: No Current occupational status: retired Cognitive needs: No Hearing needs: No Vision needs: Yes (rx glasses) Review of Systems Const Denies chills and Denies fever(s) Card Reports no additional complaints and Denies syncope Resp Denies cough GI Denies abdominal pain and Denies heartburn Reports as per HPI and Denies change in libido Neuro Denies syncope Psych Denies change in libido Endo Denies change in libido Physical Exam Const General: cooperative, healthy appearing, comfortable and no acute distress Orientation/consciousness: patient oriented x3 HEENT Face and sinus: Yes normal facial exam Mouth: moist mucous membranes Neck Neck: Yes normal visual inspection, Yes full ROM and Yes trachea midline Chest Chest palpation & inspection: normal inspection of the chest Resp Effort & Inspection: normal respiratory effort, able to speak in complete sentences and no respiratory distress GI Inspection: Yes normal to inspection Back/Spine/Pelvis Cervical Spine: normal cervical lordosis Thoracic/Lumbar Spine: thoracic and lumbar spine normal to inspection Skin General skin exam: no rashes or lesions noted Neuro General: patient oriented x3, gait normal, tone normal and moves all extremities Extrem General: Yes normal to inspection and Yes capillary refill normal Assessment & Plan Assessment & Plan (1) Benign prostatic hyperplasia with lower urinary tract symptoms: Code(s): N40.1 - Benign prostatic hyperplasia with lower urinary tract symptoms Category: Medical Qualifiers: Lower urinary tract symptom detail: incomplete bladder emptying Qualified Code(s): N40.1 - Benign prostatic hyperplasia with lower urinary tract symptoms; R39.14 - Feeling of incomplete bladder emptying (2) Elevated PSA: Code(s): R97.20 - Elevated prostate specific antigen [PSA] Category: Medical Plan Six-month follow-up lab work Orders: Orders PSA,Total (Free>4and<10) 6 Months R97.20 - Elevated prostate specific antigen [PSA] Patient Instructions: This note is constructed using voice recognition software. While every effort has been made to ensure accuracy biomedical engineer errors may have been included. Imaging studies, laboratory and physical exam results were discussed and reviewed in detail. No major barriers to patient understanding were identified. An opportunity to ask questions regarding the treatment plan was provided. All questions were answered. The patient expressed understanding and agreement with the above treatment plan. The patient is aware they should contact our office by phone for worsening of their current condition or the appearance of new urologic symptoms. Compliance is encouraged with any medications and followup testing that is ordered. It is a privilege to participate in the urologic care of your patient. If you have any questions or concerns regarding treatment for the above conditions, or other urologic issues, please do not hesitate to contact me. The office telephone contact is [phone]. Sincerely, Dr Bentley Torres MD, [facility] - Urology Compassionate Specialist Care for the Genitourinary System Coding Level of Care Code Est Pt Level 3 (79284) Complex EM visit Add On G2211 Diagnoses Benign prostatic hyperplasia with incomplete bladder emptying N40.1; R39.14 Lower urinary tract symptom detail: incomplete bladder emptying Elevated PSA R97.20
--- OUTSIDE RECORDS SUMMARY | 2025-07-18 11:41 | XMS_ITS | Patient Health Record ---
Author Organization [facility] Address [address] [place] [phone] Care Team Providers Care Torch Shearer Name Role Phone Lizandro (RETIRED) Darryl BEARD [...] Problem Status W/U Status Risk Notes Problem [id number] Colon cancer screening (Z12.11) Active confirmed Problem [id number] Syncope, unspecified syncope type (R55) Active confirmed Encounters Encounter Location Date Provider Diagnosis [facility] [place] [address], [place] [phone] 09/04/2024 Dakota Howell Jr Colon cancer screening Z12.11 and Personal history of colonic polyps Z86.0100 [facility] [address] [place] [phone] 08/08/2024 Dakota Howell Jr Assessments Encounter Date [...] Date MEDICARE OF [place] [address] [place] [phone] [id number] TEQUILA VILLEDA Self - patient is the insured [employer]) [address] [place] [address] [id number] TEQUILA VILLEDA Self - patient is the insured Medical (General) History Medical History History ICD Code elevated PSA with negative biopsy Syncope Surgical History Surgery Date(Month/Year) hernia repair
--- OUTSIDE RECORDS SUMMARY | 2025-07-18 11:41 | XMS_ITS | Patient Health Record ---
Author Organization [facility] Address [address] [place] [phone] Care Team Providers Care Concession Manager Name Role Phone Darryl Bone MD Primary Care Provider Unavaila Benjamin Cerda Unavailable [phone] Allergies No Known Allergies Reason For Referral [...] Start Date Coverage End Date Medicare National [facility] [address] [place] [phone] [id number] Tristan Moon Self - patient is the insured [facility] [address] [place] [address] [id number] Olivia Moon Spouse - patient is the spouse of the insured Medical (General) History Medical History History ICD Code Chicken pox Surgical History Surgery Date(Month/Year)
== END 2025-07-18 10:39 | disposition home or self-care (01) ==
LOC: HO.HUSH 09:47
PROVIDERS: PCP Internal Medicine; Visit Provider Urology
DX: N40.1 Benign prostatic hyperplasia with lower urinary tract symptoms (principal); R39.14 Feeling of incomplete bladder emptying; R97.20 Elevated prostate specific antigen [PSA]; Z13.9 Encounter for screening, unspecified
CPT/HCPCS: 99213; G2211

== ENCOUNTER → 2025-07-18 09:47 | Outpatient (BNVA) | payer MEDICARE, OTHER, SELFPAY | PROVIDERS: PCP Internal Medicine; Visit Provider Urology | DX: N40.1 Benign prostatic hyperplasia with lower urinary tract symptoms (principal); R39.14 Feeling of incomplete bladder emptying; R97.20 Elevated prostate specific antigen [PSA] | CPT/HCPCS: 51798; 81003; 99212 ==

== ENCOUNTER 2025-08-11 13:56 | Emergency (ER) | payer MEDICARE, OTHER, SELFPAY ==
--- OUTSIDE RECORDS SUMMARY | 2024-09-04 03:30 | XMS_ITS ---
Author Organization [facility] Address [address] [place] [address] Care Team Providers Care Milk Deliverer Name Role Phone Lizandro (RETIRED) Darryl BEARD Primary Care Provide r Dakota Andino Jr REASON FOR VISIT screening Encounters Encounter Location Date Provider Diagnosis [facility] [place] [address] [place] [id number] 09/04/2024 Dakota Howell Jr Colon cancer screening Z12.11 and Personal history of colonic polyps Z86.0100 Assessments Encounter Date Diagnosis (ICD Code) Assessment Notes Treatment Notes Treatment Clinical Notes Section Notes 09/04/2024 Colon cancer screening (ICD-10 - Z12.11) 09/04/2024 Personal history of colonic polyps (ICD-10 - Z86.0100) Plan Of Treatment No Information Progress Notes * TEQUILA HERNANDEZ ADOB:[birth year] (75 yo M)Acc No.[id number]:09/04/2024 COLON WITH MAC Patient: TEQUILA SHARP Provider: Maverick Howell MD :1950 A ge:74 Y S ex:Male Date:09/04/2024 Address:[address] [place], [place] [phone] Pcp:Darryl Bone (RETIRED )MD Subjective: * Chief Complaints: * 1 . Screening. * Medical History: Objective: * Vitals: Assessment: * Assessment: 1. C olon cancer screening - Z12.11 (Primary) 2 . P ersonal history of colonic polyps - Z86.0100 Plan: * Treatment: * Procedure Codes: G 0105 COLOREC CANCR SCR; COLNSCPY HI RISK, 99521 DIAGNOSTIC COLONOSCOPY, 0529F INTRVL 3+YRS PTS CLNSCP DOCD, 0528F RCMND FLW-UP 10 YRS DOCD * * The named appointment provid er may or may not be the originator of this progress note, and it is not deemed complete until electronically signed by the appointment provider. Sign off status: Pending * Provider: Maverick Howell MD Date: 11/04/2023 Generated for Celena neri/Rashaun/Bisiitting on: 02:27 PM EDT
[2025-08-11 14:19] VITALS: BP 124/82; PULSE 69; RESP 18; TEMP 36.8; O2SAT 96; BMI 24.3
--- NOTE | 2025-08-11 14:20 | ED.GENADULT ---
HPI - General Adult General Chief complaint: General Medical Stated complaint: tick bite Time Seen by Provider: 08/11/25 14:20 Source: patient, family, RN notes reviewed and old records reviewed Mode of arrival: ambulatory Limitations: no limitations History of Present Illness ED Provider: Tayo MALIN narrative: Patient is a 75-year-old male presenting to the emergency department with report of tick bite to right lower leg. Thinks it may have become attached on Tuesday night, noticed the tick yesterday and pulled it off. This morning he noticed a small red ring around the area. Denies any fevers, chills, body aches, joint pain. 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 MD complaint: Tick bite Onset (ago): day(s) Related Data Home Medications ?Medication ?Instructions ?Recorded ?Confirmed cranberry fruit 400 mg capsule 400 mg PO Q OTHER DAY 03/17/24 11/08/24 green tea extract 500 mg capsule 500 mg PO Q OTHER DAY 03/17/24 11/08/24 Allergies Allergy/AdvReac Type Severity Reaction Status Date / Time No Known Allergies Allergy Verified 08/11/25 14:20 Review of Systems Review of Systems: As per HPI Yes all other systems are reviewed and are negative Constitutional: Constitutional: Reports as per HPI [facility] Past Medical History Medical History Elevated PSA Benign prostatic hyperplasia with lower urinary tract symptoms Surgical History History of colonoscopy (~09/04/24) History of surgery Family History Family History Mother No problems noted. Father No problems noted. Social History Social History Housing: House Patient Tobacco Use Status: Former Tobacco user e-Cigarette/Vaping Use: Former Use service: No Current occupational status: retired Cognitive needs: No Hearing needs: No Vision needs: Yes (rx glasses) Physical Exam ED Vital Signs: Vital Signs - 24 hr 08/11/25 14:19 Temperature 98.2 F Pulse Rate 69 Respiratory Rate 18 Blood Pressure 124/82 Pulse Oximetry 96 Oxygen Delivery Method Room Air BMI result Body Mass Index 24.3 Vital signs have been reviewed and appear to be correct. Blood pressure normal. Heart rate normal. Respiratory rate normal. Temperature normal. Oxygen saturation normal. Const General: cooperative, healthy appearing and no acute distress Orientation/consciousness: oriented to person, oriented to place, oriented to time and patient oriented x3 Limitations: no limitations HENMT Head: Yes normocephalic and Yes atraumatic Ears: external ears normal General nose exam: Normal external nose present Face and sinus: Yes face symmetric Mouth: oropharynx normal and moist mucous membranes Throat: Yes uvula midline Eyes Pupils: Equal, round and reactive pupils present Neck Neck: Yes normal visual inspection and Yes supple Resp Effort & Inspection: normal respiratory effort and able to speak in complete sentences Auscultation: clear to auscultation bilaterally Cardio Rate: regular rate Rhythm: regular rhythm Heart sounds: S1 normal heart sound present and S2 normal heart sound present GI Palpation (GI): Soft to palpation and nontender Auscultation: normoactive bowel sounds General: Yes no CVA tenderness Back/Spine/Pelvis Back: no CVA tenderness Skin General skin exam: elasticity normal and turgor normal Neuro General: oriented to person, oriented to place, oriented to time, patient oriented x3, moves all extremities, no focal motor deficits and CN's II-XI intact bilaterally Cranial nerves: Yes Equal, round and reactive pupils present Cognition (Neuro): normal cognition Extrem General: Yes full ROM, Yes no pedal edema and Yes no calf tenderness Elbow/forearm/wrist images:  1. tick bite with surrounding ring of erythema, no warmth or lymphangitis Psych Mental Status: mental status grossly normal Affect: normal affect Thought process: Normal thought process present Medical Decision Making Medical Decision Making MDM Narrative: Patient is a 75-year-old male presenting to the emergency department with report of tick bite to right lower leg. On exam patient is awake, A+Ox3, VS WNL, afebrile, normal neurological exam without focal deficits, physical exam findings as above. Given reported symptoms and physical exam findings, initial differential includes but is not limited to tick bite. Area not consistent with erythema migrans, cellulitis. Patient treated with 1 time prophylactic dose of doxycycline 200 mg. Discussed with patient that if he develops symptoms such as fever, body aches, joint pain, etc. in 4-6 weeks, to follow up with his primary care provider for tick-borne illness testing. Advised patient to monitor tick bite area daily for the next week to ensure area does not become more erythematous or TX cellulitic. Return precautions discussed. Patient verbalized understanding of and agreement with plan. Differential Diagnosis Differential Diagnoses: The differential diagnosis associated with the presentation includes As per MDM Admission/Observation Consideration of admission/observation: Escalation of care including admission/observation considered Patient would have been admitted to the hospital and transferred to appropriate facility had their clinical presentation warranted hospital admission. External Record Review External record reviewed: Inpatient record, Office record and Outpatient record Discharge Plan Discharge Clinical Impression: Tick bite of right lower leg Qualifiers: Encounter type: initial encounter Qualified Code(s): S80.861A - Insect bite (nonvenomous), right lower leg, initial encounter Patient Disposition: Home, Self-Care Instructions: Doxycycline (By mouth), Lyme Disease (ED), Tick Bite (ED) Additional Instructions: You were evaluated in the emergency department today for a tick bite. You were treated with a 1 time dose of an antibiotic called doxycycline to prevent the transmission of infection. If you develop fever/chills/body aches/joint pain or worsening rash in the next 4-6 weeks, please follow up with your primary care provider. Return to the emergency department with any new or concerning symptoms. Prescriptions: No Action cranberry fruit 400 mg Capsule 400 mg PO Q OTHER DAY Rx Instructions: administer with a meal green tea extract 500 mg Capsule 500 mg PO Q OTHER DAY Print Language: Monegasque
[2025-08-11 14:28] VITALS: BP 124/82; PULSE 69; RESP 18; TEMP 36.8; O2SAT 96
--- OUTSIDE RECORDS SUMMARY | 2025-08-11 14:28 | XMS_ITS | Patient Health Record ---
[facility] Address [address] [place] [id number] Care Team Providers Care Skills Instructor Name Role Phone Darryl Bone MD Primary Care Provider Unavaila Benjamin Cerda Unavailable [phone] Allergies No Known Allergies Reason For Referral [...] Start Date Coverage End Date Medicare [facility] [address] [place] [phone] [id number] Tristan Moon Self - patient is the insured [facility] [address] [place] [address] [id number] Olivia Moon Spouse - patient is the spouse of the insured Medical (General) History Medical History History ICD Code Chicken pox Surgical History Surgery Date(Month/Year)
--- OUTSIDE RECORDS SUMMARY | 2025-08-11 14:28 | XMS_ITS | Patient Health Record ---
Author Organization [facility] Address [address] [place] [address] Care Team Providers Care Vacation Planner Name Role Phone Lizandro (RETIRED) Darryl BEARD Primary Care Provide r Unavailable Dante Ledesma, Dakota Unavailable Allergies No Known Allergies Reason For Referral [...] Problem Status W/U Status Risk Notes Problem Colon cancer screening (679923467) Colon cancer screening (Z12.11) Active confirmed Problem Syncope and collapse (440901117) Syncope, unspecified syncope type (R55) Active confirmed Encounters Encounter Location Date Provider Diagnosis [facility] [address] [address] [place], [place] [id number] 09/04/2024 Dakota Howell Jr Colon cancer screening [...] Date MEDICARE OF [place] [address] [facility] [place] [address] [phone] [id number] TEQUILA VILLEDA Self - patient is the insured [employer] ([employer]) [address] [place] [address] [phone] [id number] TEQUILA VILLEDA Self - patient is the insured Medical (General) History Medical History History ICD Code elevated PSA with negative biopsy Syncope Surgical History Surgery Date(Month/Year) hernia repair
== END 2025-08-11 14:28 | disposition home or self-care (01) ==
PROVIDERS: Emergency Provider Emergency Medicine; PCP Internal Medicine
DX: S80.861A Insect bite (nonvenomous), right lower leg, initial encounter (principal); W57.XXXA Bitten or stung by nonvenomous insect and other nonvenomous arthropods, initial encounter; Y93.89 Activity, other specified; Y92.89 Other specified places as the place of occurrence of the external cause; Y99.8 Other external cause status
CPT/HCPCS: 99282; 99283

== ENCOUNTER → 2025-09-26 19:22 | Outpatient (BNV) | payer MEDICARE, OTHER, SELFPAY | PROVIDERS: Visit Provider Radiology Diagnostic Radiology | DX: R90.82 White matter disease, unspecified (principal); G31.9 Degenerative disease of nervous system, unspecified | CPT/HCPCS: 70551 ==

== ENCOUNTER 2025-09-26 19:37 | Outpatient (REF) | payer MEDICARE, OTHER, SELFPAY ==
--- OUTSIDE RECORDS SUMMARY | 2024-09-04 02:30 | XMS_ITS ---
Author Organization [facility] Address [address] [place] [address] Care Team Providers Care Carrot Harvester Name Role Phone Lizandro (RETIRED) Darryl BEARD Primary Care Provide r Dakota Andino Jr REASON FOR VISIT screening Encounters Encounter Location Date Provider Diagnosis [facility] [place] [address] [place] [id number] 09/04/2024 Dakota Howell Jr Colon cancer screening Z12.11 and Personal history of colonic polyps Z86.0100 Assessments Encounter Date Diagnosis (ICD Code) Assessment Notes Treatment Notes Treatment Clinical Notes Section Notes 09/04/2024 Colon cancer screening (ICD-10 - Z12.11) 09/04/2024 Personal history of colonic polyps (ICD-10 - Z86.0100) Plan Of Treatment No Information Progress Notes * TEQUILA HERNANDEZ ADOB:[birth year] (75 yo M)Acc No.[id number]:09/04/2024 COLON WITH MAC Patient: TEQUILA SHARP Provider: Maverick Howell MD :1950 A ge:74 Y S ex:Male Date:09/04/2024 Address:[address] [place], [place] [id number] Pcp:Darryl Bone (RETIRED )MD Subjective: * Chief Complaints: * S creening Assessment: * Assessment: 1. C olon cancer screening - Z12.11 (Primary) 2 . P ersonal history of colonic polyps - Z86.0100 Plan: * Procedure Codes: G 0105 COLOREC CANCR SCR; COLNSCPY HI [id number] DIAGNOSTIC [id number] INTRVL 3+YRS PTS CLNSCP [id number] RCMND FLW-UP 10 YRS DOCD Billing Information: * Procedure Codes: G0105 COLOREC CANCR SCR; COLNSCPY HI RISK. 81374 DIAGNOSTIC COLONOSCOPY. 0529F INTRVL 3+YRS PTS CLNSCP DOCD. 0528F RCMND FLW-UP 10 YRS DOCD. * The named appointment provid er may or may not be the originator of this progress note, and it is not deemed complete until electronically signed by the appointment provider. Sign off status: Pending * Provider: Maverick Howell MD Date: 1 11/04/2023 Generated for Celena neri/Rashaun/Ap on: 11/27/2024 10:26 PM EST
--- NOTE | ~2025-09-26 | MR_ITS ---
EXAMINATION: MR BRAIN WITHOUT CONTRAST CLINICAL INFORMATION: R 42. Dizziness and giddiness. COMPARISON: Correlated to CT dated March 17, 2024. TECHNIQUE: MRI of the brain was obtained using routine sequences without contrast. FINDINGS: No restricted diffusion. No acute intracranial hemorrhage, mass effect, midline shift, hydrocephalus or herniation. Verma-white matter differentiation is normal. Bilateral multifocal patchy and punctate subcortical deep white matter hyperintense T2 FLAIR signal involving centrum semiovale, cooper radiata, miutl. 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 Flow-void signal within the main cerebral vessels is normal. Susceptibility signal within the left occipital and left frontal centrum semiovale and Prominence of the extra-axial CSF spaces cerebral sulci and ventricles pronounced at the frontoparietal lobes.. Sellar/suprasellar region demonstrated no signal abnormality or masses. Craniocervical junction is intact with normal position of the cerebellar tonsils. No signal abnormality or volume loss in the hippocampi. MR/MR head/brain wo con IMPRESSION: No acute brain abnormality. 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 Electronically signed by: Bartolo Hobbs MD 09/27/2025 06:36 AM EST
--- OUTSIDE RECORDS SUMMARY | 2025-09-26 22:26 | XMS_ITS | Patient Health Record ---
[facility] Address [address] [place] [id number] Care Team Providers Care R&D Lab Technician Name Role Phone Darryl Bone MD Primary Care Provider Unavaila Benjamin Cerda Unavailable [phone] Allergies No Known Allergies Reason For Referral [...] Coverage End Date Medicare [facility] [address] [place] [phone] [id number] Tristan Moon Self - patient is the insured [facility] [address] [place] [address] [id number] Olivia Moon Spouse - patient is the spouse of the insured Medical (General) History Medical History History ICD Code Chicken pox Surgical History Surgery Date(Month/Year)
--- OUTSIDE RECORDS SUMMARY | 2025-09-26 22:26 | XMS_ITS | Patient Health Record ---
Author Organization [facility] Address [address] [place] [address] Care Team Providers Care Home Health Care Worker Name Role Phone Lizandro (RETIRED) Darryl BEARD Primary Care Provide r Unavailable Dakota Howell Jr Unavailable Allergies No Known Allergies Reason For Referral No Information Social History Tobacco Use: Social History Observation Description Date Details (start date - stop date) Former Smoker NA - NA Social History Drugs/Alcohol: Social Info Question Answer Notes Alcohol Screen Did you have a drink containing alcohol in the past year? Yes How often did you have a drink containing alcohol in the past year? Monthly or less (1 point) How many drinks did you have on a typical day when you were drinking in the past year? 1 or 2 drinks (0 point) How often did you have 6 or more drinks on one occasion in the past year? Never (0 point) Points 1 Interpretation Negative Tobacco Use: Social Info Question Answer Notes Tobacco Use/Smoking Patient is a former smoker How long has it been since you last smoked? 5-10 years Additional Details Category Social Info Options Details Miscellaneous: Marital status: Occupation: retired Problems Problem Type SNOMED Code ICD Code Onset Dates Problem Status W/U Status Risk Notes Problem Colon cancer screening (020216986) Colon cancer screening (Z12.11) Active confirmed Problem Syncope and collapse (657913903) Syncope, unspecified syncope type (R55) Active confirmed Plan Of Treatment Future Test Test Name Order Date COLONOSCOPY 02/16/2018 COLONOSCOPY 06/27/2024 Insurance Providers Payer Name Payer Address Payer Phone Subscriber Number Group Number Insured Name Patient Relationship to Insured Coverage Start Date Coverage End Date [place] [address] [place] [id number] TEQUILA VILLEDA Self - patient is the insured [employer] ([employer]) [address] [place] [id number] TEQUILA VILLEDA Self - patient is the insured Medical (General) History Medical History History ICD Code elevated PSA with negative biopsy Syncope Surgical History Surgery Date(Month/Year) hernia repair
== END 2025-09-26 19:38 | disposition home or self-care (01) ==
LOC: HO.MRI 19:37
PROVIDERS: Visit Provider Physician Assistant Medical
DX: R42 Dizziness and giddiness (principal); R41.3 Other amnesia; Z87.898 Personal history of other specified conditions; R55 Syncope and collapse
CPT/HCPCS: 70551